=== PATIENT | female | born 2000 | race Two or more races ===

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

== ENCOUNTER 2021-07-30 16:52 | Outpatient (REF) | payer MEDICARE, MEDICAID, SELFPAY ==
[2021-07-30 18:38] LABS: Cholesterol 201 mg/dL; HDL Cholesterol 36 mg/dL; LDL Cholesterol Calculated 140 mg/dl; Triglycerides 126 mg/dL
[2021-07-31 11:07] LABS: DHEA Sulfate 258 mcg/dL (51-321)
[2021-08-01 06:21] LABS: Sex Hormone Binding Globulin 16 nmol/L (17-124)
[2021-08-02 11:42] LABS: Follicle Stimulating Hormone 8.2 mIU/mL
[2021-08-03 19:17] LABS: Testosterone, Free 5.1 pg/mL (0.1-6.4); Testosterone, Total 25 ng/dL (2-45)
[2021-08-04 21:47] LABS: Estradiol Free 0.89 pg/mL; Estradiol, Ultrasensitive 31 pg/mL
== END 2021-07-30 16:53 | disposition home or self-care (01) ==
LOC: HO.LAB 16:52
PROVIDERS: Visit Provider Pediatrics Pediatric Endocrinology
DX: E11.9 Type 2 diabetes mellitus without complications (principal); E66.01 Morbid (severe) obesity due to excess calories
CPT/HCPCS: 36415; 80061; 82627; 82670; 82681; 83001; 83498; 84270; 84402; 84403

== ENCOUNTER 2022-06-07 10:59 | Inpatient (IN) | payer MEDICARE, MEDICAID, SELFPAY ==
[2022-06-07 13:11] VITALS: BP 119/78; PULSE 91; RESP 18; TEMP 36.8; O2SAT 99; BMI 38.3
[2022-06-07 13:39] LABS: Appearance Urine Clear; Color Urine Yellow; Glucose Urine UA Negative (Negative); Leukocyte Esterase Urine Small (1+) (Negative); Nitrite Urine Negative (Negative); PH 5.5 (5.0-9.0); UMIC TRIGGER UACC YES; Urine Blood Negative (Negative); Urine Ketones Negative (Negative); Urine Protein Trace mg/dL (Neg-Trace)
[2022-06-07 13:59] LABS: Bacteria Urine None Seen (None Seen); Hyaline Casts Urine 0-2 /LPF (0-2); RBC Urine 0-2 /HPF (0-2); UACC Culture Trigger YES; WBC Urine 0-5 /HPF (0-5)
[2022-06-07 14:28] LABS: UPreg QC Valid YES; Urine Pregnancy NEGATIVE (NEGATIVE)
--- OUTSIDE RECORDS SUMMARY | 2022-06-07 18:20 | XMS_ITS | Continuity of Care Document ---
:2001 Author Organization [facility] Address [address] [place] [address]- Care Team Providers Name Role Phone Veronica Jones MD Primary Care Physician [place] [facility] [place] 04[place]14/20 [facility] [address] [place] [phone]- [facility] Attending Physician: Not on Staff, Attending MD Allergies, Adverse Reactions, Alerts Substance Reaction Severity Status NKA Active Medications Freestyle Lite Lancets See Instructions, # 200 each, Refills 11, Tot. Refills 11, Maintenance, IDDM. Use to check blood sugars 5-6x/day, 09/08/19 8:09:00 EST, Compound Start Date: 09/08/19 Status: OrderedFreestyle Lite Monitor See Instructions, # 2 each, Refills 5, Tot. Refills 5, Maintenance, IDDM. Use to check blood sugar. One for home and one for school, 09/08/19 8:08:00 EST, Compound Start Date: 09/08/19 Stop Date: 03/06/20 Status: OrderedFreestyle Lite Test Strips See Instructions, # 200 each, Refills 11, Tot. Refills 11, Maintenance, IDDM. Use to check blood sugar 5-6x/day, 09/08/19 8:11:00 EST, Compound Start Date: 09/08/19 Status: OrderedGlucagon Emergency Kit See Instructions, # 2 each, Refills 11, Tot. Refills 11, Maintenance, IDDM. Use for severe low bloodsugar. One for home and one for school, 10/29/19 16:42:00 EST, Compound, 148.4, cm, 10/29/19 15:59:00 EST, Height, 94, kg, 10/29/19 15:59:00 EST, Dry... Start Date: 10/29/19 Status: OrderedKetostix See Instructions, # 100 each, Refills 11, Tot. Refills 11, Maintenance, IDDM. Use to check for ketones if ill, vomiting or bg >250 twice in a row., 10/29/19 16:41:00 EST, Compound, 148.4, cm, 10/29/19 15:59:00 EST, Height, 94, kg, 10/29/19 15:59:00 ES... Start Date: 10/29/19 Status: OrderedmetFORMIN 500 mg oral tablet, extended release 2 tablet = 1,000 mg, By Mouth, 2 times a day, Please provide 2 month supply with next refill (st[place] country for month March), # 120 tablet, 6 Refills, Maintenance, 01/12/20 16:45:00 EDT,ER Tablet, [facility]/pharmacy #[id number], 148.4, cm, ... Start Date: 01/12/20 Stop Date: 08/09/20 Status: OrderedmetFORMIN 500 mg oral tablet, extended release 2 tablet = 1,000 mg, By Mouth, 2 times a day, for 30 days, # 120 tablet, 6 Refills, Hard Stop 06/30/20 8:41:00 EDT, 12/03/19 8:41:00 EDT, ER Tablet, [facility]/pharmacy #[id number], 148.4, cm, 10/29/19 15:59:00 EST, Height, 94, kg, 10/29/19 15:59:00 EST, Dry Weight Start Date: 12/03/19 Stop Date: 06/30/20 Status: OrderedPen [place], 32 G x 4 mm BD Ultra Fine III See instructions, # 200 each, Refills 5, Tot. Refills 5, Maintenance, use as directed for Type 2 Diabetes Mellitus to administer insulin daily, 09/08/19 15:39:00 EST, Compound, 148.1, cm, 09/08/19 12:51:00 EST, Height, 93.9, kg, 09/08/19 12:51:00 EST,... Start Date: 09/08/19 Stop Date: 03/06/20 Status: OrderedTresiba FlexTouch 100 units/mL subcutaneous solution = 50 units, Subcutaneous Infusion, Daily, Please provide 2 month supply with next refill (family will be out of country for month March), # 4 each, 11 Refills, Maintenance, 01/12/20 16:46:00 EDT, [id number], 148.4, cm, 10/29/19 15:59:00 ESTHe... Start Date: 01/12/20 Stop Date: 01/06/21 Status: Ordered Problem List Condition Effective Dates Status Health Status Informant Hyperandrogenism(Confirmed) Active Type 2 diabetes mellitus in patient 13 Active to 20 years of age with hemoglobin A1c goal of less than 7.5%(Confirmed)
--- OUTSIDE RECORDS SUMMARY | 2022-06-07 18:20 | XMS_ITS | Continuity of Care Document ---
:2001 Author Organization [facility] Address [address] [place] [phone]- Care Team Providers Name Role Phone Veronica Jones MD Primary Care Physician Encounter [facility] Date(s): 10/29/19 - 11/05/19 [facility] [address] [place] [phone]- [facility] Attending Physician: Not on Staff, Attending [...] mg, By Mouth, 2 times a day, # 120 tablet, 6 Refills, Maintenance, 09/08/19 15:38:00 EST, ER Tablet, [facility]/pharmacy #[id number], 148.1, cm, 09/08/19 12:51:00 EST, Height, 93.9, kg, 09/08/19 12:51:00 EST, Dry Weight Start Date: 09/08/19 Stop Date: 04/05/20 Status: OrderedPen [place], 32 G x 4 mm BD Ultra Fine III See instructions, # 200 each, Refills 5, Tot. Refills 5, Maintenance, use as directed for Type 2 Diabetes Mellitus to administer insulin daily, 09/08/19 15:39:00 EST, Compound, 148.1, cm, 09/08/19 12:51:00 EST, Height, 93.9, kg, 09/08/19 12:51:00 EST,... Start Date: 09/08/19 Stop Date: 03/06/20 Status: OrderedTresiba FlexTouch 100 units/mL subcutaneous solution = 25 units, Subcutaneous Infusion, Daily, # 1 each, 3 Refills, Maintenance, 09/13/19 14:40:00 EST, [id number], 147, cm, 09/13/19 13:07:00 EST, Height, 94.3, kg, 09/13/19 13:07:00 EST, Dry Weight Start Date: 09/13/19 Stop Date: 01/11/20 Status: Ordered Problem List Condition Effective Dates Status Health Status Informant Hyperandrogenism(Confirmed) Active Vital Signs Most recent to oldest [Reference Range]: 1 Height 148.4 cm (10/29/19 3:59 PM) Weight 94.0 kg (10/29/19 3:59 PM) Pulse Rate [55-90 bpm] 115 bpm *H* (10/29/19 3:59 PM) Body Mass Index [18.5-24.99] 42.68 *>HHI* (10/29/19 3:59 PM) Blood Pressure [71-110/30-71 mm Hg] 117/79 mm Hg *H* (10/29/19 3:59 PM) Dry Weight 94.0 kg (10/29/19 3:59 PM)
--- OUTSIDE RECORDS SUMMARY | 2022-06-07 18:20 | XMS_ITS | Continuity of Care Document ---
:2001 Author Organization [facility] Address [address] [place] [phone]- Care Team Providers Name Role Phone Veronica Jones MD Primary Care Physician [place] [facility] [place]s): 11/16/21 - 12/16/21 [facility] [address] [place] [phone]- Attending Physician: Toribio Guajardo Admitting Physician: Toribio Guajardo Referring Physician: Toribio Guajardo Allergies, Adverse Reactions, Alerts No Known Allergies Medications Freestyle Lite Lancets See Instructions, # 200 each, Refills 11, Tot. Refills 11, Maintenance, IDDM. Use to check blood sugars 6x/day, 11/16/21 16:21:00 EDT, Compound, 148, cm, 09/14/21 8:50:00 EST, Height, 95.6, kg, 08/17/21 13:04:00 EST, Dry Weight Start Date: 11/16/21 Status: OrderedFreestyle Lite Monitor See Instructions, # 2 each, Refills 5, Tot. Refills 5, Maintenance, IDDM. Use to check blood sugar. One for home and one for school, 08/17/21 13:43:00 EST, Compound, 148, cm, 08/17/21 13:04:00 EST, Height, 95.6, kg, 08/17/21 13:04:00 EST, Dry Weight Start Date: 08/17/21 Stop Date: 02/13/22 Status: OrderedFreestyle Lite Test Strips See Instructions, # 200 each, Refills 11, Tot. Refills 11, Maintenance, IDDM. Use to check blood sugar 6x/day, 11/16/21 16:21:00 EDT, Compound, 148, cm, 09/14/21 8:50:00 EST, Height, 95.6, kg, 08/17/2113:04:00 EST, Dry Weight Start Date: 11/16/21 Status: OrderedmetFORMIN 500 mg oral tablet, extended release 2 tablet = 1,000 mg, By Mouth, 2 times a day, for 30 days, Please provide 3 month supply with next refill (family will be out of country until end january), # 360 tablet, 5 Refills, Hard Stop 05/15/22 14:41:00 EDT, 11/16/21 14:41:00 EDT, ER Tablet, CV... Start Date: 11/16/21 Stop Date: 05/15/22 Status: OrderedmetFORMIN 500 mg oral tablet, extended release 2 tablet = 1,000 mg, By Mouth, 2 times a day, Please provide 3 month supply with next refill (familywill be out of country until end january), # 360 tablet, 5 Refills, Maintenance, 05/15/22 14:41:00 EDT, ER Tablet, [id number], 148, cm, ... Start Date: 05/15/22 Stop Date: 11/11/22 Status: OrderedOzempic 2 mg/1.5 mL (0.25 mg or 0.5 mg dose) subcutaneous solution = 0.25 mg, Subcutaneous Infusion, Every Friday, patient will be out of the country for 3 mo please give 3 mo supply, # 4.5 mL, 5 Refills, Maintenance, 11/16/21 14:41:00 EDT, [id number], Partial fill upon patient request if the prescription... Start Date: 11/16/21 Status: OrderedPen [place], 32 G x 4 mm BD Ultra Fine III See instructions, # 200 each, Refills 5, Tot. Refills 5, Maintenance, use as directed for Type 2 Diabetes Mellitus to administer insulin daily, 11/16/21 14:41:00 EDT, Compound, 148, cm, 09/14/21 8:50:00 EST, Height, 95.6, kg, 08/17/21 13:04:00 EST, Start Date: 11/16/21 Stop Date: 05/15/22 Status: OrderedTresiba FlexTouch 100 units/mL subcutaneous solution = 80 units, Subcutaneous Infusion, Daily, patient is leaving country for 3 mo please give 3 mo supply, # 45 mL, 5 Refills, Maintenance, 11/16/21 14:41:00 EDT, [id number], 148, cm, 09/14/21 8:50:00 EST, Height, 95.6, kg, 08/17/21 13:04:00 EST,... Start Date: 11/16/21 Stop Date: 05/15/22 Status: Ordered Problem List Condition Effective Dates Status Health Status Informant Hyperandrogenism(Confirmed) Active Type 2 diabetes mellitus in patient 13 Active to 20 years of age with hemoglobin A1c goal of less than 7.5%(Confirmed) Morbid obesity(Confirmed) Active Severe obesity(Confirmed) Active
--- OUTSIDE RECORDS SUMMARY | 2022-06-07 18:21 | XMS_ITS | Continuity of Care Document ---
:2001 Author Organization [facility] Address [address] [place] [phone]- Care Team Providers Name Role Phone Veronica Jones MD Primary Care Physician [place] [facility] 09/13/19 - 09/20/19 [facility] [address] [place] [phone]- [facility] Attending Physician: Fernanda Chiu MD Referring Physician: Veronica Jones MD Allergies, Adverse Reactions, Alerts Substance Reaction [...] 8:11:00 EST, Compound Start Date: 09/08/19 Status: OrderedmetFORMIN 500 mg oral tablet, extended release 2 tablet = 1,000 mg, By Mouth, 2 times a day, # 120 tablet, 6 Refills, Maintenance, 09/08/19 15:38:00 EST, ER Tablet, [id number], 148.1, cm, 09/08/19 12:51:00 EST, Height, 93.9, kg, 09/08/19 12:51:00 EST, Dry Weight Start Date: 09/08/19 Stop Date: 04/05/20 Status: OrderedPen [place], 32 G x 4 mm BD Ultra [...] recent to oldest [Reference Range]: 1 Height 147.0 cm (09/13/19 1:07 PM) Weight 94.3 kg (09/13/19 1:07 PM) Pulse Rate [55-90 bpm] 114 bpm *H* (09/13/19 1:07 PM) Body Mass Index [18.5-24.99] 43.64 *>HHI* (09/13/19 1:07 PM) Blood Pressure [71-110/30-71 mm Hg] 117/76 mm Hg *H* (09/13/19 1:07 PM) Dry Weight 94.3 kg (09/13/19 1:07 PM)
--- OUTSIDE RECORDS SUMMARY | 2022-06-07 18:21 | XMS_ITS | Continuity of Care Document ---
:2001 Author Organization [facility] Address [address] [place] [address]- Care Team Providers Name Role Phone Veronica Jones MD Primary Care Physician [place] [facility] [place]s): 06/22/21 - 07/22/21 [facility] [address] [place] [phone]- [place] Allergies, Adverse Reactions, Alerts Substance Reaction Severity Status NKA Active Medications Freestyle Lite Lancets See Instructions, # 200 each, Refills 11, Tot. Refills 11, Maintenance, IDDM. Use to check blood sugars 5-6x/day, 07/12/21 17:24:00 EST, Compound, 148.4, cm, 07/12/21 16:12:00 EST, Height, 96.8, kg, 07/12/21 16:12:00 EST, Dry Weight Start Date: 07/12/21 Status: OrderedFreestyle Lite Monitor See Instructions, # 2 each, Refills 5, Tot. Refills 5, Maintenance, IDDM. Use to check blood sugar. One for home and one for school, 07/12/21 17:24:00 EST, Compound, 148.4, cm, 07/12/21 16:12:00 EST, Height, 96.8, kg, 07/12/21 16:12:00 EST, Dry Weight Start Date: 07/12/21 Stop Date: 01/08/22 Status: OrderedFreestyle Lite Test Strips See Instructions, # 200 each, Refills 11, Tot. Refills 11, Maintenance, IDDM. Use to check blood sugar 5-6x/day, 07/12/21 17:24:00 EST, Compound, 148.4, cm, 07/12/21 16:12:00 EST, Height, 96.8, kg, 07/12/21 16:12:00 EST, Dry Weight Start Date: 07/12/21 Status: OrderedGlucagon Emergency Kit See Instructions, # [...] country for month March), # 120 tablet, 5 Refills, Maintenance, 07/12/21 17:07:00 EST,ER Tablet, [facility]/pharmacy #1, 148.4, cm, ... Start Date: 07/12/21 Stop Date: 01/08/22 Status: OrderedPen [place], 32 G x 4 mm BD Ultra Fine III See instructions, # 200 each, Refills 5, Tot. Refills 5, Maintenance, use as directed for Type 2 Diabetes Mellitus to administer insulin daily, 07/12/21 17:08:00 EST, Compound, 148.4, cm, 07/12/21 16:12:00 EST, Height, 96.8, kg, 07/12/21 16:12:00 EST,... Start Date: 07/12/21 Stop Date: 01/08/22 Status: OrderedTresiba FlexTouch 100 units/mL subcutaneous solution = 80 units, Subcutaneous Infusion, Daily, # 15 mL, 5 Refills, Maintenance, 07/12/21 17:07:00 EST, [id number], 148.4, cm, 07/12/21 16:12:00 EST, Height, 96.8, kg, 07/12/21 16:12:00 EST, Dry Weight Start Date: 07/12/21 Stop Date: 01/08/22 Status: Ordered Problem List Condition Effective Dates Status Health Status Informant Hyperandrogenism(Confirmed) Active Type 2 diabetes mellitus in patient 13 Active to 20 years of age with hemoglobin A1c goal of less than 7.5%(Confirmed) Morbid obesity(Confirmed) Active Severe obesity(Confirmed) Active
--- OUTSIDE RECORDS SUMMARY | 2022-06-07 18:21 | XMS_ITS | Continuity of Care Document ---
:2001 Author Organization [facility] Address [address] [place] [phone]- Care Team Providers Name Role Phone Veronica Jones MD Primary Care Physician [place] [facility] [place] [facility] [address] [place] [phone]- [facility] Attending Physician: Fernanda Chiu MD Referring Physician: [...] Date: 09/08/19 Stop Date: 04/05/20 Status: OrderedPen [place], 32 G x 4 mm BD Ultra [...] recent to oldest [Reference Range]: 1 Height 148.1 cm (09/08/19 12:51 PM) Weight 93.9 kg (09/08/19 12:51 PM) Pulse Rate [55-90 bpm] 115 bpm *H* (09/08/19 12:51 PM) Body Mass Index [18.5-24.99] 42.81 *>HHI* (09/08/19 12:51 PM) Blood Pressure [71-110/30-71 mm Hg] 125/73 mm Hg *H* (09/08/19 12:51 PM) Blood pressure sites Arm, right (09/08/19 12:51 PM) Dry Weight 93.9 kg (09/08/19 12:51 PM) Weight Obtained Via Standing scale (09/08/19 12:51 PM)
--- OUTSIDE RECORDS SUMMARY | 2022-06-07 18:21 | XMS_ITS | Continuity of Care Document ---
:2001 Author Organization [facility] Address [address] [place] [phone]- Care Team Providers Name Role Phone Veronica Jones MD Primary Care Physician [place] [facility] [place] 05/09/21 - 06/08/21 [facility] [address] [place] [phone]- [place] Allergies, Adverse Reactions, Alerts Substance Reaction [...] IDDM. Use to check blood sugar 5-6x/day, 06/01/20 15:39:00 EDT, Compound, 148.4, cm, 10/29/19 15:59:00 EST, Height, 94, kg, 10/29/19 15:59:00 EST, Dry Weight Start Date: 06/01/20 Status: OrderedGlucagon Emergency Kit See Instructions, # [...] country for month March), # 120 tablet, 0 Refills, Maintenance, 05/09/21 13:42:00 EDT,ER Tablet, [id number], 148.4, cm, ... Start Date: 05/09/21 Stop Date: 06/08/21 Status: OrderedPen [place], 32 G x 4 mm BD Ultra Fine III See instructions, # 200 each, Refills 5, Tot. Refills 5, Maintenance, use as directed for Type 2 Diabetes Mellitus to administer insulin daily, 11/06/20 13:22:00 EST, Compound, 148.4, cm, 10/29/19 15:59:00 EST, Height, 94, kg, 10/29/19 15:59:00 EST, D... Start Date: 11/06/20 Stop Date: 05/05/21 Status: OrderedTresiba FlexTouch 100 units/mL subcutaneous solution = 50 units, Subcutaneous Infusion, Daily, # 4 each, 0 Refills, Maintenance, 05/09/21 13:42:00 EDT, [id number], 148.4, cm, 10/29/19 15:59:00 EST, Height, 94, kg, 10/29/19 15:59:00 EST, Dry Weight Start Date: 05/09/21 Stop Date: 06/08/21 Status: Ordered Problem List Condition Effective Dates Status Health Status Informant Hyperandrogenism(Confirmed) Active Type 2 diabetes mellitus in patient 13 Active to 20 years of age with hemoglobin A1c goal of less than 7.5%(Confirmed) Morbid obesity(Confirmed) Active
--- OUTSIDE RECORDS SUMMARY | 2022-06-07 18:21 | XMS_ITS | Continuity of Care Document ---
:2001 Author Organization [facility] Address [address] [place] [address]- Care Team Providers Name Role Phone Veronica Jones MD Primary Care Physician Encounter [facility] Date(s): 10/29/19 - 12/10/19 [facility] [address] [place] [phone]- [facility] Attending Physician: Not on Staff, Attending MD [...] day, # 120 tablet, 6 Refills, Maintenance, 06/30/20 8:41:00EDT, ER Tablet, [facility]/pharmacy #[id number], 148.4, cm, 10/29/19 15:59:00 EST, Height, 94, kg, 10/29/19 15:59:00 EST, Dry Weight Start Date: 06/30/20 Stop Date: 01/26/21 Status: OrderedmetFORMIN 500 mg oral tablet, extended release 2 tablet = 1,000 mg, By Mouth, 2 times a day, for 30 days, # 120 tablet, 6 Refills, Hard Stop 06/30/20 8:41:00 EDT, 12/03/19 8:41:00 EDT, ER Tablet, [facility]/pharmacy #[id number], 148.4, cm, 10/29/19 15:59:00 EST, Height, 94, kg, 10/29/19 15:59:00 EST, Dry Weight Start Date: 12/03/19 Stop Date: 06/30/20 Status: OrderedPen [place], 32 G x 4 mm BD Ultra [...] units, Subcutaneous Infusion, Daily, # 4 each, 11 Refills, Maintenance, 12/02/19 15:10:00 EDT, [facility]/pharmacy #[id number], 148.4, cm, 10/29/19 15:59:00 EST, Height, 94, kg, 10/29/19 15:59:00 EST, Dry Weight Start Date: 12/02/19 Stop Date: 11/26/20 Status: Ordered Problem List Condition Effective Dates Status Health Status Informant Hyperandrogenism(Confirmed) Active Type 2 diabetes mellitus in patient 13 Active to 20 years of age with hemoglobin A1c goal of less than 7.5%(Confirmed)
--- OUTSIDE RECORDS SUMMARY | 2022-06-07 18:21 | XMS_ITS | Continuity of Care Document ---
:2001 Author Organization [facility] Address [address] [place] [phone]- Care Team Providers Name Role Phone Veronica Jones MD Primary Care Physician Encounter [facility] [place] Date(s): 09/17/19 - 10/24/19 [facility] [address] [place] [phone]- [facility] Attending Physician: Not on Staff, [...] Date: 09/08/19 Stop Date: 04/05/20 Status: OrderedPen [place], 32 G x 4 mm BD Ultra [...]
--- OUTSIDE RECORDS SUMMARY | 2022-06-07 18:21 | XMS_ITS | Continuity of Care Document ---
:2001 Author Organization [facility] Address [address] [place] [phone]- Care Team Providers Name Role Phone Veronica Jones MD Primary Care Physician En[place] [facility] [place] Date(s): 08/18/21 - 12/16/21 [facility] [address] [place] [phone]- Attending Physician: Not on Staff, Attending MD Allergies, Adverse Reactions, Alerts No Known Allergies [...] the prescription... Start Date: 11/16/21 Status: OrderedPen [place], 32 G x 4 mm BD Ultra Fine III See instructions, # 200 each, Refills 5, Tot. Refills 5, Maintenance, use as directed for Type 2 Diabetes Mellitus to administer insulin daily, 11/16/21 14:41:00 EDT, Compound, 148, cm, 09/14/21 8:50:00 EST, Height, 95.6, kg, 08/17/21 13:04:00 ESTDr... Start Date: 11/16/21 Stop Date: 05/15/22 Status: [...]
--- OUTSIDE RECORDS SUMMARY | 2022-06-07 18:21 | XMS_ITS | Continuity of Care Document ---
:2001 Author Organization [facility] Address [address] [place] [phone]- Care Team Providers Name Role Phone Veronica Jones MD Primary Care Physician En[place] [facility] [place] Date(s): 09/14/21 - 10/14/21 [facility] [address] [place] [phone]- Allergies, Adverse Reactions, Alerts No Known Allergies [...] EST, Dry Weight Start Date: 07/12/21 Status: OrderedKetostix See Instructions, # 100 each, [...] 5 Refills, Maintenance, 07/12/21 17:07:00 EST,ER Tablet, [facility]/pharmacy #[id number], 148.4, cm, ... Start Date: 07/12/21 Stop Date: 01/08/22 Status: OrderedOzempic 2 mg/1.5 mL (0.25 mg or 0.5 mg dose) subcutaneous solution = 0.25 mg, Subcutaneous Infusion, Every Friday, # 1.5 mL, 5 Refills, Maintenance, 08/20/21 11:33:00 EST, [facility]/pharmacy #[id number], Partial fill upon patient request if the prescription is for a schedule II opioid drug., 0.25 mg Subcutaneous Infusion Ever... Start Date: 08/20/21 Status: OrderedPen [place], 32 G x 4 mm BD Ultra Fine III See instructions, # 200 each, Refills 5, Tot. Refills 5, Maintenance, use as directed for Type 2 Diabetes Mellitus to administer insulin daily, 07/12/21 17:08:00 EST, Compound, 148.4, cm, 07/12/21 16:12:00 EST, Height, 96.8, kg, 07/12/21 16:12:00 EST,... Start Date: 07/12/21 Stop Date: 01/08/22 Status: OrderedProvera 10 mg oral tablet 10 mg, 1, tablet, By Mouth, Daily, # 10 tablet, Refills 5, Tot. Refills 5, Maintenance, 08/23/21 17:21:00 EST, Route to Pharmacy Electronically, [facility]/pharmacy #[id number], Partial fill upon patient request ifthe prescription is for a schedule II opioid drug... Start Date: 08/23/21 Stop Date: 10/22/21 Status: OrderedTresiba FlexTouch 100 units/mL subcutaneous solution = 80 units, Subcutaneous Infusion, Daily, # 15 mL, 5 Refills, Maintenance, 07/12/21 17:07:00 EST, [facility]/pharmacy #[id number], 148.4, cm, 07/12/21 16:12:00 EST, Height, 96.8, kg, 07/12/21 16:12:00 EST, Dry Weight Start Date: 07/12/21 Stop Date: 01/08/22 Status: Ordered Problem List Condition Effective Dates Status Health Status Informant Hyperandrogenism(Confirmed) Active Type 2 diabetes mellitus in patient 13 Active to 20 years of age with hemoglobin A1c goal of less than 7.5%(Confirmed) Morbid obesity(Confirmed) Active Severe obesity(Confirmed) Active Vital Signs Most recent to oldest [Reference Range]: 1 Height 148 cm (09/14/21 8:50 AM) Weight 95.6 kg (09/14/21 8:50 AM)
--- OUTSIDE RECORDS SUMMARY | 2022-06-07 18:21 | XMS_ITS | Continuity of Care Document ---
:2001 Author Organization [facility] Address [address] [place] [address]- Care Team Providers Name Role Phone Veronica Jones MD Primary Care Physician [facility] Date(s): 11/10/19 - 11/20/19 [facility] [address] [place] [address]- [facility] Attending Physician: Admtr, Ar8 Admitting Physician: Admtr, Ar8 Referring Physician: Admtr, Ar8 Allergies, Adverse Reactions, Alerts Substance Reaction Severity [...] Refills, Maintenance, 09/08/19 15:38:00 EST, ER Tablet, [facility]/pharmacy #[id number], 148.1, cm, 09/08/19 12:51:00 EST, Height, 93.9, kg, 09/08/19 12:51:00 EST, Dry Weight Start Date: 09/08/19 Stop Date: 04/05/20 Status: OrderedPen [place], 32 G x 4 mm BD Ultra Fine III See instructions, # 200 each, Refills 5, Tot. Refills 5, Maintenance, use as directed for Type 2 Diabetes Mellitus to administer insulin daily, 09/08/19 15:39:00 EST, Compound, 148.1, cm, 09/08/19 12:51:00 EST, Height, 93.9, kg, 09/08/19 12:51:00 EST,... Start Date: 09/08/19 Stop Date: 03/06/20 Status: OrderedTresiba FlexTouch 100 units/mL subcutaneous solution = 30 units, Subcutaneous Infusion, Daily, # 1 each, 1 Refills, Maintenance, 01/11/20 14:40:00 EDT, [facility]/pharmacy #[id number], 148.4, cm, 10/29/19 15:59:00 EST, Height, 94, kg, 10/29/19 15:59:00 EST, Dry Weight Start Date: 01/11/20 Stop Date: 03/11/20 Status: OrderedTresiba FlexTouch 100 units/mL subcutaneous solution = 25 units, Subcutaneous Infusion, Daily, for 30 days, # 1 each, 3 Refills, Hard Stop 01/11/20 14:40:00 EDT, 09/13/19 14:40:00 EST, [id number], 147, cm, 09/13/19 13:07:00 EST, Height, 94.3, kg,09/13/19 13:07:00 EST, Dry Weight Start Date: 09/13/19 Stop Date: 01/11/20 Status: Ordered Problem List Condition Effective Dates Status Health Status Informant Hyperandrogenism(Confirmed) Active
--- OUTSIDE RECORDS SUMMARY | 2022-06-07 18:21 | XMS_ITS | Continuity of Care Document ---
:2001 Author Organization [facility] Address [address] [place] [address]- Care Team Providers Name Role Phone Veronica Jones MD Primary Care Physician [facility] Date(s): 10/29/19 - 12/10/19 [facility] [address] [place] [phone]- [facility] Attending Physician: Bethany Benedict Allergies, Adverse Reactions, Alerts Substance Reaction Severity [...] 6 Refills, Maintenance, 06/30/20 8:41:00EDT, ER Tablet, [facility]/pharmacy #[id number], 148.4, cm, 10/29/19 15:59:00 EST, Height, 94, kg, 10/29/19 15:59:00 EST, Dry Weight Start Date: 06/30/20 Stop Date: 01/26/21 Status: OrderedmetFORMIN 500 mg oral tablet, extended release 2 tablet = 1,000 mg, By Mouth, 2 times a day, for 30 days, # 120 tablet, 6 Refills, Hard Stop 06/30/20 8:41:00 EDT, 12/03/19 8:41:00 EDT, ER Tablet, [facility]/pharmacy #[id number], 148.4, cm, 10/29/19 15:59:00 EST, Height, 94, kg, 10/29/19 15:59:00 EST, Dry Weight Start Date: 12/03/19 Stop Date: 06/30/20 Status: OrderedPen [place], 32 G x 4 mm BD Ultra Fine III See instructions, # 200 each, Refills 5, Tot. Refills 5, Maintenance, use as directed for Type 2 Diabetes Mellitus to administer insulin daily, 09/08/19 15:39:00 EST, Compound, 148.1, cm, 09/08/19 12:51:00 EST, Height, 93.9, kg, 09/08/19 12:51:00 EST,... Start Date: 09/08/19 Stop Date: 7/6/20 Status: OrderedTresiba FlexTouch 100 units/mL subcutaneous solution = 50 units, Subcutaneous Infusion, Daily, # 4 each, 11 Refills, Maintenance, 12/02/19 15:10:00 EDT, [facility]/pharmacy #[id number], 148.4, cm, 10/29/19 15:59:00 EST, Height, 94, kg, 10/29/19 15:59:00 EST, Dry Weight Start Date: 12/02/19 Stop Date: 11/26/20 Status: Ordered Problem List Condition Effective Dates Status Health Status Informant Hyperandrogenism(Confirmed) Active Type 2 diabetes mellitus in patient 13 Active to 20 years of age with hemoglobin A1c goal of less than 7.5%(Confirmed)
--- OUTSIDE RECORDS SUMMARY | 2022-06-07 18:21 | XMS_ITS | Continuity of Care Document ---
:2001 Author Organization [facility] Address [address] [place] [address]- Care Team Providers Name Role Phone Veronica Jones MD Primary Care Physician Encounter [facility] [place] [id number] Date(s): 06/15/20 - 08/13/20 [facility] [address] [place] [address]- Attending Physician: Rikki Duran MD Admitting Physician: Rikki Duran MD Allergies, Adverse Reactions, Alerts Substance Reaction [...] provide 2 month supply with next refill ([place]), # 120 tablet, 6 Refills, Maintenance, 01/12/20 16:45:00 EDT,ER Tablet, [id number], 148.4, cm, ... Start Date: 01/12/20 Stop Date: 08/09/20 Status: OrderedPen [place], 32 G x 4 mm BD Ultra [...] (family will be out of country for march), # 4 each, 11 Refills, Maintenance, 01/12/20 16:46:00 EDT, [id number], 148.4, cm, 10/29/19 15:59:00 EST, He... Start Date: 01/12/20 Stop Date: 01/06/21 Status: Ordered Problem List Condition Effective Dates Status Health Status Informant Hyperandrogenism(Confirmed) Active Type 2 diabetes mellitus in patient 13 Active to 20 years of age with hemoglobin A1c goal of less than 7.5%(Confirmed) Morbid obesity(Confirmed) Active
--- OUTSIDE RECORDS SUMMARY | 2022-06-07 18:21 | XMS_ITS | Continuity of Care Document ---
:2001 Author Organization [facility] Address [address] [place] [address]- Care Team Providers Name Role Phone Veronica Jones MD Primary Care Physician En[place] [facility] [place] Date(s): 08/23/21 - 09/22/21 [facility] [address] [place] [phone]- [place] Allergies, Adverse Reactions, Alerts No Known Allergies [...] 5 Refills, Maintenance, 07/12/21 17:07:00 EST,ER Tablet, [facility]/pharmacy #[id number], 148.4, cm, ... Start Date: 07/12/21 Stop Date: 01/08/22 Status: OrderedOzempic 2 mg/1.5 mL (0.25 mg or 0.5 mg dose) subcutaneous solution = 0.25 mg, Subcutaneous Infusion, Every Friday, # 1.5 mL, 5 Refills, Maintenance, 08/20/21 11:33:00 EST, [facility]/pharmacy #[id number], Partial fill upon patient request if the prescription is for a schedule II opioid drug., 0.25 mg Subcutaneous Infusion Ever... Start Date: 08/20/21 Status: OrderedPen [place], 32 G x 4 mm BD Ultra [...] 08/23/21 17:21:00 EST, Route to Pharmacy Electronically, [facility]/pharmacy #[id number], Partial fill upon patient request ifthe prescription is for a schedule II opioid drug... Start Date: 08/23/21 Stop Date: 10/22/21 Status: OrderedTresiba FlexTouch 100 units/mL subcutaneous solution = 80 units, Subcutaneous Infusion, Daily, # 15 mL, 5 Refills, Maintenance, 07/12/21 17:07:00 EST, [id number], 148.4, cm, 07/12/21 16:12:00 EST, Height, [...]
--- OUTSIDE RECORDS SUMMARY | 2022-06-07 18:21 | XMS_ITS | Continuity of Care Document ---
:2001 Author Organization [facility] Address [address] [place] [address]- Care Team Providers Name Role Phone Veronica Jones MD Primary Care Physician En[place] [facility] Date(s): 07/14/20 - 08/13/20 [facility] [address] [place] [address]- Attending Physician: Admtr, Ar8 Admitting Physician: Admtr, [...] Date: 01/12/20 Stop Date: 08/09/20 Status: OrderedPen [place], 32 G x 4 mm BD Ultra [...]
--- OUTSIDE RECORDS SUMMARY | 2022-06-07 18:21 | XMS_ITS | Continuity of Care Document ---
:2001 Author Organization [facility] Address [address] [place] [address]- Care Team Providers Name Role Phone Veronica Jones MD Primary Care Physician [facility] Date(s): 01/12/20 - 02/11/20 [facility] [address] [place] [phone]- [facility] Attending Physician: Admtr, Ar8 Admitting Physician: Admtr, [...] 6 Refills, Maintenance, 01/12/20 16:45:00 EDT,ER Tablet, [facility]/pharmacy #[id number], 148.4, cm, ... Start Date: 01/12/20 Stop Date: 08/09/20 Status: OrderedmetFORMIN 500 mg oral tablet, extended release 2 tablet = 1,000 mg, By Mouth, 2 times a day, for 30 days, # 120 tablet, 6 Refills, Hard Stop 06/30/20 8:41:00 EDT, 12/03/19 8:41:00 EDT, ER Tablet, [facility]/pharmacy #[id number], 148.4, cm, 10/29/19 15:59:00 EST, Height, 94, kg, 10/29/19 15:59:00 EST, Dry Weight Start Date: 12/03/19 Stop Date: 06/30/20 Status: OrderedPen [place], 32 G x 4 mm BD Ultra [...]
--- OUTSIDE RECORDS SUMMARY | 2022-06-07 18:21 | XMS_ITS | Continuity of Care Document ---
:2001 Author Organization [facility] Address [address] [place] [address]- Care Team Providers Name Role Phone Karen HUYNH, Veronica Primary Care Physician Encounter [facility] Date(s): 12/02/19 - 12/09/19 [facility] [address] [place] [address]- [facility] Attending Physician: Rikki Duran MD Allergies, Adverse Reactions, [...] 6 Refills, Maintenance, 06/30/20 8:41:00EDT, ER Tablet, [facility]/pharmacy #[id number], 148.4, cm, 10/29/19 15:59:00 EST, Height, 94, kg, 10/29/19 15:59:00 EST, Dry Weight Start Date: 06/30/20 Stop Date: 01/26/21 Status: OrderedmetFORMIN 500 mg oral tablet, extended release 2 tablet = 1,000 mg, By Mouth, 2 times a day, for 30 days, # 120 tablet, 6 Refills, Hard Stop 06/30/20 8:41:00 EDT, 12/03/19 8:41:00 EDT, ER Tablet, [facility]/pharmacy #[id number], 148.4, cm, 10/29/19 15:59:00 EST, Height, 94, kg, 10/29/19 15:59:00 EST, Dry Weight Start Date: 12/03/19 Stop Date: 06/30/20 Status: OrderedPen [place], 32 G x 4 mm BD Ultra [...] each, 11 Refills, Maintenance, 12/02/19 15:10:00 EDT, [facility]/pharmacy #[id number], 148.4, cm, 10/29/19 15:59:00 EST, Height, 94, kg, 10/29/19 15:59:00 EST, Dry Weight Start Date: 12/02/19 Stop Date: 11/26/20 Status: Ordered Problem List Condition Effective Dates Status Health Status Informant Hyperandrogenism(Confirmed) Active Type 2 diabetes mellitus in patient 13 Active to 20 years of age with hemoglobin A1c goal of less than 7.5%(Confirmed)
--- OUTSIDE RECORDS SUMMARY | 2022-06-07 18:21 | XMS_ITS | Continuity of Care Document ---
:2001 Author Organization [facility] Address [address] [place] [address]- Care Team Providers Name Role Phone Veronica Jones MD Primary Care Physician Encounter [facility] [place] Date(s): 09/24/19 - 10/31/19 [facility] [address] [place] [address]- [facility] Attending Physician: Justin HUYHN, Kateryna Referring Physician: Veronica Jones MD Allergies, Adverse [...] Refills, Maintenance, 09/08/19 15:38:00 EST, ER Tablet, [facility]/pharmacy #[id number], 148.1, cm, 09/08/19 12:51:00 EST, Height, 93.9, kg, 09/08/19 12:51:00 EST, Dry Weight Start Date: 09/08/19 Stop Date: 04/05/20 Status: OrderedPen [place], 32 G x 4 mm BD Ultra [...] each, 3 Refills, Maintenance, 09/13/19 14:40:00 EST, [facility]/pharmacy #[id number], 147, cm, 09/13/19 13:07:00 EST, Height, 94.3, kg, 09/13/19 13:07:00 EST, Dry Weight Start Date: 09/13/19 Stop Date: 01/11/20 Status: Ordered Problem List Condition Effective Dates Status Health Status Informant Hyperandrogenism(Confirmed) Active
--- OUTSIDE RECORDS SUMMARY | 2022-06-07 18:21 | XMS_ITS | Continuity of Care Document ---
:2001 Author Organization [facility] Address [address] [place] [address]- Care Team Providers Name Role Phone Veronica Jones MD Primary Care Physician Encounter [facility] Date(s): 07/23/21 - 08/22/21 [facility] [address] [place] [address]- [place] Allergies, Adverse Reactions, Alerts Substance Reaction [...] 5 Refills, Maintenance, 07/12/21 17:07:00 EST,ER Tablet, [facility]/pharmacy #207, 148.4, cm, ... Start Date: 07/12/21 Stop Date: 01/08/22 Status: OrderedOzempic 2 mg/1.5 mL (0.25 mg or 0.5 mg dose) subcutaneous solution = 0.25 mg, Subcutaneous Infusion, Every Friday, # 1.5 mL, 5 Refills, Maintenance, 08/20/21 11:33:00 EST, [facility]/pharmacy #207, Partial fill upon patient request if the prescription is for a schedule II opioid drug., 0.25 mg Subcutaneous Infusion Ever... Start Date: 08/20/21 Status: OrderedPen [place], 32 G x 4 mm BD Ultra [...]
--- OUTSIDE RECORDS SUMMARY | 2022-06-07 18:21 | XMS_ITS | Continuity of Care Document ---
:2001 Author Organization [facility] Address [address] [place] [address]- Care Team Providers Name Role Phone Veronica Jones MD Primary Care Physician Encounter [facility] [place] Date(s): 04/07/20 - 05/07/20 [facility] [address] [place] [phone]- [facility] Attending Physician: Admtr, Ar8 Admitting Physician: Admtr, [...] 6 Refills, Maintenance, 01/12/20 16:45:00 EDT,ER Tablet, [facility]/pharmacy #[id number], 148.4, cm, ... Start Date: 01/12/20 Stop Date: 08/09/20 Status: OrderedmetFORMIN 500 mg oral tablet, extended release 2 tablet = 1,000 mg, By Mouth, 2 times a day, for 30 days, # 120 tablet, 6 Refills, Hard Stop 06/30/20 8:41:00 EDT, 12/03/19 8:41:00 EDT, ER Tablet, [facility]/pharmacy #[id number], 148.4, cm, 10/29/19 15:59:00 EST, Height, 94, kg, 10/29/19 15:59:00 EST, Dry Weight Start Date: 12/03/19 Stop Date: 06/30/20 Status: OrderedPen [place], 32 G x 4 mm BD Ultra [...]
--- OUTSIDE RECORDS SUMMARY | 2022-06-07 18:21 | XMS_ITS | Continuity of Care Document ---
:2001 Author Organization [facility] Address [address] [place] [address]- Care Team Providers Name Role Phone Veronica Jones MD Primary Care Physician Encounter [facility] [place] Date(s): 09/07/19 - 10/07/19 [facility] [address] [place] [address]- [facility] Attending Physician: Fernanda Chiu MD Referring Physician: [...] Date: 09/08/19 Stop Date: 04/05/20 Status: OrderedPen [place], 32 G x 4 mm BD Ultra [...]
--- OUTSIDE RECORDS SUMMARY | 2022-06-07 18:21 | XMS_ITS | Continuity of Care Document ---
:2001 Author Organization [facility] Address [address] [place] [address]- Care Team Providers Name Role Phone Veronica Jones MD Primary Care Physician [facility]counter [facility] Date(s): 10/29/19 - 11/08/19 [facility] [address] [place] [address]- [facility] Attending Physician: AdmtrToribio Admitting Physician: Admtr, Toribio Referring Physician: Admtr, Ar8 Allergies, Adverse Reactions, [...] Maintenance, 09/08/19 15:38:00 EST, ER Tablet, [facility]/pharmacy #[id number], 148.1, cm, 09/08/19 12:51:00 EST, Height, 93.9, kg, 09/08/19 12:51:00 EST, Dry Weight Start Date: 09/08/19 Stop Date: 04/05/20 Status: OrderedPen [place], 32 G x 4 mm BD Ultra [...]
--- OUTSIDE RECORDS SUMMARY | 2022-06-07 18:21 | XMS_ITS | Continuity of Care Document ---
:2001 Author Organization [facility] Address [address] [place] [address]- Care Team Providers Name Role Phone Veronica Jones MD Primary Care Physician Encounter [facility] Date(s): 08/23/21 - 09/28/[address] [address] Attending Physician: Rikki Duran MD Admitting Physician: Rikki Duran MD Referring Physician: Rikki Duran MD Allergies, Adverse Reactions, Alerts No Known [...] 5 Refills, Maintenance, 07/12/21 17:07:00 EST,ER Tablet, [facility]/pharmacy #[id number], 148.4, cm, ... Start Date: 07/12/21 Stop Date: 01/08/22 Status: OrderedOzempic 2 mg/1.5 mL (0.25 mg or 0.5 mg dose) subcutaneous solution = 0.25 mg, Subcutaneous Infusion, Every Friday, # 1.5 mL, 5 Refills, Maintenance, 08/20/21 11:33:00 EST, [facility]/pharmacy #[id number], Partial fill upon patient request if the prescription is for a schedule II opioid drug., 0.25 mg Subcutaneous Infusion Ever... Start Date: 08/20/21 Status: OrderedPen [place], 32 G x 4 mm BD Ultra [...] 08/23/21 17:21:00 EST, Route to Pharmacy Electronically, [facility]/pharmacy #[id number], Partial fill upon patient request ifthe prescription is for a schedule II opioid drug... Start Date: 08/23/21 Stop Date: 10/22/21 Status: OrderedTresiba FlexTouch 100 units/mL subcutaneous solution = 80 units, Subcutaneous Infusion, Daily, # 15 mL, 5 Refills, Maintenance, 07/12/21 17:07:00 EST, [facility]/pharmacy #[id number], 148.4, cm, 07/12/21 16:12:00 EST, Height, [...]
--- OUTSIDE RECORDS SUMMARY | 2022-06-07 18:21 | XMS_ITS | Continuity of Care Document ---
:2001 Author Organization [facility] Address [address] [place] [address]- Care Team Providers Name Role Phone Veronica Jones MD Primary Care Physician Encounter [facility] [place] Date(s): 11/09/21 - 12/09/21 [facility] [address] [place] [address]- [place] Allergies, Adverse Reactions, Alerts No Known [...] the prescription... Start Date: 11/16/21 Status: OrderedPen [place], 32 G x 4 mm BD Ultra [...]
--- OUTSIDE RECORDS SUMMARY | 2022-06-07 18:21 | XMS_ITS | Continuity of Care Document ---
:2001 Author Organization [facility] Address [address] [place] [address]- Care Team Providers Name Role Phone Veronica Jones MD Primary Care Physician [place] [facility] 09/06/19 - 10/07/19 [facility] [address] [place] [phone]- [facility] Attending Physician: Not on Staff, [...] Date: 09/08/19 Stop Date: 04/05/20 Status: OrderedPen [place], 32 G x 4 mm BD Ultra [...]
--- NOTE | 2022-06-07 19:05 | ED_ITS ---
HPI - Abdominal Pain General Chief Complaint: Abdominal Pain <TONA Pastrana Last Filed: 06/07/22 21:39> Stated Complaint: Source: patient Filed: 06/07/22 21:39> Time Seen by Provider: 06/07/22 19:04 <TONA Pastrana Last Filed: 06/07/22 21:39> Source: patient <TONA Pastrana Last Filed: 06/07/22 21:39> Mode of arrival: ambulatory <TONA Pastrana Last Filed: 06/07/22 21:39> Limitations: no limitations <TONA Pastrana Last Filed: 06/07/22 21:39> History of Present Illness HPI narrative: 22 yo female with history of DM2, obesity, who presents to the ER for evaluation of upper abdominal pain that radiates to her lower abdomen & back as well as nausea and vomiting that started several days ago. She reports the pain is mostly in her upper abdomen and her bilateral middle/lower back. She has been vomiting the last couple of days, last was earlier today. No diarrhea, fever, chills, SOB or chest pain. She reports the pain starts in her epigastric area Severity: moderate Quality: aching TONA Stephenson Last Filed: 06/07/22 21:39> MD elicited complaint: Exacerbating factors: eating 21:39> Pertinent past history: none <TONA Pastrana Last Filed: 06/07/22 21:39> Onset (ago): day(s) <TONA Pastrana Last Filed: 06/07/22 21:39> Location: epigastric <TONA Pastrana Last Filed: 06/07/22 21:39> Severity: No Known Allergies Allergy Unverified 05/18/20 18:43 [No Known Allergies*] Review of Systems Review of Systems Relieving factors: nothing <TONA Pastrana Last Filed: 06/07/22 21:39> Associated symptoms: nausea and vomiting <TONA Pastrana Last Filed: 06/07/22 21:39> Related Data Patient : No <TONA Pastrana Last Filed: 06/07/22 21:39> Home Medications: Previous Rx's Medication Instructions Recorded ondansetron 4 mg disintegrating 4 mg PO Q6H PRN nausea and 06/07/22 tablet vomiting #14 tabs <TONA Pastrana - Last Filed: 06/07/22 21:39> Review of Systems Allergy/AdvReac Type Severity Reaction Status Date / Time No Known Allergies Allergy Unverified 05/18/20 18:43 [No Known Allergies*] <TONA Pastrana - Last Filed: 06/07/22 21:39> Review of Systems Review of Systems Constitutional: No Fever, No Chills ENT/Mouth: No sore throat, No Rhinorrhea, No Swallowing Difficulty Cardiovascular: No Chest Pain, No SOB, No Orthopnea, No Edema Respiratory: No Cough, No Sputum, No Wheezing, No dyspnea Gastrointestinal: + Nausea, +Vomiting, No Diarrhea, + abdominal Pain, No Hematochezia, No Melena Genitourinary: No Dysuria, No Urinary Frequency, No Hematuria Musculoskeletal: No joint pain, + Myalgias Skin: No Skin Lesions, No rash Neuro: No Weakness, No Numbness, No Dizziness, No Headache Psych: No Anxiety/Panic, No Depression Heme/Lymph: No Bruising, No Lymphadenopathy Endocrine: No Polyuria, No Polydipsia <TONA Pastrana - Last Filed: 06/07/22 21:39> [facility] Social History Social History: Social History Yes 19:51 Physical Exam ED Vital Signs: 06/07/22 13:11 06/07/22 19:51 06/07/22 22:00 Temperature 98.2 F 98.1 F 98.4 F Pulse Rate 91 100 92 Respiratory Rate 18 18 18 Blood Pressure 119/78 131/80 111/63 Pulse Oximetry 99 98 98 Oxygen Delivery Method Room Air Room Air BMI result Anion Gap (12-20) BUN (9-16) mg/dL Creatinine (0.5-1.4) mg/dL Estim Creat Clear Calc Estimated GFR POC Glucose 208 H (60-115) mg/dL Random Glucose (60-115) mg/dL Calcium (8.4-10.2) mg/dL Magnesium (1.6-2.6) mg/dL Total Bilirubin (0.0-1.0) mg/dL Direct Bilirubin (0.0-0.5) mg/dL AST (5-31) U/L ALT (0-31) U/L Alkaline Phosphatase (39-117) U/L Total Protein (6.5-8.0) g/dL Albumin (3.5-5.0) g/dL Triglycerides mg/dL Lipase Urine Color Yellow Body Mass Index 38.3 <TONA Pastrana - Last Filed: 06/07/22 21:39> Vital Signs - 24 hr 13:11 06/07/22 Urine Appearance Clear Urine pH 5.5 (5.0-9.0) Ur Specific [place] 1.020 (1.005-1.025)
--- NOTE | 2022-06-07 19:05 | ED.ABDPAIN ---
HPI - Abdominal Pain General Chief Complaint: Abdominal Pain <TONA Pastrana Last Filed: 06/07/22 21:39> Stated Complaint: abdf pain rad. to back/vomiting/diabetic <TONA Pastrana Last Filed: 06/07/22 21:39> Time Seen by Provider: 06/07/22 19:04 <TONA Pastrana - Last Filed: 06/07/22 21:39> Source: patient <TONA Pastrana Last Filed: 06/07/22 21:39> Mode of arrival: ambulatory <TONA Pastrana Last Filed: 06/07/22 21:39> Limitations: no limitations <TONA Pastrana Last Filed: 06/07/22 21:39> History of Present Illness HPI narrative: 22 yo female with history of DM2, obesity, who presents to the ER for evaluation of upper abdominal pain that radiates to her lower abdomen & back as well as nausea and vomiting that started several days ago. She reports the pain is mostly in her upper abdomen and her bilateral middle/lower back. She has been vomiting the last couple of days, last was earlier today. No diarrhea, fever, chills, SOB or chest pain. She reports the pain starts in her epigastric area and radiates to bilateral lower quadrants. She denies any urinary symtpoms or possibility of . Denies vaginal discharge or concern for STI. <TONA Pastrana - Last Filed: 06/07/22 21:39> MD elicited complaint: abdominal pain and flank pain <TONA Pastrana Last Filed: 06/07/22 21:39> Pertinent past history: none <TONA Pastrana Last Filed: 06/07/22 21:39> Onset (ago): day(s) <TONA Pastrana Last Filed: 06/07/22 21:39> Pain Consistency: intermittent <TONA Pastrana Last Filed: 06/07/22 21:39> Location: epigastric <TONA Pastrana Last Filed: 06/07/22 21:39> Severity: moderate <TONA Pastrana Last Filed: 06/07/22 21:39> Quality: aching <TONA Pastrana Last Filed: 06/07/22 21:39> Radiation: LLQ and RLQ <TONA Pastrana Last Filed: 06/07/22 21:39> Migration to: LLQ and RLQ <TONA Pastrana Last Filed: 06/07/22 21:39> Exacerbating factors: eating <TONA Pastrana Last Filed: 06/07/22 21:39> Relieving factors: nothing <TONA Pastrana Last Filed: 06/07/22 21:39> Associated symptoms: nausea and vomiting <TONA Pastrana Last Filed: 06/07/22 21:39> Related Data Patient : No <TONA Pastrana Filed: 06/07/22 21:39> Home Medications: Previous Rx's Medication Instructions Recorded ondansetron 4 mg disintegrating 4 mg PO Q6H PRN nausea and 06/07/22 tablet vomiting #14 tabs <TONA Pastrana Last Filed: 06/07/22 21:39> Allergies/Adverse Reactions: Allergies Allergy/AdvReac Type Severity Reaction Status Date / Time No Known Allergies Allergy Unverified 05/18/20 18:43 [No Known Allergies*] <TONA Pastrana Last Filed: 06/07/22 21:39> Review of Systems Review of Systems Constitutional: No Fever, No Chills ENT/Mouth: No sore throat, No Rhinorrhea, No Swallowing Difficulty Cardiovascular: No Chest Pain, No SOB, No Orthopnea, No Edema Respiratory: No Cough, No Sputum, No Wheezing, No dyspnea Gastrointestinal: + Nausea, +Vomiting, No Diarrhea, + abdominal Pain, No Hematochezia, No Melena Genitourinary: No Dysuria, No Urinary Frequency, No Hematuria Musculoskeletal: No joint pain, + Myalgias Skin: No Skin Lesions, No rash Neuro: No Weakness, No Numbness, No Dizziness, No Headache Psych: No Anxiety/Panic, No Depression Heme/Lymph: No Bruising, No Lymphadenopathy Endocrine: No Polyuria, No Polydipsia <TONA Pastrana Last Filed: 06/07/22 21:39> [facility] Social History Social History: Social History Alcohol intake: never Patient Tobacco Use Status: Never used Tobacco Use of substances other than those prescribed or required for medical reasons: Yes Advance Directives: No Advance Directives Information Provided: No Patient : No <TONA Pastrana - Last Filed: 06/07/22 21:39> Physical Exam ED Vital Signs: Vital Signs - 24 hr 06/07/22 13:11 06/07/22 19:51 06/07/22 22:00 Temperature 98.2 F 98.1 F 98.4 F Pulse Rate 91 100 92 Respiratory Rate 18 18 18 Blood Pressure 119/78 131/80 111/63 Pulse Oximetry 99 98 98 Oxygen Delivery Method Room Air Room Air BMI result Body Mass Index 38.3 <TONA Pastrana - Last Filed: 06/07/22 21:39> Vital Signs - 24 hr 06/07/22 13:11 06/07/22 19:51 06/07/22 22:00 Temperature 98.2 F 98.1 F 98.4 F Pulse Rate 91 100 92 Respiratory Rate 18 18 18 Blood Pressure 119/78 131/80 111/63 Pulse Oximetry 99 98 98 Oxygen Delivery Method Room Air Room Air BMI result Body Mass Index 38.3 <TONA Douglas - Last Filed: 06/07/22 23:48> Appearance: Alert. Oriented X3. No acute distress. Eyes: Pupils equal, round and reactive to light. ENT: Pharynx normal. Neck: Normal inspection. Neck supple. CVS: Normal heart rate and rhythm. Pulses normal. Respiratory: No respiratory distress. Breath sounds normal. Abdomen: Obese Soft with epigastric tenderness, periumbilacal tenderness, normal +BS x4. +CVA tenderness bilaterally. Skin: Skin warm and dry. Normal skin color. Normal skin turgor. No rashes. Extremities: No lower extremity edema. Neuro: Oriented X 3. No motor deficit. No sensory deficit. <TONA Pastrana - Last Filed: 06/07/22 21:39> Course Course Course Narrative: 22 yo female with history of DM2 presenting to the ER with several days of N/V and abdominal pain. She also endorses back pain and has CVA tenderness on exam, however this is bilateral and she has no urinary symptoms; may be muscular from vomiting. Central abd tenderness on exam but soft without peritoneal signs, negative Hamilton's sign. UA and Upreg preformed in triage - not , small leukocyte esterase, 0-5 WBC, no bacteria. Doubt UTI. Will get lab workup and CT scan for further evaluation. Will check POC as well, doubt DKA. IVF, anti-emetic and morphine ordered, will reassess. <TONA Pastrana - Last Filed: 06/07/22 21:39> Reevaluation(s) Reevaluation #1: WBC 14.5, most likely reactive from vomiting. CMP and CT scan pending. <TONA Pastrana Last Filed: 06/07/22 21:39> Reevaluation #2: CBC with leukocytosis likely secondary to reactivity from nausea vomiting. Chemistry with no acute findings requiring intervention. No anion gap, no electrolyte abnormalities, low suspicion for DKA. CT of the abdomen pelvis pending at this time. Patient feeling slightly better. <TONA Douglas - Last Filed: 06/07/22 23:48> Time: 21:57 <TONA Douglas - Last Filed: 06/07/22 23:48> Reevaluation #3: Patient with markedly elevated lipase consistent with acute pancreatitis. At this time patient will be admitted to the hospital for further intervention and treatment. More IV fluids ordered at this time. <TONA Douglas - Last Filed: 06/07/22 23:48> Time: 22:20 <TONA Douglas - Last Filed: 06/07/22 23:48> MDM - Abdominal Pain Lab Data Result diagrams: : 06/07/22 20:04 06/07/22 21:01 <TONA Pastrana - Last Filed: 06/07/22 21:39> Labs: Lab Results 06/07/22 06/07/22 06/07/22 Range/Units 13:24 13:24 19:53 WBC (4.8-10.8) X10*3/uL RBC (4.20-5.50) X10*6/uL Hgb (12.0-16.0) g/dl Hct (37.0-47.0) % MCV (80.0-98.0) fL MCH (27.0-33.0) pg MCHC (31.0-35.0) g/dl RDW (11.0-16.0) % Plt Count (160-400) X10*3/uL MPV (9.4-12.3) fL Immature Gran % (Auto) (0.0-0.4) % Neut % (Auto) (45-73) % Lymph % (Auto) (20-40) % [place] % (Auto) (2-11) % Eos % (Auto) (0-4) % Baso % (Auto) (0-2) % Lymph # (Auto) (1.2-4.9) X10*3/uL [place] # (Auto) (0.1-1.2) X10*3/uL Eos # (Auto) (0.0-0.4) X10*3/uL Baso # (Auto) (0.0-0.2) X10*3/uL Abs Immat Gran (auto) (0.00-0.03) X10*3/uL Absolute Neuts (auto) (2.0-8.3) x10*3/uL Absolute Nucleated RBC (0.0-0.012) X10*3/uL Nucleated RBC % (auto) (0.0-0.2) /100WBC Sodium (135-145) mmol/L Potassium (3.3-5.1) mmol/L Chloride (96-108) mmol/L Carbon Dioxide (22-29) mmol/L Anion Gap (12-20) BUN (9-16) mg/dL Creatinine (0.5-1.4) mg/dL Estim Creat Clear Calc Estimated GFR POC Glucose 208 H (60-115) mg/dL Random Glucose (60-115) mg/dL Calcium (8.4-10.2) mg/dL Magnesium (1.6-2.6) mg/dL Total Bilirubin (0.0-1.0) mg/dL Direct Bilirubin (0.0-0.5) mg/dL AST (5-31) U/L ALT (0-31) U/L Alkaline Phosphatase (39-117) U/L Total Protein (6.5-8.0) g/dL Albumin (3.5-5.0) g/dL Triglycerides mg/dL Lipase Urine Color Yellow Urine Appearance Clear Urine pH 5.5 (5.0-9.0) Ur Specific [place] 1.020 (1.005-1.025) Urine Protein Trace (Neg-Trace) mg/dL Urine Glucose (UA) Negative (Negative) mg/dL Urine Ketones Negative (Negative) mg/dL Urine Blood Negative (Negative) Urine Nitrite Negative (Negative) Ur Leukocyte Esterase Small (1+) H (Negative) Urine RBC 0-2 (0-2) /HPF Urine WBC 0-5 (0-5) /HPF Ur Squamous Epith Cells 3-5 (0-2) /HPF Urine Bacteria None Seen (None Seen) Hyaline Casts 0-2 (0-2) /LPF Urine Test NEGATIVE (NEGATIVE) 06/07/22 06/07/22 06/07/22 Range/Units 20:04 20:04 21:01 WBC 14.2 H (4.8-10.8) X10*3/uL RBC 5.22 (4.20-5.50) X10*6/uL Hgb 14.1 (12.0-16.0) g/dl Hct 42.4 (37.0-47.0) % MCV 81.2 (80.0-98.0) fL MCH 27.0 (27.0-33.0) pg MCHC 33.3 (31.0-35.0) g/dl RDW 12.6 (11.0-16.0) % Plt Count 391 (160-400) X10*3/uL MPV 10.0 (9.4-12.3) fL Immature Gran % (Auto) 0.5 H (0.0-0.4) % Neut % (Auto) 74.8 H (45-73) % Lymph % (Auto) 19.0 L (20-40) % [place] % (Auto) 4.2 (2-11) % Eos % (Auto) 1.1 (0-4) % Baso % (Auto) 0.4 (0-2) % Lymph # (Auto) 2.7 (1.2-4.9) X10*3/uL [place] # (Auto) 0.6 (0.1-1.2) X10*3/uL Eos # (Auto) 0.2 (0.0-0.4) X10*3/uL Baso # (Auto) 0.1 (0.0-0.2) X10*3/uL Abs Immat Gran (auto) 0.07 H (0.00-0.03) X10*3/uL Absolute Neuts (auto) 10.6 H (2.0-8.3) x10*3/uL Absolute Nucleated RBC 0.000 (0.0-0.012) X10*3/uL Nucleated RBC % (auto) 0.0 (0.0-0.2) /100WBC Sodium 143 (135-145) mmol/L Potassium 3.9 (3.3-5.1) mmol/L Chloride 106 (96-108) mmol/L Carbon Dioxide 26 (22-29) mmol/L Anion Gap 15 (12-20) BUN 11 (9-16) mg/dL Creatinine 0.70 (0.5-1.4) mg/dL Estim Creat Clear Calc 121.1 Estimated GFR > 60 POC Glucose (60-115) mg/dL Random Glucose 178 H (60-115) mg/dL Calcium 8.9 (8.4-10.2) mg/dL Magnesium 1.9 (1.6-2.6) mg/dL Total Bilirubin < 0.2 (0.0-1.0) mg/dL Direct Bilirubin < 0.2 (0.0-0.5) mg/dL AST 45 H (5-31) U/L ALT 49 H (0-31) U/L Alkaline Phosphatase 102 (39-117) U/L Total Protein 7.4 (6.5-8.0) g/dL Albumin 4.1 (3.5-5.0) g/dL Triglycerides 66 mg/dL Lipase Cancelled 1697 H Urine Color Urine Appearance Urine pH (5.0-9.0) Ur Specific [place] (1.005-1.025) Urine Protein (Neg-Trace) mg/dL Urine Glucose (UA) (Negative) mg/dL Urine Ketones (Negative) mg/dL Urine Blood (Negative) Urine Nitrite (Negative) Ur Leukocyte Esterase (Negative) Urine RBC (0-2) /HPF Urine WBC (0-5) /HPF Ur Squamous Epith Cells (0-2) /HPF Urine Bacteria (None Seen) Hyaline Casts (0-2) /LPF Urine Test (NEGATIVE) <TONA Pastrana - Last Filed: 06/07/22 21:39> Lab Results 06/07/22 06/07/22 06/07/22 Range/Units 13:24 13:24 19:53 WBC (4.8-10.8) X10*3/uL RBC (4.20-5.50) X10*6/uL Hgb (12.0-16.0) g/dl Hct (37.0-47.0) % MCV (80.0-98.0) fL MCH (27.0-33.0) pg MCHC (31.0-35.0) g/dl RDW (11.0-16.0) % Plt Count (160-400) X10*3/uL MPV (9.4-12.3) fL Immature Gran % (Auto) (0.0-0.4) % Neut % (Auto) (45-73) % Lymph % (Auto) (20-40) % [place] % (Auto) (2-11) % Eos % (Auto) (0-4) % Baso % (Auto) (0-2) % Lymph # (Auto) (1.2-4.9) X10*3/uL [place] # (Auto) (0.1-1.2) X10*3/uL Eos # (Auto) (0.0-0.4) X10*3/uL Baso # (Auto) (0.0-0.2) X10*3/uL Abs Immat Gran (auto) (0.00-0.03) X10*3/uL Absolute Neuts (auto) (2.0-8.3) x10*3/uL Absolute Nucleated RBC (0.0-0.012) X10*3/uL Nucleated RBC % (auto) (0.0-0.2) /100WBC Sodium (135-145) mmol/L Potassium (3.3-5.1) mmol/L Chloride (96-108) mmol/L Carbon Dioxide (22-29) mmol/L Anion Gap (12-20) BUN (9-16) mg/dL Creatinine (0.5-1.4) mg/dL Estim Creat Clear Calc Estimated GFR POC Glucose 208 H (60-115) mg/dL Random Glucose (60-115) mg/dL Calcium (8.4-10.2) mg/dL Magnesium (1.6-2.6) mg/dL Total Bilirubin (0.0-1.0) mg/dL Direct Bilirubin (0.0-0.5) mg/dL AST (5-31) U/L ALT (0-31) U/L Alkaline Phosphatase (39-117) U/L Total Protein (6.5-8.0) g/dL Albumin (3.5-5.0) g/dL Triglycerides mg/dL Lipase Urine Color Yellow Urine Appearance Clear Urine pH 5.5 (5.0-9.0) Ur Specific [place] 1.020 (1.005-1.025) Urine Protein Trace (Neg-Trace) mg/dL Urine Glucose (UA) Negative (Negative) mg/dL Urine Ketones Negative (Negative) mg/dL Urine Blood Negative (Negative) Urine Nitrite Negative (Negative) Ur Leukocyte Esterase Small (1+) H (Negative) Urine RBC 0-2 (0-2) /HPF Urine WBC 0-5 (0-5) /HPF Ur Squamous Epith Cells 3-5 (0-2) /HPF Urine Bacteria None Seen (None Seen) Hyaline Casts 0-2 (0-2) /LPF Urine Test NEGATIVE (NEGATIVE) 06/07/22 06/07/22 06/07/22 Range/Units 20:04 20:04 21:01 WBC 14.2 H (4.8-10.8) X10*3/uL RBC 5.22 (4.20-5.50) X10*6/uL Hgb 14.1 (12.0-16.0) g/dl Hct 42.4 (37.0-47.0) % MCV 81.2 (80.0-98.0) fL MCH 27.0 (27.0-33.0) pg MCHC 33.3 (31.0-35.0) g/dl RDW 12.6 (11.0-16.0) % Plt Count 391 (160-400) X10*3/uL MPV 10.0 (9.4-12.3) fL Immature Gran % (Auto) 0.5 H (0.0-0.4) % Neut % (Auto) 74.8 H (45-73) % Lymph % (Auto) 19.0 L (20-40) % [place] % (Auto) 4.2 (2-11) % Eos % (Auto) 1.1 (0-4) % Baso % (Auto) 0.4 (0-2) % Lymph # (Auto) 2.7 (1.2-4.9) X10*3/uL [place] # (Auto) 0.6 (0.1-1.2) X10*3/uL Eos # (Auto) 0.2 (0.0-0.4) X10*3/uL Baso # (Auto) 0.1 (0.0-0.2) X10*3/uL Abs Immat Gran (auto) 0.07 H (0.00-0.03) X10*3/uL Absolute Neuts (auto) 10.6 H (2.0-8.3) x10*3/uL Absolute Nucleated RBC 0.000 (0.0-0.012) X10*3/uL Nucleated RBC % (auto) 0.0 (0.0-0.2) /100WBC Sodium 143 (135-145) mmol/L Potassium 3.9 (3.3-5.1) mmol/L Chloride 106 (96-108) mmol/L Carbon Dioxide 26 (22-29) mmol/L Anion Gap 15 (12-20) BUN 11 (9-16) mg/dL Creatinine 0.70 (0.5-1.4) mg/dL Estim Creat Clear Calc 121.1 Estimated GFR > 60 POC Glucose (60-115) mg/dL Random Glucose 178 H (60-115) mg/dL Calcium 8.9 (8.4-10.2) mg/dL Magnesium 1.9 (1.6-2.6) mg/dL Total Bilirubin < 0.2 (0.0-1.0) mg/dL Direct Bilirubin < 0.2 (0.0-0.5) mg/dL AST 45 H (5-31) U/L ALT 49 H (0-31) U/L Alkaline Phosphatase 102 (39-117) U/L Total Protein 7.4 (6.5-8.0) g/dL Albumin 4.1 (3.5-5.0) g/dL Triglycerides 66 mg/dL Lipase Cancelled 1697 H Urine Color Urine Appearance Urine pH (5.0-9.0) Ur Specific [place] (1.005-1.025) Urine Protein (Neg-Trace) mg/dL Urine Glucose (UA) (Negative) mg/dL Urine Ketones (Negative) mg/dL Urine Blood (Negative) Urine Nitrite (Negative) Ur Leukocyte Esterase (Negative) Urine RBC (0-2) /HPF Urine WBC (0-5) /HPF Ur Squamous Epith Cells (0-2) /HPF Urine Bacteria (None Seen) Hyaline Casts (0-2) /LPF Urine Test (NEGATIVE) <TONA Douglas - Last Filed: 06/07/22 23:48> Discharge Plan Discharge Clinical Impression: Vomiting, Abdominal pain, Acute pancreatitis <TONA Pastrana - Last Filed: 06/07/22 21:39> Patient Disposition: Admitted As Inpatient <TONA Pastrana - Last Filed: 06/07/22 21:39> Additional Instructions: Take your medications as prescribed. If you were prescribed antibiotics today, it is important that you take your medication to their entirety, do not skip any doses, do not finish them early. Follow-up with your primary care provider this week. Return to the emergency department with new or worsening symptoms. Such as fevers, chills, chest pain, shortness of breath, nausea, vomiting, dizziness, headache, vision changes, lethargy In case of emergency call 911 <TONA Pastrana - Last Filed: 06/07/22 21:39>
[2022-06-07 19:51] VITALS: BP 131/80; PULSE 100; RESP 18; TEMP 36.7; O2SAT 98
[2022-06-07] MEDS: 0.9 % Sodium Chloride 1,000 ML 999 ML IVCONT (20:09)
[2022-06-07 20:14] LABS: MANUAL DIFF FLAG NO
[2022-06-07 20:17] LABS: Glucose, Whole Blood 208 mg/dL (60-115)
[2022-06-07 20:17] LABS: Basophils Absolute Auto 0.1 X10*3/uL (0.0-0.2); Basophils Percent Auto 0.4 % (0-2); Eosinophils Absolute Auto 0.2 X10*3/uL (0.0-0.4); Eosinophils Percent Auto 1.1 % (0-4); Hematocrit 42.4 % (37.0-47.0); Hemoglobin 14.1 g/dl (12.0-16.0); Imm Gran Abs Auto 0.07 X10*3/uL (0.00-0.03); Imm Gran Pct Auto 0.5 % (0.0-0.4); Lymphocytes Absolute Auto 2.7 X10*3/uL (1.2-4.9); Mean Corpuscular HGB Conc 33.3 g/dl (31.0-35.0); Mean Corpuscular Volume 81.2 fL (80.0-98.0); Monocytes Absolute Auto 0.6 X10*3/uL (0.1-1.2); Monocytes Percent Auto 4.2 % (2-11); Neutrophils Absolute Auto 10.6 x10*3/uL (2.0-8.3); Neutrophils Percent Auto 74.8 % (45-73); Platelet Count 391 X10*3/uL (160-400); Red Blood Count 5.22 X10*6/uL (4.20-5.50); Red Cell Distribution Width 12.6 % (11.0-16.0); White Blood Count 14.2 X10*3/uL (4.8-10.8)
[2022-06-07] MEDS: ondansetron HCL 4 MG/2 ML VIAL IVPUSH (20:29)
[2022-06-07] MEDS: Morphine Sulfate 4 MG/ML CARTRIDGE IVPUSH (20:29)
[2022-06-07 21:34] LABS: Alanine Aminotransferase 49 U/L (0-31); Albumin Level 4.1 g/dL (3.5-5.0); Alkaline Phosphatase 102 U/L (39-117); Anion Gap 15 (12-20); Aspartate Amino Transferase 45 U/L (5-31); Bilirubin Direct < 0.2 mg/dL (0.0-0.5); Bilirubin Total < 0.2 mg/dL (0.0-1.0); Blood Urea Nitrogen 11 mg/dL (9-16); Calcium 8.9 mg/dL (8.4-10.2); Carbon Dioxide 26 mmol/L (22-29); Chloride 106 mmol/L (96-108); Creatinine Clr Calc Pharmacy 121.1; Estimated Glomerular Filt Rate > 60; Glucose Random 178 mg/dL (60-115); Magnesium 1.9 mg/dL (1.6-2.6); Potassium 3.9 mmol/L (3.3-5.1); Sodium 143 mmol/L (135-145); Total Protein 7.4 g/dL (6.5-8.0)
[2022-06-07] MEDS: iohexoL 350 MG/ML 100 ML INFUS..BTL IV (21:55)
[2022-06-07 22:00] VITALS: BP 111/63; PULSE 92; RESP 18; TEMP 36.9; O2SAT 98
[2022-06-07 22:11] LABS: Lipase 1697 U/L (8-78)
[2022-06-07 23:20] LABS: Triglycerides 66 mg/dL
--- NOTE | 2022-06-07 23:52 | PM.IMHP ---
History of Present Illness Date of Service: 06/07/22 Chief Complaint: abd pain 22-year-old female with past medical history of diabetes, asthma presents from home with complaints of nausea vomiting and abdominal pain patient describes the pain as epigastric, radiating to the right upper quadrant as well as to the back, associated with episodes of nausea vomiting, no diarrhea. No fever or chills. No previous similar episode. Denies any alcohol use. Reports no headache or change in vision, no chest pain, no shortness of breath, no urinary symptoms and no lower extremity edema On arrival to the ED patient hemodynamically stable Labs are significant for WBC count of 14.2, lipase of 1697, UA positive for leukocyte Estrace and some WBC, Abdomen pelvic CT showed no significant abnormality Review of Systems Review of Systems: Yes all other systems are reviewed and are negative [facility] Medical History (Updated 06/08/22 @ 06:48 by Carolina Sifuentes MD) Asthma Diabetes Family History (Updated 06/08/22 @ 06:48 by Carolina Sifuentes MD) Mother Diabetes Hypertension Surgical History (Updated 06/08/22 @ 06:48 by Carolina Sifuentes MD) No pertinent past surgical history Social History Alcohol intake: never Patient Tobacco Use Status: Never used Tobacco Use of substances other than those prescribed or required for medical reasons: Yes Advance Directives: No Advance Directives Information Provided: No Patient : No Meds Allergies Allergy/AdvReac Type Severity Reaction Status Date / Time No Known Allergies Allergy Unverified 05/18/20 18:43 [No Known Allergies*] Active Medications: Current Medications Pharmacy Consult (Consult Rx Perform Med Rec) 1 each MISCELLANE ONCE PRN PRN Reason: Consult order Physical Exam Vital Signs and Narrative: Vital Signs: Last Vital Signs Temp 98.4 F 06/07/22 22:00 Pulse 92 06/07/22 22:00 Resp 18 06/07/22 22:00 BP 111/63 06/07/22 22:00 Pulse Ox 98 06/07/22 22:00 O2 Del Method 06/07/22 19:51 BMI result Body Mass Index 38.3 Const: General: cooperative and no acute distress Orientation/consciousness: patient oriented x3 Eyes: General: appearance normal, both eyes and all related structures Resp: Effort & Inspection: normal respiratory effort Auscultation: clear to auscultation bilaterally Cardio: Rate: regular rate Rhythm: regular rhythm GI: Other: Tender in the epigastric region, no rebound or guarding Palpation (GI): Soft to palpation Auscultation: normal bowel sounds Skin: General skin exam: no rashes or lesions noted Neuro: General: patient oriented x3 Cognition (Neuro): normal cognition Extrem: General: Yes normal to inspection and Yes no pedal edema Results Labs CBC and Chem 7: 06/07/22 20:04 06/07/22 21:01 Labs: Laboratory Results - last 24 hr 06/07/22 06/07/22 06/07/22 13:24 13:24 19:53 MCV MCH MCHC RDW Plt Count MPV Immature Gran % (Auto) Neut % (Auto) Lymph % (Auto) [place] % (Auto) Eos % (Auto) Baso % (Auto) Lymph # (Auto) [place] # (Auto) Eos # (Auto) Baso # (Auto) Abs Immat Gran (auto) Absolute Neuts (auto) Absolute Nucleated RBC Nucleated RBC % (auto) Anion Gap Estim Creat Clear Calc Estimated GFR POC Glucose 208 H Random Glucose Calcium Magnesium Total Bilirubin Direct Bilirubin AST ALT Alkaline Phosphatase Total Protein Albumin Triglycerides Lipase Urine Color Yellow Urine Appearance Clear Urine pH 5.5 Ur Specific [place] 1.020 Urine Protein Trace Urine Glucose (UA) Negative Urine Ketones Negative Urine Blood Negative Urine Nitrite Negative Ur Leukocyte Esterase Small (1+) H Urine RBC 0-2 Urine WBC 0-5 Ur Squamous Epith Cells 3-5 Urine Bacteria None Seen Hyaline Casts 0-2 Urine Test NEGATIVE 06/07/22 06/07/22 06/07/22 20:04 20:04 21:01 MCV 81.2 MCH 27.0 MCHC 33.3 RDW 12.6 Plt Count 391 MPV 10.0 Immature Gran % (Auto) 0.5 H Neut % (Auto) 74.8 H Lymph % (Auto) 19.0 L [place] % (Auto) 4.2 Eos % (Auto) 1.1 Baso % (Auto) 0.4 Lymph # (Auto) 2.7 [place] # (Auto) 0.6 Eos # (Auto) 0.2 Baso # (Auto) 0.1 Abs Immat Gran (auto) 0.07 H Absolute Neuts (auto) 10.6 H Absolute Nucleated RBC 0.000 Nucleated RBC % (auto) 0.0 Anion Gap 15 Estim Creat Clear Calc 121.1 Estimated GFR > 60 POC Glucose Random Glucose 178 H Calcium 8.9 Magnesium 1.9 Total Bilirubin < 0.2 Direct Bilirubin < 0.2 AST 45 H ALT 49 H Alkaline Phosphatase 102 Total Protein 7.4 Albumin 4.1 Triglycerides 66 Lipase Cancelled 1697 H Urine Color Urine Appearance Urine pH Ur Specific [place] Urine Protein Urine Glucose (UA) Urine Ketones Urine Blood Urine Nitrite Ur Leukocyte Esterase Urine RBC Urine WBC Ur Squamous Epith Cells Urine Bacteria Hyaline Casts Urine Test Imaging Radiologist's Impressions: Impressions Abdomen/Pelvis CT 06/07/22 22:02 IMPRESSION: No significant abnormality. Fleischner guidelines were followed. Assessment and Plan (1) Acute pancreatitis: Status: Acute Plan 22-year-old female with past medical history of diabetes/asthma presents to the hospital with complaints of abdominal pain found to have acute pancreatitis # acute pancreatitis - has elevated lipase with characteristic epigastric abdominal pain - unclear etiology at this time, patient denies any alcohol abuse, triglycerides normal - will obtain right upper quadrant ultrasound - CT abdomen negative - Will keep NPO - aggressive IV fluids - pain control # asthma - not in exacerbation # diabetes - low-dose sliding scale insulin - diabetic diet DVT prophylaxis Lovenox Pt will require a minimum 2 night hospital stay for IV fluids, management of acute pancreatitis requiring admission Quality Stroke Does the patient have a stroke diagnosis?: No VTE Prior VTE?: No VTE Risk Level:: Medical - moderate - high VTE Device Contraindication: Treatment Not Indicated VTE Drug Contraindication: N/A - Med Ordered
[2022-06-08] VITALS (7 sets, daily range): BP systolic 103–126; BP diastolic 57–87; PULSE 86–97; RESP 14–18; TEMP 36.2–36.9; O2SAT 95–99
[2022-06-08] MEDS: 0.9 % Sodium Chloride 1,000 ML 999 ML IV (00:15)
[2022-06-08] MEDS: Lactated Ringers 1,000 ML 100 ML IVCONT (01:21)
[2022-06-08 03:37] LABS: COVID-19 Test Negative (Negative)
[2022-06-08 07:13] LABS: Basophils Percent Auto 0.2 % (0-2); Eosinophils Absolute Auto 0.2 X10*3/uL (0.0-0.4); Eosinophils Percent Auto 1.1 % (0-4); Hematocrit 37.7 % (37.0-47.0); Hemoglobin 12.2 g/dl (12.0-16.0); Imm Gran Pct Auto 0.6 % (0.0-0.4); Lymphocytes Absolute Auto 3.9 X10*3/uL (1.2-4.9); Lymphocytes Percent Auto 24.4 % (20-40); MANUAL DIFF FLAG SCAN; Mean Corpuscular HGB Conc 32.4 g/dl (31.0-35.0); Mean Corpuscular Hemoglobin 26.8 pg (27.0-33.0); Mean Corpuscular Volume 82.7 fL (80.0-98.0); Monocytes Absolute Auto 0.8 X10*3/uL (0.1-1.2); Monocytes Percent Auto 4.8 % (2-11); Neutrophils Percent Auto 68.9 % (45-73); PLT CLUMP 1; Red Blood Count 4.56 X10*6/uL (4.20-5.50); Red Cell Distribution Width 12.6 % (11.0-16.0); SCAN SMEAR FLAG 1
[2022-06-08 07:24] LABS: Anion Gap 16 (12-20); Blood Urea Nitrogen 10 mg/dL (9-16); Calcium 8.5 mg/dL (8.4-10.2); Carbon Dioxide 21 mmol/L (22-29); Chloride 109 mmol/L (96-108); Creatinine Clr Calc Pharmacy 130.5; Estimated Glomerular Filt Rate > 60; Glucose Random 115 mg/dL (60-115); Potassium 4.5 mmol/L (3.3-5.1); Sodium 141 mmol/L (135-145)
[2022-06-08 07:30] LABS: Glucose, Whole Blood 105 mg/dL (60-115)
[2022-06-08 08:29] LABS: SLIDE REVIEW VERIFIED
--- NOTE | 2022-06-08 10:50 | MHC.CM.PN ---
Patient lives with her Mother/Caregiver/Kika. Home is the goal; patient required no services nor DME [employer]. Patient received [employer] [employer] [facility] and PCP is from [facility].
[2022-06-08] MEDS: Lactated Ringers 1,000 ML 200 ML IVCONT (11:51)
--- NOTE | 2022-06-08 11:55 | PHA.MEDREC ---
Pharmacy Consult ? Medication Reconciliation Pharmacy has completed the medication reconciliation. SPOKE WITH PT AND HER MOM
[2022-06-08 12:06] LABS: Alanine Aminotransferase 34 U/L (0-31); Albumin Level 3.7 g/dL (3.5-5.0); Alkaline Phosphatase 98 U/L (39-117); Aspartate Amino Transferase 31 U/L (5-31); Bilirubin Direct < 0.2 mg/dL (0.0-0.5); Bilirubin Total 0.3 mg/dL (0.0-1.0); Lipase 569 U/L (8-78); Total Protein 6.7 g/dL (6.5-8.0)
--- NOTE | 2022-06-08 14:04 | HO.PM.IMPN ---
Subjective Subjective Date of Service: 06/08/22 Interval History: Possible viral gastroenteritis, mild pancreatitis Review of Systems Says abdominal problems seems to be improvin Mild nausea but no vomiting or any urinary c/o No urinary complaints. Physical Exam Vital Signs: Vital Signs: Last Vital Signs Temp 97.1 F 06/08/22 12:29 Pulse 91 06/08/22 12:29 Resp 14 06/08/22 12:29 BP 117/65 06/08/22 12:29 Pulse Ox 98 06/08/22 12:29 O2 Del Method 06/08/22 12:29 BMI result Body Mass Index 38.3 Appearance: Alert.? Oriented X3.? not in distress.? cvs: [id number], [id number] , no murmur res: clear to auscultation ,no rhonchii or wheezing abd: no rebound or guarding ,nt, bs present. ext pulses present , no cyanosis . neuro: axo3 , nonfocal. Objective Data Active Medications Acetaminophen (Acetaminophen 325 Mg Tablet) 650 mg PO Q6H PRN PRN Reason: Pain, Mild (Pain Scale 1-3) Dextrose (Dextrose 50 % 25 Gm/50 Ml Syringe) 25 gm IVPUSH Q15M PRN; Protocol PRN Reason: per Hypoglycemia Standing Ord. Docusate Sodium (Docusate Sodium 100 Mg Capsule) 100 mg PO DAILY PRN PRN Reason: Constipation Enoxaparin Sodium (Enoxaparin Sodium 40 Mg/0.4 Ml Syringe) 40 mg SUBCUT Q24H [facility] Last Admin: 06/08/22 01:23 Dose: Not Given Documented By: ADEEL Non-Admin Reason: Med Not Available Glucose (Glucose Gel 15 Gm Gel..Gram.) 15 gm PO Q15M PRN; Protocol PRN Reason: per Hypoglycemia Standing Ord. Lactated Ringer's (Lr) 1,000 mls @ 200 mls/hr IVCONT .Q5H [facility] Last Admin: 06/08/22 11:51 Dose: 200 mls/hr Documented By: KARTHIK Insulin Human Lispro (Insulin Lispro 100 Unit/Ml 3 Ml Vial) 0 unit SUBCUT QIDACHS [facility]; Protocol Last Admin: 06/08/22 11:38 Dose: Not Given Documented By: KARTHIK Non-Admin Reason: No Insulin Coverage Morphine Sulfate (Morphine Sulfate 4 Mg/Ml Cartridge) 4 mg IVPUSH Q4H PRN; Protocol PRN Reason: Pain, Severe (Pain Scale 7-10) Ondansetron HCl (Ondansetron Hcl 4 Mg/2 Ml Vial) 4 mg IVPUSH Q8H PRN PRN Reason: Nausea and Vomiting Pharmacy Consult (Consult Rx Perform Med Rec) 1 each MISCELLANE ONCE PRN PRN Reason: Consult order Sodium Chloride (0.9 % Sodium Chloride Flush 3 Ml Syringe) 3 ml IVFLUSH QSHIFT [facility] Last Admin: 06/08/22 07:59 Dose: Not Given Documented By: JONAS Non-Admin Reason: IV Running Labs CBC & Chem 7: 06/08/22 06:50 06/08/22 06:50 Labs: Laboratory Results - last 24 hr 06/07/22 06/07/22 06/07/22 13:24 13:24 19:53 MCV MCH MCHC RDW Plt Count MPV Immature Gran % (Auto) Neut % (Auto) Lymph % (Auto) [place] % (Auto) Eos % (Auto) Baso % (Auto) Lymph # (Auto) [place] # (Auto) Eos # (Auto) Baso # (Auto) Abs Immat Gran (auto) Absolute Neuts (auto) Absolute Nucleated RBC Nucleated RBC % (auto) Smear Tech's Comments Anion Gap Estim Creat Clear Calc Estimated GFR POC Glucose 208 H Random Glucose Calcium Magnesium Total Bilirubin Direct Bilirubin AST ALT Alkaline Phosphatase Total Protein Albumin Triglycerides Lipase Urine Color Yellow Urine Appearance Clear Urine pH 5.5 Ur Specific [place] 1.020 Urine Protein Trace Urine Glucose (UA) Negative Urine Ketones Negative Urine Blood Negative Urine Nitrite Negative Ur Leukocyte Esterase Small (1+) H Urine RBC 0-2 Urine WBC 0-5 Ur Squamous Epith Cells 3-5 Urine Bacteria None Seen Hyaline Casts 0-2 Urine Test NEGATIVE COVID-19 ([facility]) COVID-19 Clin Com 06/07/22 06/07/22 06/07/22 20:04 20:04 21:01 MCV 81.2 MCH 27.0 MCHC 33.3 RDW 12.6 Plt Count 391 MPV 10.0 Immature Gran % (Auto) 0.5 H Neut % (Auto) 74.8 H Lymph % (Auto) 19.0 L [place] % (Auto) 4.2 Eos % (Auto) 1.1 Baso % (Auto) 0.4 Lymph # (Auto) 2.7 [place] # (Auto) 0.6 Eos # (Auto) 0.2 Baso # (Auto) 0.1 Abs Immat Gran (auto) 0.07 H Absolute Neuts (auto) 10.6 H Absolute Nucleated RBC 0.000 Nucleated RBC % (auto) 0.0 Smear Tech's Comments Anion Gap 15 Estim Creat Clear Calc 121.1 Estimated GFR > 60 POC Glucose Random Glucose 178 H Calcium 8.9 Magnesium 1.9 Total Bilirubin < 0.2 Direct Bilirubin < 0.2 AST 45 H ALT 49 H Alkaline Phosphatase 102 Total Protein 7.4 Albumin 4.1 Triglycerides 66 Lipase Cancelled 1697 H Urine Color Urine Appearance Urine pH Ur Specific [place] Urine Protein Urine Glucose (UA) Urine Ketones Urine Blood Urine Nitrite Ur Leukocyte Esterase Urine RBC Urine WBC Ur Squamous Epith Cells Urine Bacteria Hyaline Casts Urine Test COVID-19 ([facility]) COVID-[employer] 06/08/22 06/08/22 06/08/22 03:16 06:50 06:50 MCV 82.7 MCH 26.8 L MCHC 32.4 RDW 12.6 Plt Count TNP MPV Not Reportable Immature Gran % (Auto) 0.6 H Neut % (Auto) 68.9 Lymph % (Auto) 24.4 [place] % (Auto) 4.8 Eos % (Auto) 1.1 Baso % (Auto) 0.2 Lymph # (Auto) 3.9 [place] # (Auto) 0.8 Eos # (Auto) 0.2 Baso # (Auto) 0.0 Abs Immat Gran (auto) 0.10 H Absolute Neuts (auto) 11.0 H Absolute Nucleated RBC 0.000 Nucleated RBC % (auto) 0.0 Smear Tech's Comments VERIFIED Anion Gap 16 Estim Creat Clear Calc 130.5 Estimated GFR > 60 POC Glucose Random Glucose 115 Calcium 8.5 Magnesium Total Bilirubin 0.3 Direct Bilirubin < 0.2 AST 31 ALT 34 H Alkaline Phosphatase 98 Total Protein 6.7 Albumin 3.7 Triglycerides Lipase 569 H Urine Color Urine Appearance Urine pH Ur Specific [place] Urine Protein Urine Glucose (UA) Urine Ketones Urine Blood Urine Nitrite Ur Leukocyte Esterase Urine RBC Urine WBC Ur Squamous Epith Cells Urine Bacteria Hyaline Casts Urine Test COVID-19 ([facility]) Negative COVID-19 Clin Com See Note 06/08/22 06/08/22 07:07 11:24 MCV MCH MCHC RDW Plt Count MPV Immature Gran % (Auto) Neut % (Auto) Lymph % (Auto) [place] % (Auto) Eos % (Auto) Baso % (Auto) Lymph # (Auto) [place] # (Auto) Eos # (Auto) Baso # (Auto) Abs Immat Gran (auto) Absolute Neuts (auto) Absolute Nucleated RBC Nucleated RBC % (auto) Smear Tech's Comments Anion Gap Estim Creat Clear Calc Estimated GFR POC Glucose 105 95 Random Glucose Calcium Magnesium Total Bilirubin Direct Bilirubin AST ALT Alkaline Phosphatase Total Protein Albumin Triglycerides Lipase Urine Color Urine Appearance Urine pH Ur Specific [place] Urine Protein Urine Glucose (UA) Urine Ketones Urine Blood Urine Nitrite Ur Leukocyte Esterase Urine RBC Urine WBC Ur Squamous Epith Cells Urine Bacteria Hyaline Casts Urine Test COVID-19 ([facility]) COVID-19 Clin Com Microbiology Microbiology Results: Microbiology 06/07/22 14:42 Urine Culture - Final Urine clean catch - Urine de santiago top Assessment and Plan (1) Vomiting: Status: Acute (2) Abdominal pain: Status: Acute (3) Acute pancreatitis: Status: Acute (4) Viral gastroenteritis: Status: Acute Plan 2-year-old female with past medical history of diabetes/asthma presents to the hospital with complaints of abdominal pain found to have acute pancreatitis # acute pancreatitis vs viral gastroenteritis - has elevated lipase with characteristic epigastric abdominal pain - unclear etiology at this time, patient denies any alcohol abuse, triglycerides normal leucocytosis sec to above. - CT abdomen negative and right upper quadrant ultrasound-seems fine except Cholelithiasis lft's also improving to baseline continue IV fluids, pain control # asthma - not in exacerbation # diabetes - low-dose sliding scale insulin - diabetic diet DVT prophylaxis Lovenox inaptient need : acute pancreatitis vs viral gastroenteritis-on iv hydration/pain management Quality Stroke Does the patient have a stroke diagnosis?: No VTE Prior VTE?: No VTE Risk Level:: Medical - moderate - high VTE Device Contraindication: Treatment Not Indicated VTE Drug Contraindication: N/A - Med Ordered
[2022-06-08] MEDS: Insulin Lispro 100 UNIT/ML 3 ML VIAL SUBCUT (16:43)
[2022-06-09] MEDS: Enoxaparin Sodium 40 MG/0.4 ML SYRINGE SUBCUT (00:04)
[2022-06-09] MEDS: Lactated Ringers 1,000 ML 200 ML IVCONT ×3 (00:06→09:21)
[2022-06-09] MEDS: 0.9 % Sodium Chloride Flush 3 ML SYRINGE IVFLUSH (00:07)
[2022-06-09 03:58] VITALS: BP 117/61; PULSE 91; RESP 16; TEMP 36.4; O2SAT 98
[2022-06-09 08:00] VITALS: BP 135/67; PULSE 88; RESP 17; TEMP 36.3; O2SAT 95
--- NOTE | 2022-06-09 10:35 | PM.DS ---
DS: Providers Provider Date of Service: 06/09/22 Date of admission: 06/07/22 23:50 Primary care physician: Unknown Physician Attending physician on discharge: Michele Casanova DS: Diagnosis Discharge Diagnosis (1) Vomiting: Status: Acute (2) Abdominal pain: Status: Acute (3) Acute pancreatitis: Status: Acute (4) Viral gastroenteritis: Status: Acute (5) UTI (urinary tract infection): Status: Acute DS: Summary Hospital Course Hospital Course: 22-year-old female with past medical history of diabetes, asthma presents from home with complaints of nausea vomiting and abdominal pain patient describes the pain as epigastric, radiating to the right upper quadrant as well as to the back, associated with episodes of nausea vomiting, no diarrhea.? No fever or chills.? No previous similar episode.? Denies any alcohol use.? Reports no headache or change in vision, no chest pain, no shortness of breath, no urinary symptoms and no lower extremity edema On arrival to the ED patient hemodynamically stable Labs are significant for WBC count of 14.2, lipase of 1697, UA positive for leukocyte Estrace and some WBC, Abdomen pelvic CT showed no significant abnormality. Hospital course: Patient was admitted because of abdominal pain found to have elevated lipase: Possible viral gastroenteritis versus mild pancreatitis etiology unclear. Her LFTs are improving. leucocytosis possible reactive to viral gastroenteritis and also possible mild pancreatitis Patient improved with the supportive care IV hydration, pain management and tolerating diet well. Monitor BMP and LFT outpatient with PCP and consider outpatient GI evaluation for mild elevation in LFTs as well as mild pancreatitis episode-for further workup and management. Patient express concern of foul-smelling urine and the urine cultures are pending: We will give benefit of doubt and treat UTI. Please complete the course of antibiotics. Cholelithiasis: Seen by surgery patient is to follow up outpatient with surgery. plan: as above. Please complete the course of antibiotic. Monitor BMP and LFT out patiently. Consider outpatient GI evaluation as per PCP. Time Spent with Patient Time attestation: Total time spent providing and/or coordinating discharge services: Discharge coordination time: Greater than 30 minutes Quality: Safe Use of Opioids Does Pt have an Active Cancer Diagnosis on the Problem List?: No Quality: Stroke Does the patient have a stroke diagnosis?: No Physical Exam Vital Signs: Vital Signs: Last Vital Signs Temp 97.3 F 06/09/22 08:00 Pulse 88 06/09/22 08:00 Resp 17 06/09/22 08:00 BP 135/67 06/09/22 08:00 Pulse Ox 95 06/09/22 08:00 O2 Del Method 06/09/22 08:00 BMI result Body Mass Index 38.3 Appearance: Alert.? Oriented X3.? not in distress.? cvs: [id number], [id number] , no murmur res: clear to auscultation ,no rhonchii or wheezing abd: no rebound or guarding ,nt, bs present. ext pulses present , no cyanosis . neuro: axo3 , nonfocal. DS: Data Data Completed and Pending Labs on day of discharge: Laboratory Results - last 24 hr 06/08/22 06/08/22 06/08/22 06:50 11:24 16:01 POC Glucose 95 169 H Total Bilirubin 0.3 Direct Bilirubin < 0.2 AST 31 ALT 34 H Alkaline Phosphatase 98 Total Protein 6.7 Albumin 3.7 Lipase 569 H 06/08/22 06/09/22 20:14 07:55 POC Glucose 141 H 101 Total Bilirubin Direct Bilirubin AST ALT Alkaline Phosphatase Total Protein Albumin Lipase Discharge Plan Discharge Anticipated Discharge Date/Time: 06/08/22 14:00 Patient Disposition: Home, Self-Care Discharge Diagnosis: possible viral gastroenteritis and mild pancreatitis,uti Referrals: Physician,Unknown J [Primary Care Provider] - 2 days Discharge Medications: New ondansetron 4 mg tablet,disintegrating 4 mg PO Q6H PRN (Reason: nausea and vomiting) Qty: 14 0RF cefuroxime axetil 250 mg tablet 250 mg PO Q12H Qty: 10 0RF Continued metformin 500 mg tablet extended release 24 hr 2 tab PO BID insulin degludec [Tresiba FlexTouch U-100] 100 unit/mL (3 mL) insulin pen 50 unit subcut DAILY@1900 Ozempic 0.25 mg or 0.5 mg(2 mg/1.5 mL) pen injector 0.25 mg subcut WE@0900 Discharge Orders: Discharge Order (Routine); Ordered 06/09/22 Ordered By: Michele Casanova Diet: Low fat, low cholesterol Activity on Discharge: As tolerated Stand Alone Forms: Patient Portal Discharge page Activity Restrictions/Additional Instructions: Take your medications as prescribed. If you were prescribed antibiotics today, it is important that you take your medication to their entirety, do not skip any doses, do not finish them early. Follow-up with your primary care provider this week. Return to the emergency department with new or worsening symptoms. Such as fevers, chills, chest pain, shortness of breath, nausea, vomiting, dizziness, headache, vision changes, lethargy In case of emergency call 911 Care Plan Goals: Patient was admitted because of abdominal pain found to have elevated lipase: Possible viral gastroenteritis versus mild pancreatitis etiology unclear. Her LFTs are improving. Patient improved with the supportive care IV hydration, pain management and tolerating diet well. abd ultrasound shows Cholelithiasis without evidence of acute cholecystitis. Seen by surgery patient is to follow up outpatient with surgery. Monitor BMP and LFT outpatient with PCP and consider outpatient GI evaluation for mild elevation in LFTs as well as mild pancreatitis episode-for further workup and management. Health Concerns: as above. Monitor BMP and LFT out patiently. Consider outpatient GI evaluation as per PCP. Plan of Treatment: as above. Assessment: as above. Patient Instructions: Acute Nausea and Vomiting (ED), Abdominal Pain (ED)
--- NOTE | 2022-06-09 10:53 | PM.CNGS ---
History of Present Illness Consult details Consult date: 06/09/22 Reason for consult: abdominal pain Narrative: The patient is a 22-year-old woman who was admitted to the hospitalist service with abdominal pain and vomiting and, in workup, noted to have elevated lipase, no evidence of pancreatitis on CT but gallstones. The patient clinically improved and was being set up for discharge and I was asked to evaluate her to be sure a follow-up plan was in place regarding possible gallstone pancreatitis vs viral illness. The patient had resolution of her pain, her diet was advanced and she is being discharged, however discussion of possible gallstone pancreatitis was warranted. Hospital office support assistant was obtained to translate for the mother who is Urdu-speaking only. Patient's mother endorses that her daughter is disabled and she is the [facility]. The patient's mom reports that the patient has been experiencing indigestion and vague abdominal pains from unclear etiology since April. There has been no prior episodes of pain the severe vomiting or history of known gallstones or pancreatitis. The patient's mother also notes issues regarding her daughter's urine and it is odor. The mother's concerns were discussed by Dr. Casanova. Review of Systems Review of Systems: Yes all other systems are reviewed and are negative Constitutional: Constitutional: Reports as per [facility] Past Medical History Medical History (Updated 06/09/22 @ 10:55 by Yaya Montejo MD) Asthma Diabetes Family History Family History Mother Diabetes Hypertension Surgical History Surgical History No pertinent past surgical history Social History Social History Household Members: Family Housing: Apartment Do you presently have visiting nurse or other home services: No Alcohol intake: never Patient Tobacco Use Status: Never used Tobacco service: No Current occupational status: unemployed Meds Allergies Allergy/AdvReac Type Severity Reaction Status Date / Time No Known Allergies Allergy Unverified 05/18/20 18:43 [No Known Allergies*] Active Medications: Current Medications Acetaminophen (Acetaminophen 325 Mg Tablet) 650 mg PO Q6H PRN PRN Reason: Pain, Mild (Pain Scale 1-3) Dextrose (Dextrose 50 % 25 Gm/50 Ml Syringe) 25 gm IVPUSH Q15M PRN; Protocol PRN Reason: per Hypoglycemia Standing Ord. Docusate Sodium (Docusate Sodium 100 Mg Capsule) 100 mg PO DAILY PRN PRN Reason: Constipation Enoxaparin Sodium (Enoxaparin Sodium 40 Mg/0.4 Ml Syringe) 40 mg SUBCUT Q24H [facility] Last Admin: 06/09/22 00:04 Dose: 40 mg Glucose (Glucose Gel 15 Gm Gel..Gram.) 15 gm PO Q15M PRN; Protocol PRN Reason: per Hypoglycemia Standing Ord. Lactated Ringer's (Lr) 1,000 mls @ 200 mls/hr IVCONT .Q5H [facility] Last Admin: 06/09/22 09:21 Dose: 200 mls/hr Insulin Human Lispro (Insulin Lispro 100 Unit/Ml 3 Ml Vial) 0 unit SUBCUT QIDACHS [facility]; Protocol Last Admin: 06/09/22 08:10 Dose: Not Given Morphine Sulfate (Morphine Sulfate 4 Mg/Ml Cartridge) 4 mg IVPUSH Q4H PRN; Protocol PRN Reason: Pain, Severe (Pain Scale 7-10) Ondansetron HCl (Ondansetron Hcl 4 Mg/2 Ml Vial) 4 mg IVPUSH Q8H PRN PRN Reason: Nausea and Vomiting Pharmacy Consult (Consult Rx Perform Med Rec) 1 each MISCELLANE ONCE PRN PRN Reason: Consult order Sodium Chloride (0.9 % Sodium Chloride Flush 3 Ml Syringe) 3 ml IVFLUSH QSHIFT [facility] Last Admin: 06/09/22 07:19 Dose: Not Given Home Medications Medication Instructions Recorded Confirmed Last Taken Type insulin degludec 100 unit/mL (3 50 unit subcut DAILY@1900 06/08/22 06/08/22 06/06/22 History mL) subcutaneous pen (Tresiba FlexTouch U-100 insulin) metformin 500 mg tablet,extended 2 tab PO BID 06/08/22 06/08/22 Unknown History release 24 hr semaglutide 0.25 mg or 0.5 mg (2 0.25 mg subcut WE@0900 06/08/22 06/08/22 06/05/22 History mg/1.5 mL) subcutaneous pen injector (Ozempic) Physical Exam Vital Signs: Vital Signs: Last Vital Signs Temp 97.3 F 06/09/22 08:00 Pulse 88 10/09/22 08:00 Resp 17 06/09/22 08:00 BP 135/67 06/09/22 08:00 Pulse Ox 95 06/09/22 08:00 O2 Del Method 06/09/22 08:00 BMI result Body Mass Index 38.3 The patient is non-toxic & in good spirits NC/AT, PERRLA, EOMI Mood, affect & judgment all appear appropriate Sclera anicteric conjunctiva pink and moist Oropharynx is clear with no aphthous ulcers, Mallampati class 4, mucous membranes moist Neck is supple with no masses, adenopathy or bruits Heart is regular, normal S1-S2 no rubs or murmurs Lungs are clear and equal anteriorly with no audible wheezing, rubs or dullness to percussion Abdomen is obese with no demonstrable hernias. No HSM, rebound, rigidity, guarding, masses or bruits are present. Rectal exam is deferred Skin has good turgor and is free of rashes Extremities free of cyanosis clubbing edema Results Labs Result diagrams: 06/08/22 06:50 06/08/22 06:50 Labs: Abnormal lab results 06/08/22 06/08/22 06/08/22 Range/Units 06:50 16:01 20:14 POC Glucose 169 H 141 H (60-115) mg/dL ALT 34 H (0-31) U/L Lipase 569 H (8-78) U/L Liver Function 06/08/22 Range/Units 06:50 Total Bilirubin 0.3 (0.0-1.0) mg/dL Direct Bilirubin < 0.2 (0.0-0.5) mg/dL AST 31 (5-31) U/L ALT 34 H (0-31) U/L Alkaline Phosphatase 98 (39-117) U/L Albumin 3.7 (3.5-5.0) g/dL Urine 06/07/22 06/07/22 Range/Units 13:24 13:24 Urine Color Yellow Urine Appearance Clear Urine pH 5.5 (5.0-9.0) Ur Specific [place] 1.020 (1.005-1.025) Urine Protein Trace (Neg-Trace) mg/dL Urine Glucose (UA) Negative (Negative) mg/dL Urine Test NEGATIVE (NEGATIVE) All other labs normal. Imaging Abdomen CT scan report/results: report reviewed and image reviewed CT scan - pelvis: report reviewed and image reviewed Abdominal ultrasound report/results: report reviewed and image reviewed Assessment and Plan (1) Acute pancreatitis: Status: Acute (2) Abdominal pain: Status: Acute (3) Vomiting: Status: Acute (4) Gallstone: Status: Acute (5) Diabetes: Status: Acute (6) Asthma: Status: Acute Plan Through the office support assistant, I explained to the patient and her mother that gallstone pancreatitis can cause the symptoms as well as viral illness and other medications and other issues can cause pancreatitis. So the option of a 2nd opinion from another surgeon is up to them. However, it is possible that the patient has spit a gallstone and sustained gallstone pancreatitis which was mild and did not show on CT. Given that this is unpredictable in cannot occur again, I recommended that they consider laparoscopic or open cholecystectomy. I reviewed the fact that the gallbladder is removed, typically laparoscopically, that it is Day surgery and that there are risks of bleeding, infection and need for open surgery. I also reviewed that the most common complication after the procedure is food related diarrhea, gas and bloating. It is also possible the patient may have pancreatitis from other reasons and consequently, if the mother wants a 2nd opinion, she should explore that. Since the patient ate today and is clinically improved, she can be discharged. I have sent a message to my office staff to contact the patient and her mother so I can see them this week. Thank you for asking me to participate in her care. Procedures Date of Service Date of Service: 06/09/22
--- NOTE | 2022-06-09 10:57 | MHC.CM.PN ---
order for home, self care. CM acknowledge.
[2022-06-09 11:40] VITALS: BP 118/70; PULSE 91; RESP 15; TEMP 36.6; O2SAT 97
[2022-06-09] MEDS: Insulin Lispro 100 UNIT/ML 3 ML VIAL SUBCUT (12:00)
[2022-06-09 12:17] LABS: Estimated Average Glucose 154 mg/dL
== END 2022-06-09 13:23 | disposition home or self-care (01) | DRG 439 ==
LOC: HO.ED 22:19 → HO.EDOVER 06-08 → HO.S3 06-08 14:36
PROVIDERS: Physician Assistant; Surgery; Admitting Provider Internal Medicine; Emergency Provider Emergency Medicine; Visit Provider Internal Medicine
DX: K85.10 Biliary acute pancreatitis without necrosis or infection (principal); N39.0 Urinary tract infection, site not specified; J45.909 Unspecified asthma, uncomplicated; K80.20 Calculus of gallbladder without cholecystitis without obstruction; A08.4 Viral intestinal infection, unspecified; E11.9 Type 2 diabetes mellitus without complications; E66.9 Obesity, unspecified; Z68.38 Body mass index [BMI] 38.0-38.9, adult; Z20.822 Contact with and (suspected) exposure to COVID-19; Z56.0 Unemployment, unspecified; Z79.4 Long term (current) use of insulin; Z79.84 Long term (current) use of oral hypoglycemic drugs; Z79.899 Other long term (current) drug therapy
CPT/HCPCS: 36415; 74177; 76705; 80048; 80076; 81001; 81025; 82947; 83036; 83690; 83735; 84478; 85025; 87086; 87635; 96361; 96374; 96375; 99285; J1650; J2270; J2405; Q9967

== ENCOUNTER → 2022-06-11 13:00 | Outpatient (BNVA) | payer MEDICARE, MEDICAID, SELFPAY | PROVIDERS: Visit Provider Surgery | DX: R10.9 Unspecified abdominal pain (principal); K80.20 Calculus of gallbladder without cholecystitis without obstruction; E11.9 Type 2 diabetes mellitus without complications; J45.909 Unspecified asthma, uncomplicated; R10.13 Epigastric pain | CPT/HCPCS: 99202 ==

== ENCOUNTER → 2022-08-09 14:25 | Outpatient (BNVA) | payer MEDICARE, MEDICAID, SELFPAY | PROVIDERS: Visit Provider Internal Medicine | DX: K85.90 Acute pancreatitis without necrosis or infection, unspecified (principal); K80.20 Calculus of gallbladder without cholecystitis without obstruction; R10.13 Epigastric pain | CPT/HCPCS: 99202 ==

== ENCOUNTER → 2022-08-14 12:45 | Outpatient (BNVA) | payer MEDICARE, MEDICAID, SELFPAY | PROVIDERS: Visit Provider Surgery | DX: K80.20 Calculus of gallbladder without cholecystitis without obstruction (principal); K85.90 Acute pancreatitis without necrosis or infection, unspecified; E11.9 Type 2 diabetes mellitus without complications; J45.909 Unspecified asthma, uncomplicated | CPT/HCPCS: 99212 ==

== ENCOUNTER 2022-08-21 07:44 | Day surgery (SDC) | payer MEDICARE, MEDICAID, SELFPAY ==
[2022-08-16 09:56] VITALS: BMI 51.3
--- NOTE | 2022-08-20 10:48 | HO.ANESPROP2 ---
Documented by User: Destiney Floyd NP 08/20/22 10:49 HPI - Anesthesia Eval Consult details Narrative: 22yo F for Upper Endoscopy PMFSH Active Problems Active Problems: All Active Problems (Updated 08/16/22 @ 09:53 by Veronica Fu, ANGIE) Vomiting (Acute) Abdominal pain (Acute) Acute pancreatitis (Acute) Viral gastroenteritis (Acute) Gallstone (Acute) UTI (urinary tract infection) (Acute) Epigastric abdominal pain (Acute) Asthma (Acute) Diabetes (Acute) Past Medical History Medical History Asthma Diabetes Family History Family History Mother Diabetes Hypertension Surgical History Surgical History No pertinent past surgical history Social History Social History Household Members: Family Housing: Apartment Do you presently have visiting nurse or other home services: No Alcohol intake: never Patient Tobacco Use Status: Never used Tobacco Are you DNR?: No Advance Directives: No Advance Directives Information Provided: Yes Nutrition Risks: No Nutritional Risk FDLMP: 3 mths ago service: No Current occupational status: unemployed Meds Allergies Allergy/AdvReac Type Severity Reaction Status Date / Time No Known Allergies Allergy Verified 08/14/22 13:05 [No Known Allergies*] Home Medications Medication Instructions Recorded Confirmed Last Taken Type insulin degludec 100 unit/mL (3 50 unit subcut DAILY@1900 06/08/22 08/21/22 08/20/22 History mL) subcutaneous pen (Tresiba FlexTouch U-100 insulin) blood sugar diagnostic (FreeStyle #10 ea 08/09/22 Unknown History Lite Strips) blood-glucose meter (FreeStyle #1 ea 08/09/22 Unknown History [place] Lite kit) lancets 33 gauge (TRUEplus Lancets) #100 ea 08/09/22 Unknown History metformin 500 mg tablet,extended 500 mg PO BID 08/09/22 08/21/22 08/20/22 History release 24 hr pen needle, diabetic 32 gauge x #50 ea 08/09/22 Unknown History (Pentips) semaglutide 0.25 mg or 0.5 mg (2 0.25 mg subcut QWEEK 08/21/22 08/21/22 08/14/22 History mg/1.5 mL) subcutaneous pen injector (Ozempic) Exam Exam Date and Time: August 20, 2022 1048 Height,Weight and Vital Signs: Height 4 ft 3 in Weight 86.183 kg Pertinent Lab Results Pertinent Lab Results: Laboratory Tests 06/08/22 06/08/22 06:50 06:50 WBC 16.0 H Hgb 12.2 Hct 37.7 Plt Count TNP Sodium 141 Potassium 4.5 Chloride 109 H Carbon Dioxide 21 L BUN 10 Creatinine 0.65 Assessment and Plan Assessment Anesthesia Assessment: Chart Reviewed Documented by User: Sharon Olson MD 08/21/22 09:32 [facility] Active Problems Active Problems: All Active Problems (Updated 08/21/22 @ 08:56 by Sharon Olson MD) Vomiting (Acute) Abdominal pain (Acute) Acute pancreatitis (Acute) Viral gastroenteritis (Acute) Gallstone (Acute) UTI (urinary tract infection) (Acute) Epigastric abdominal pain (Acute) Asthma (Acute)- rarely uses inhaler Diabetes (Acute) Morbid Obesity BMI 51.4 JUAN RAMON. Did not get CPAP machine yet Past Medical History Medical History Asthma Diabetes Family History Family History Mother Diabetes Hypertension Family history of problems with anesthesia: No Surgical History Surgical History No pertinent past surgical history History of Problems with Anesthesia: No Social History Social History Household Members: Family Housing: Apartment Do you presently have visiting nurse or other home services: No Alcohol intake: never Patient Tobacco Use Status: Never used Tobacco Are you DNR?: No Advance Directives: No Advance Directives Information Provided: Yes Nutrition Risks: No Nutritional Risk FDLMP: 3 mths ago service: No Current occupational status: unemployed Meds Allergies Allergy/AdvReac Type Severity Reaction Status Date / Time No Known Allergies Allergy Verified 08/14/22 13:05 [No Known Allergies*] Home Medications Medication Instructions Recorded Confirmed Last Taken Type insulin degludec 100 unit/mL (3 50 unit subcut DAILY@1900 06/08/22 08/21/22 08/20/22 History mL) subcutaneous pen (Tresiba FlexTouch U-100 insulin) blood sugar diagnostic (FreeStyle #10 ea 08/09/22 Unknown History Lite Strips) blood-glucose meter (FreeStyle #1 ea 08/09/22 Unknown History [place] Lite kit) lancets 33 gauge (TRUEplus Lancets) #100 ea 08/09/22 Unknown History metformin 500 mg tablet,extended 500 mg PO BID 08/09/22 08/21/22 08/20/22 History release 24 hr pen needle, diabetic 32 gauge x #50 ea 08/09/22 Unknown History (Pentips) semaglutide 0.25 mg or 0.5 mg (2 0.25 mg subcut QWEEK 08/21/22 08/21/22 08/14/22 History mg/1.5 mL) subcutaneous pen injector (Ozempic) Exam Height,Weight and Vital Signs: Height 4 ft 3 in Weight 86.183 kg Vital Signs Temp Pulse Resp BP Pulse Ox O2 Del Method 08/21/22 08:03 97 F 108 H 16 124/91 H 99 Room Air Pertinent Lab Results Pertinent Lab Results: Laboratory Tests 06/08/22 06/08/22 06:50 06:50 WBC 16.0 H Hgb 12.2 Hct 37.7 Plt Count TNP Sodium 141 Potassium 4.5 Chloride 109 H Carbon Dioxide 21 L BUN 10 Creatinine 0.65 Lab Results 08/21/22 08/21/22 Range/Units 08:00 08:16 POC Glucose 187 H (60-115) mg/dL Urine Test NEGATIVE (NEGATIVE) Airway Mallampati Class: II TM Dist: >3cm Neck ROM: Full Loose/Missing/Broken Teeth: No (Denies broken, loose, missing teeth) Heart: RRR Lungs: Diminished. Clear Assessment and Plan Assessment Anesthesia Assessment: Anesthesia Plan Discussed Final Anesthetic Review Family History of Problems with Anesthesia: No History of Problems with Anesthesia: No NPO: Yes ASA Class: III Final Preanesthetic Review: No Changes in Pt Med Stat, Meds/Allgs Chart Reviewed, Consent Obtained/Reviewed and Anes Risks/Benef Reviewed Patient Risk: Intermediate Procedure Risk: Low Assessment/Block/Sedation in SS: Assess/Block/Sedation-SS Anesthetic Plan Anesthetic Plan: MAC: Disposition: Standard PACU
[2022-08-21 08:03] VITALS: BP 124/91; PULSE 108; RESP 16; TEMP 36.1; O2SAT 99
[2022-08-21 08:22] LABS: Glucose, Whole Blood 187 mg/dL (60-115)
[2022-08-21 08:29] LABS: UPreg QC Valid YES; Urine Pregnancy NEGATIVE (NEGATIVE)
[2022-08-21] MEDS: Lactated Ringers 1,000 ML 100 ML IVCONT (08:29)
--- NOTE | 2022-08-21 09:36 | MHC.SHP ---
Pre-Procedural Eval Section A Date of Service: 08/21/22 The History & Physical has been completed within 30 days and I have reviewed it.: Yes Section B Chief Complaint: Epigastric pain Allergies: Allergies Allergy/AdvReac Type Severity Reaction Status Date / Time No Known Allergies Allergy Verified 08/14/22 13:05 [No Known Allergies*] Plan Diagnosis/Plan: Unchanged I have reviewed the history and physical and performed a pertinent physical examination on my patient. No changes have occurred unless specified. Time Spent With Patient Time: Total time managing care of this patient today ____ minutes.
--- NOTE | 2022-08-21 09:37 | P.OP_ITS ---
Operative Note Operative Note Date of Service: 08/21/22 Narrative: Procedure: Esophagogastroduodenoscopy Endoscopist: Sarah Loya MD Indication: Abdominal pain Anesthesia Provider: Susan De La Torre CRNA Anesthesia Type: MAC Instrument: Olympus [id number] ?? EGD Procedure:?? The procedure, indications, preparation and potential complications were reviewed with the patient, who indicated understanding and gave written informed consent to proceed. A manager medical writing assisted with informed consent. A physical exam was performed. The endoscope was introduced through the mouth, and advanced to the second part of duodenum. The mucosa was carefully examined on slow withdrawal of the endoscope. The patient tolerated the procedure well. There were no immediate complications.? ? EGD Findings:? * Esophagus:? Normal mucosa noted in the entire esophagus. The Z line was at 35 cm. * Stomach:? Normal mucosa was noted in the stomach. One small erosion was noted at the pylorus. Random gastric biopsies were taken to rule out H Pylori infection. * Duodenum:? Normal mucosa was noted in the whole of the examined duodenum. ? EGD Impressions:? * Normal esophagus * A small pyloric erosion otherwise normal gastric mucosa (biopsy) * Normal duodenum ?? Recommendations:?? * Follow biopsy results. Our office will call or send a letter with results within 7-10 days. * If H pylori +, patient will be prescribed eradication therapy followed by test of cure. * Avoid NSAIDs. Above has been reviewed with the patient. Relevant educational hand outs were provided at discharge.
[2022-08-21 10:02] VITALS: BP 110/58; PULSE 100; RESP 16; TEMP 36.6; O2SAT 98
[2022-08-21 10:17] VITALS: BP 120/83; PULSE 98; RESP 16; TEMP 36.8; O2SAT 97
== END 2022-08-21 10:39 | disposition home or self-care (01) ==
PROVIDERS: Nurse Practitioner; Visit Provider Internal Medicine
PROC: 0DJ08ZZ Inspection of Upper Intestinal Tract, Via Natural or Artificial Opening Endoscopic (ICD-10-PCS; CPT 43235; principal; 2022-08-21 09:10)
DX: K29.60 Other gastritis without bleeding (principal); K80.20 Calculus of gallbladder without cholecystitis without obstruction; K85.90 Acute pancreatitis without necrosis or infection, unspecified; J45.909 Unspecified asthma, uncomplicated; E66.01 Morbid (severe) obesity due to excess calories; Z68.43 Body mass index [BMI] 50.0-59.9, adult; E11.9 Type 2 diabetes mellitus without complications; Z79.4 Long term (current) use of insulin; Z79.899 Other long term (current) drug therapy
CPT/HCPCS: 43239; 81025; 82947; 88305; 88342; J2250

== ENCOUNTER → 2022-08-22 13:13 | Outpatient (BNVA) | payer MEDICARE, MEDICAID, SELFPAY | PROVIDERS: Visit Provider Surgery | DX: K80.20 Calculus of gallbladder without cholecystitis without obstruction (principal); K85.90 Acute pancreatitis without necrosis or infection, unspecified; E11.9 Type 2 diabetes mellitus without complications; E66.01 Morbid (severe) obesity due to excess calories; Z68.43 Body mass index [BMI] 50.0-59.9, adult | CPT/HCPCS: 99212 ==

== ENCOUNTER → 2022-08-28 13:49 | Outpatient (BNVA) | payer MEDICARE, MEDICAID, SELFPAY | PROVIDERS: Visit Provider Physician Assistant Surgical | DX: E66.01 Morbid (severe) obesity due to excess calories (principal); E11.9 Type 2 diabetes mellitus without complications; Z68.43 Body mass index [BMI] 50.0-59.9, adult; Z11.2 Encounter for screening for other bacterial diseases; Z79.4 Long term (current) use of insulin | CPT/HCPCS: 99202 ==

== ENCOUNTER 2022-09-05 07:35 | Day surgery (SDC) | payer MEDICARE, MEDICAID, SELFPAY ==
[2022-08-30 09:43] VITALS: BMI 51.3
--- NOTE | 2022-09-04 09:47 | HO.ANESPROP2 ---
Documented by User: Destiney Floyd NP 09/04/22 09:48 HPI - Anesthesia Eval Consult details Narrative: 22yo F for Cholecystectomy Laparoscopic, possible open, possible cholangiogram s/p EGD with MAC 08/2022 [facility] Active Problems Active Problems: All Active Problems (Updated 08/30/22 @ 09:32 by Veronica Fu RN) Vomiting (Acute) Abdominal pain (Acute) Acute pancreatitis (Acute) Viral gastroenteritis (Acute) Gallstone (Acute) UTI (urinary tract infection) (Acute) Epigastric abdominal pain (Acute) Morbid (severe) obesity due to excess calories (Acute) Asthma (Acute) Diabetes (Acute) Past Medical History Medical History (Updated 08/30/22 @ 09:32 by Veronica Fu RN) Asthma Diabetes Family History Family History Mother Diabetes Hypertension Family history of problems with anesthesia: No Surgical History Surgical History (Updated 08/30/22 @ 09:39 by Veronica Fu RN) History of esophagogastroduodenoscopy (EGD) History of Problems with Anesthesia: No Social History Social History Household Members: Family Housing: Apartment Do you presently have visiting nurse or other home services: No Alcohol intake: never Patient Tobacco Use Status: Never used Tobacco Use of substances other than those prescribed or required for medical reasons: No Are you DNR?: No Advance Directives: No Advance Directives Information Provided: Yes service: No Current occupational status: unemployed Meds Allergies Allergy/AdvReac Type Severity Reaction Status Date / Time No Known Allergies Allergy Verified 08/28/22 14:15 [No Known Allergies*] Home Medications Medication Instructions Recorded Confirmed Last Taken Type insulin degludec 100 unit/mL (3 50 unit subcut DAILY@1900 06/08/22 08/30/22 08/20/22 History mL) subcutaneous pen (Tresiba FlexTouch U-100 insulin) blood sugar diagnostic (FreeStyle #10 ea 08/09/22 08/30/22 Unknown History Lite Strips) blood-glucose meter (FreeStyle #1 ea 08/09/22 08/30/22 Unknown History [place] Lite kit) lancets 33 gauge (TRUEplus Lancets) #100 ea 08/09/22 08/30/22 Unknown History metformin 500 mg tablet,extended 500 mg PO BID 08/09/22 08/30/22 08/20/22 History release 24 hr pen needle, diabetic 32 gauge x #50 ea 08/09/22 08/30/22 Unknown History (Pentips) semaglutide 0.25 mg or 0.5 mg (2 0.25 mg subcut QWEEK 08/21/22 08/30/22 08/14/22 History mg/1.5 mL) subcutaneous pen injector (Ozempic) Exam Exam Date and Time: September 04, 2022 09 Height,Weight and Vital Signs: Height 4 ft 3 in Weight 86.183 kg Pertinent Lab Results Pertinent Lab Results: Laboratory Tests 06/08/22 06/08/22 06:50 06:50 WBC 16.0 H Hgb 12.2 Hct 37.7 Plt Count TNP Sodium 141 Potassium 4.5 Chloride 109 H Carbon Dioxide 21 L BUN 10 Creatinine 0.65 Assessment and Plan Assessment Anesthesia Assessment: Chart Reviewed Final Anesthetic Review Family History of Problems with Anesthesia: No History of Problems with Anesthesia: No Documented by User: Erwin Henderson MD 09/05/22 10:57 [facility] Past Medical History Medical History (Updated 08/30/22 @ 09:32 by Veronica Fu RN) Asthma Diabetes Patient : No Family History Family History Mother Diabetes Hypertension Surgical History Surgical History (Updated 08/30/22 @ 09:39 by Veronica Fu RN) History of esophagogastroduodenoscopy (EGD) Social History Social History Household Members: Family Housing: Apartment Do you presently have visiting nurse or other home services: No Alcohol intake: never Patient Tobacco Use Status: Never used Tobacco Use of substances other than those prescribed or required for medical reasons: No Are you DNR?: No Advance Directives: No Advance Directives Information Provided: Yes service: No Current occupational status: unemployed Meds Allergies Allergy/AdvReac Type Severity Reaction Status Date / Time No Known Allergies Allergy Verified 08/28/22 14:15 [No Known Allergies*] Home Medications Medication Instructions Recorded Confirmed Last Taken Type insulin degludec 100 unit/mL (3 50 unit subcut DAILY@1900 06/08/22 08/30/22 08/20/22 History mL) subcutaneous pen (Tresiba FlexTouch U-100 insulin) blood sugar diagnostic (FreeStyle #10 ea 08/09/22 08/30/22 Unknown History Lite Strips) blood-glucose meter (FreeStyle #1 ea 08/09/22 08/30/22 Unknown History [place] Lite kit) lancets 33 gauge (TRUEplus Lancets) #100 ea 08/09/22 08/30/22 Unknown History metformin 500 mg tablet,extended 500 mg PO BID 08/09/22 08/30/22 08/20/22 History release 24 hr pen needle, diabetic 32 gauge x #50 ea 08/09/22 08/30/22 Unknown History (Pentips) semaglutide 0.25 mg or 0.5 mg (2 0.25 mg subcut QWEEK 08/21/22 08/30/22 08/14/22 History mg/1.5 mL) subcutaneous pen injector (Ozempic) Exam Airway Mallampati Class: II TM Dist: >3cm Neck ROM: Full Loose/Missing/Broken Teeth: No Heart: rrr Lungs: cta Assessment and Plan Final Anesthetic Review NPO: Yes ASA Class: III (Dm, morbid obesity, asthma) Final Preanesthetic Review: No Changes in Pt Med Stat, Meds/Allgs Chart Reviewed, Consent Obtained/Reviewed and Anes Risks/Benef Reviewed Patient Risk: Intermediate Procedure Risk: Intermediate Anesthetic Plan Anesthetic Plan: GA and Agree w/ Assess. and Plan Disposition: Standard PACU
[2022-09-05] VITALS (10 sets, daily range): BP systolic 115–149; BP diastolic 72–99; PULSE 98–111; RESP 16–36; TEMP 36.4–36.7; O2SAT 94–99
[2022-09-05 08:24] LABS: UPreg QC Valid YES; Urine Pregnancy NEGATIVE (NEGATIVE)
[2022-09-05 08:42] LABS: Glucose, Whole Blood 162 mg/dL (60-115)
[2022-09-05] MEDS: Acetaminophen 325 MG TABLET 650 MG PO (09:04)
[2022-09-05] MEDS: Lactated Ringers 1,000 ML 100 ML IVCONT (09:05)
--- NOTE | 2022-09-05 10:49 | MHC.SHP ---
Pre-Procedural Eval Section A Date of Service: 09/05/22 The patient is an INPATIENT: No The History & Physical has been completed within 30 days and I have reviewed it.: Yes Section B Chief Complaint: Calculus of gallbladder without cholecystitis Allergies: Allergies Allergy/AdvReac Type Severity Reaction Status Date / Time No Known Allergies Allergy Verified 08/28/22 14:15 [No Known Allergies*] Plan I have reviewed the history and physical and performed a pertinent physical examination on my patient. No changes have occurred unless specified. Time Spent With Patient Time: Total time managing care of this patient today ____ minutes.
--- NOTE | 2022-09-05 10:51 | W.PM.OPN ---
Operative Note Operative Note Date of Service: 09/05/22 Narrative: Preop diagnosis: [Gallstone pancreatitis] Postop diagnosis: [Same] Procedure: [lap edilia] Surgeon: Yaya Montejo MD Assist: [none] Anesthesia: [GET, local bupivicaine, 0.5% with epi] Estimated blood loss: [3cc] Specimen: [gall bladder & contents] Intraoperative findings: [5 mm cystic duct; 2-3 mm cystic artery. Critical view of safety demonstrated. Adhesions to the neck of the gallbladder from omentum in the area were carefully taken down.] Indications: [The patient is a 22-year-old woman who was admitted with pancreatitis previously. Some of her symptoms were vague and nonspecific, so evaluation by Gastroenterology was performed and ultimately, no other etiology was determined for her pancreatitis other than her gallstones. The pros and cons of cholecystectomy were reviewed with the patient and, at her request, the woman she views as her mother. The inherent risks of recurrent pancreatitis if her pancreatitis is not due to her gallstones, as well as bleeding, infection, need for an open operation, the possibility of bile leak, bile duct injury or retained common duct stones was also discussed. Activity restrictions and dietary recommendations were also reviewed and apparently understood. The patient seemed understand her options, the patient's mother also seemed understand and wanted to proceed. They declined the option of a 2nd opinion.] Procedure: [The patient was identified in preoperative holding and again in the operating room and placed supine on the table. The patient voided bladder education dean, sequential compression stockings were in place, subcu heparin had been administered and antibiotics per protocol were given. The patient was induced in general endotracheal anesthesia administered with excellent effect. An appropriate time-out was performed. A footboard was utilized. The patient's abdomen was widely prepped and draped in the usual manner for surgery using chlorhexidine. Preemptive local was used at all trocar insertion sites. Again at the supraumbilical location and after infiltrating local, made a stab incision and placed a Veress needle without difficulty. An appropriate drop test was performed and a pneumoperitoneum of 15 mmHg was obtained using carbon dioxide. opening pressure was 6 mm Hg. Next, the needle was withdrawn and a 5 mm/30 degree laparoscoped over Optiview trocar was used to access the abdomen without incident. Upon examining the abdomen, there was no evidence of injury from the Veress needle or trocar. Next, 5 mm trocars were placed in the epigastric, subcostal and right anterior axillary line just above the line of the umbilicus. Under direct laparoscopic vision, the 5 mm umbilical port was upsized to a 12 mm. The patient was then positioned in reverse Trendelenburg position and banked left. The gallbladder was clearly identified and grasped by its fundus. It was retracted cranially and anteriorly and dissection began in the cystic triangle. The cystic duct was identified at its junction on the gallbladder and dissection began laterally, then circumferentially dissected using the [place] dissector and hook. The cystic artery was then carefully identified and circumferentially dissected. Once dissection of both structures was complete and the critical view of safety demonstrated, the duct and artery were double clipped proximally and once distally and sharply divided. Electrocautery was used to remove the gallbladder from its fossa on the liver. Liver bed was inspected for hemostasis and the clips were noted to be on the respective structures. The gallbladder was placed in an Endo-Catch bag and delivered through the umbilicus under direct laparoscopic vision. The abdomen was again inspected with the laparoscoped and a abdomen deflated to assess for hemostasis. The patient was returned to neutral position, the abdomen deflated and the fascia of the supraumbilical incision closed with interrupted Vicryl sutures. Skin was closed with 4-0 Monocryl subcuticular sutures. Mastisol and Steri-Strips were applied followed by Band-Aids. The patient tolerated the procedure well and was extubated recovered in stable condition. All sponge instrument counts were correct. At the patient's request I met with he mother with an implementation project coordinator Mart in a consult room in [facility] and apprised her of the operation and plan, as the pt requested. Instructions regarding diet and activity reviewed and apparently understood. Her questions seemed to be satisfactorily answered.]
[2022-09-05] MEDS: fentaNYL citrate/PF 100 MCG/2 ML VIAL 25 MCG IVPUSH (13:05)
[2022-09-05] MEDS: ondansetron HCL 4 MG/2 ML VIAL IVPUSH (13:05)
[2022-09-05] MEDS: oxyCODONE HCl Immed Release 5 MG TABLET PO (13:06)
== END 2022-09-05 14:04 | disposition home or self-care (01) ==
LOC: HO.SSS 07:36
PROVIDERS: Nurse Practitioner; Visit Provider Surgery
PROC: 0FT44ZZ Resection of Gallbladder, Percutaneous Endoscopic Approach (ICD-10-PCS; CPT 47562; principal; 2022-09-05 09:50)
DX: K80.10 Calculus of gallbladder with chronic cholecystitis without obstruction (principal); K85.90 Acute pancreatitis without necrosis or infection, unspecified; J45.909 Unspecified asthma, uncomplicated; E66.01 Morbid (severe) obesity due to excess calories; Z68.43 Body mass index [BMI] 50.0-59.9, adult; E11.9 Type 2 diabetes mellitus without complications; Z79.4 Long term (current) use of insulin
CPT/HCPCS: 47562; 81025; 82947; 88304; J0690; J1100; J1885; J2370; J2405; J3010; Q9967

== ENCOUNTER 2022-09-11 09:25 | Outpatient (REF) | payer MEDICARE, MEDICAID, SELFPAY ==
--- NOTE | ~2022-09-11 | XR_ITS ---
EXAMINATION: XR CHEST CLINICAL INFORMATION: Bariatric service evaluation. E66.01. COMPARISON: Chest radiographs 05/26/2019 TECHNIQUE: 2 views of the chest were obtained. FINDINGS: Lungs clear. Heart size normal. Vascularity normal. No airspace consolidation, airspace opacity or effusion. The costophrenic sulci are clear. The hilar and mediastinal contours are normal. There is mild curvature thoracolumbar spine. Surgical clips right upper abdomen likely from prior cholecystectomy. XR/XR chest 2V IMPRESSION: Unremarkable examination.
--- NOTE | 2022-09-11 09:36 | ECG_ITS ---
Test Reason : OBESITY Blood Pressure : / mmHG Vent. Rate : 100 BPM Atrial Rate : 100 BPM P-R Int : 132 ms QRS Dur : 072 ms QT Int : 332 ms P-R-T Axes : 012 047 011 degrees QTc Int : 428 ms Normal sinus rhythm Normal ECG No previous ECGs available Referred By: Ben Bailon Electronically Signed By:Jad Brasher
[2022-09-11 09:51] LABS: MANUAL DIFF FLAG NO
[2022-09-11 10:19] LABS: Basophils Absolute Auto 0.1 X10*3/uL (0.0-0.2); Basophils Percent Auto 0.4 % (0-2); Eosinophils Absolute Auto 0.1 X10*3/uL (0.0-0.4); Eosinophils Percent Auto 0.7 % (0-4); Hematocrit 41.5 % (37.0-47.0); Hemoglobin 13.3 g/dl (12.0-16.0); Imm Gran Abs Auto 0.09 X10*3/uL (0.00-0.03); Imm Gran Pct Auto 0.7 % (0.0-0.4); Lymphocytes Absolute Auto 3.5 X10*3/uL (1.2-4.9); Lymphocytes Percent Auto 25.6 % (20-40); Mean Corpuscular Hemoglobin 26.7 pg (27.0-33.0); Mean Corpuscular Volume 83.3 fL (80.0-98.0); Mean Platelet Volume 10.5 fL (9.4-12.3); Monocytes Absolute Auto 0.7 X10*3/uL (0.1-1.2); Monocytes Percent Auto 5.3 % (2-11); Neutrophils Absolute Auto 9.2 x10*3/uL (2.0-8.3); Neutrophils Percent Auto 67.3 % (45-73); Platelet Count 403 X10*3/uL (160-400); Red Blood Count 4.98 X10*6/uL (4.20-5.50); Red Cell Distribution Width 12.8 % (11.0-16.0); White Blood Count 13.6 X10*3/uL (4.8-10.8)
[2022-09-11 10:46] LABS: Estimated Average Glucose 197 mg/dL; Hemoglobin A1c % 8.5 %
[2022-09-11 11:48] LABS: Alanine Aminotransferase 21 U/L (0-31); Alkaline Phosphatase 95 U/L (39-117); Anion Gap 15 (12-20); Aspartate Amino Transferase 15 U/L (5-31); Bilirubin Total 0.4 mg/dL (0.0-1.0); Blood Urea Nitrogen 18 mg/dL (9-16); C Reactive Protein 4.25 mg/dL (< or = 0.50); Calcium 9.5 mg/dL (8.4-10.2); Carbon Dioxide 25 mmol/L (22-29); Chloride 105 mmol/L (96-108); Cholesterol 184 mg/dL; Estimated Glomerular Filt Rate > 60; Glucose Random 161 mg/dL (60-115); HDL Cholesterol 33 mg/dL; Iron 60 mcg/dL (30-160); Percent Iron Saturation 22 % (15-50); Potassium 4.2 mmol/L (3.3-5.1); Sodium 141 mmol/L (135-145); Total Iron Binding Capacity 268 mcg/dL (228-428); Total Protein 7.6 g/dL (6.5-8.0); Unsaturated Iron Binding 208 ug/dL
[2022-09-11 12:34] LABS: Folate 7.5 ng/mL (> or = 4.0); Vitamin B12 467 pg/mL (200-900)
[2022-09-11 12:54] LABS: Albumin Level 4.3 g/dL (3.5-5.0); LDL Cholesterol Calculated 131 mg/dl; Triglycerides 103 mg/dL
[2022-09-11 13:26] LABS: Ferritin 139 ng/mL (10-122); Insulin 18 uU/mL (2-29); TSH reflex Free T4 0.77 uIU/mL (0.32-4.0); Vitamin D 25-OH Total 14.7 ng/mL (>30)
[2022-09-12 13:44] LABS: Calcium (PTHI) 9.5 mg/dL (8.6-10.2); PTHI 54 pg/mL (16-77)
[2022-09-15 20:02] LABS: Vitamin B1 14 nmol/L (8-30)
[2022-09-15 20:39] LABS: Zinc 88 mcg/dL (60-130)
[2022-09-17 14:34] LABS: Vitamin A 42 mcg/dL (38-98)
== END 2022-09-11 09:26 | disposition home or self-care (01) ==
LOC: HO.LAB 09:25
PROVIDERS: Visit Provider Physician Assistant Surgical
DX: E66.01 Morbid (severe) obesity due to excess calories (principal)
CPT/HCPCS: 36415; 71046; 80053; 80061; 82306; 82607; 82728; 82746; 83036; 83525; 83540; 83970; 84425; 84443; 84590; 84630; 85025; 86140; 93005

== ENCOUNTER → 2022-09-13 10:40 | Outpatient (BNVA) | payer MEDICARE, MEDICAID, SELFPAY | PROVIDERS: Visit Provider Surgery | DX: Z13.89 Encounter for screening for other disorder (principal) | CPT/HCPCS: 99212 ==

== ENCOUNTER → 2022-09-18 10:03 | Outpatient (BNVA) | payer MEDICARE, MEDICAID, SELFPAY | PROVIDERS: Visit Provider Physician Assistant Surgical | DX: E66.9 Obesity, unspecified (principal); Z90.49 Acquired absence of other specified parts of digestive tract; Z68.39 Body mass index [BMI] 39.0-39.9, adult | CPT/HCPCS: 99212 ==

== ENCOUNTER → 2022-09-24 09:42 | Outpatient (BNVA) | payer MEDICARE, MEDICAID, SELFPAY | PROVIDERS: Referring Provider Physician Assistant Surgical; Visit Provider Dietitian, Registered | DX: E66.9 Obesity, unspecified (principal); Z68.38 Body mass index [BMI] 38.0-38.9, adult; E11.9 Type 2 diabetes mellitus without complications; Z71.3 Dietary counseling and surveillance | CPT/HCPCS: 97802 ==

== ENCOUNTER → 2022-10-11 14:15 | Outpatient (BNVA) | payer MEDICARE, MEDICAID, SELFPAY | PROVIDERS: Visit Provider Physician Assistant Surgical | DX: E66.9 Obesity, unspecified (principal); E11.9 Type 2 diabetes mellitus without complications; Z68.38 Body mass index [BMI] 38.0-38.9, adult; Z79.4 Long term (current) use of insulin; Z90.49 Acquired absence of other specified parts of digestive tract | CPT/HCPCS: 99212 ==

== ENCOUNTER → 2022-12-10 09:03 | Outpatient (BNVA) | payer MEDICARE, MEDICAID, SELFPAY | PROVIDERS: Visit Provider Counselor Mental Health ==

== ENCOUNTER → 2022-12-20 14:35 | Outpatient (BNVA) | payer MEDICARE, MEDICAID, SELFPAY | PROVIDERS: Visit Provider Counselor Mental Health ==

== ENCOUNTER → 2023-02-03 15:09 | Outpatient (BNVA) | payer MEDICARE, MEDICAID, SELFPAY | PROVIDERS: Visit Provider Physician Assistant Surgical | DX: E66.9 Obesity, unspecified (principal); Z68.39 Body mass index [BMI] 39.0-39.9, adult | CPT/HCPCS: 99212 ==

== ENCOUNTER 2023-05-21 10:44 | Outpatient (REF) | payer MEDICARE, MEDICAID, SELFPAY ==
[2023-05-23 17:39] LABS: TS Negative Control Passed; TS Panel A 0; TS Panel B 0; TS Positive Control Passed; TSpotTB Negative (Negative)
== END 2023-05-21 10:45 | disposition home or self-care (01) ==
LOC: HO.HHCL 10:44
PROVIDERS: Visit Provider Nurse Practitioner Primary Care
DX: Z11.1 Encounter for screening for respiratory tuberculosis (principal)
CPT/HCPCS: 36415; 86481

== ENCOUNTER 2023-10-16 13:31 | Outpatient (REF) | payer MEDICARE, MEDICAID, SELFPAY ==
[2023-10-17 02:52] LABS: CT PCR NOT DETECTED (Not Detect.); NG PCR NOT DETECTED (Not Detect.)
[2023-10-17 09:55] LABS: BV Int Neg Control Negative (Negative); BV Int Pos Control Positive (Positive)
[2023-11-12 07:14] LABS: HPV 16 RNA NOT DETECTED (NOT DETECTED); HPV mRNA E6/E7 rflx Detected (Not Detected)
== END 2023-10-16 13:32 | disposition home or self-care (01) ==
LOC: HO.LAB 13:31
PROVIDERS: PCP Nurse Practitioner Primary Care; Visit Provider Advanced Practice Midwife
DX: Z01.419 Encounter for gynecological examination (general) (routine) without abnormal findings (principal); Z11.51 Encounter for screening for human papillomavirus (HPV); Z20.2 Contact with and (suspected) exposure to infections with a predominantly sexual mode of transmission; N81.89 Other female genital prolapse
CPT/HCPCS: 0353U; 87480; 87510; 87624; 87625; 87660; 88142; G0101

== ENCOUNTER 2023-10-16 13:31 | Outpatient (AMB) | payer MEDICARE, MEDICAID, SELFPAY ==
--- NOTE | 2023-10-16 13:30 | MHC.OFFVIS ---
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 Required: No Information Interpreted: clinical only Concrete Swimming Pool Installer: Concrete Swimming Pool Installer Present Allergies No Known Allergies [No Known Allergies*] Allergy (Verified 10/16/23 13:32) Medication List - Last Reconciled 10/16/23 by Rosie Lin CNM blood sugar diagnostic (FreeStyle Lite Strips) As directed blood-glucose meter (FreeStyle [place] Lite kit) As directed etonogestrel (Nexplanon) subdermal insulin degludec (Tresiba FlexTouch U-100 insulin) 50 units subcut DAILY@1900 lancets (TRUEplus Lancets) As directed metformin ER 500 mg PO BID omeprazole 20 mg PO DAILY 4 weeks pen needle, diabetic ([place]) As directed semaglutide (Ozempic) 0.25 mg subcut QWEEK Is last menstrual period known: No (not getting period, because of Nexplanon) Do you need a note to return to daycare/school/sports/work: No 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 She said she did not remember too many details but gradually through the visit more details were shared she has been sexually active but it was 2 or 2 and half years ago and she has not sexually active now she lives with her mother. She has not actively involved in the weight management program anymore and she says been a long time. She has gained weight since her last visit with them. Her primary care provider is here at the [facility] she is diabetic. She is waiting to see she and her mom can go to [email or web address] but there is something they are waiting on her mother has a painful leg currently and was walking with a limp. Patient states she has not sexually active anymore and not planning to be she has a Nexplanon that was inserted about a year ago she says she does not the does not let her get her. Though I did 1 is very overweight sometimes that prevents somebody from getting there. As well. During the visit her mother received a phone call from the daughter protective services social worker and the daughter spoke with her during the visit. [facility] Medical History Diabetes Asthma Surgical History S/P laparoscopic cholecystectomy History of esophagogastroduodenoscopy (EGD) Family History Mother Diabetes Hypertension Social History Household Members: Family Housing: Apartment Do you presently have visiting nurse or other home services: No Alcohol intake: never Patient Tobacco Use Status: Never used Tobacco service: No Current occupational status: unemployed Female Reproductive History Menstrual Age of Menarche: 11 Duration of menses: <3 days control method: implanted Total pregnancies: 0 Full term: 0 History of abnormal pap smear: No (no previous pap) Physical Exam Vital Signs: Last Vital Signs BP 126/70 10/16/23 13:57 BMI result Body Mass Index 40.4 Const Other: Nexplanon palpable in patient's left arm states it was put in there a year ago more on the 2nd floor of the [facility]. General: healthy appearing, comfortable, no acute distress, well developed and alert Nutritional Appearance: average body habitus and obese Orientation/consciousness: patient oriented x3 Limitations: no limitations and other limitations HEENT Head: Yes normocephalic Neck Neck: Yes normal visual inspection Chest Chest palpation & inspection: normal inspection of the chest Breast/axilla inspection: normal inspection of the breasts, normal inspection of the axillae and Other (Appear not fully developed.) Breast/axilla palpation: normal palpation of the breasts and normal palpation of the axillae Resp Effort & Inspection: normal respiratory effort GI Inspection: Yes normal to inspection, No Abdominal wall edema and No distended Palpation (GI): Soft to palpation and nontender Other: Gentle exam done with Deidre speculum vagina pink moist cervix tiny nulliparous mobile nontender unable to palpate uterus secondary to adipose and Patient not able to perform a Kegel. External Female Exam: normal external appearance and normal appearance of the urethra Speculum Exam - Vagina: normal appearance of the vagina, normal palpation and normal vaginal discharge Speculum Exam - Cervix: normal appearance of the cervix, normal palpation and nontender Bimanual exam- vagina & uterus: normal palpation, normal palpation, No Cervical tenderness present and no cervical motion tenderness Bimanual Exam- Adnexa, other: normal adnexae, No normal (Was not able to coordinate a Kegel. Information and clear description give) and No adnexal tenderness Neuro General: patient oriented x3 Assessment & Plan Assessment & Plan (1) Diabetes: Comment: taking Metformin, Ozempic & Tresiba Insulin Code(s): E11.9 - Type 2 diabetes mellitus without complications (2) Cervical cancer screening: Code(s): Z12.4 - Encounter for screening for malignant neoplasm of cervix (3) Women's annual routine gynecological examination: Code(s): Z01.419 - Encounter for gynecological examination (general) (routine) without abnormal findings (4) Encounter for screening examination for sexually transmitted disease: Code(s): Z11.3 - Encounter for screening for infections with a predominantly sexual mode of transmission (5) Pelvic floor weakness: Code(s): N81.89 - Other female genital prolapse Plan 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 She said she did not remember too many details but gradually through the visit more details were shared she has been sexually active but it was 2 or 2 and half years ago and she has not sexually active now she lives with her mother. She has not actively involved in the weight management program anymore and she says been a long time. She has gained weight since her last visit with them. Her primary care provider is here at the [facility] she is diabetic. She is waiting to see she and her mom can go to [email or web address] but there is something they are waiting on her mother has a painful leg currently and was walking with a limp. Patient states she has not sexually active anymore and not planning to be she has a Nexplanon that was inserted about a year ago she says she does not the does not let her get her. Though I did 1 is very overweight sometimes that prevents somebody from getting there. As well. During the visit her mother received a phone call from the daughter protective services social worker and the daughter spoke with her during the visit. Pap smear was done testing for STIs was done during the pelvic exam and offered for as blood work and the patient discussed it with her mother and they agreed that she will do it some day order placed in the system. Safety around sex discussed. She currently lives with her mom. Discussed trying to eat as healthy as she can for her health and for weight and 2 have better control of her blood sugar. Discussed moving more in general and exercising in easy ways in the house maybe dancing with music. Orders: Orders Pap Smear Today Z01.419 - Encounter for gynecological examination (general) (routine) without abnormal findings Bacterial Vaginosis Panel Today Z20.2 - Contact with and (suspected) exposure to infections with a predominantly sexual mode of transmission Hepatitis B Surface Antigen Today E11.9 - Type 2 diabetes mellitus without complications, N81.89 - Other female genital prolapse, Z01.419 - Encounter for gynecological examination (general) (routine) without abnormal findings, Z11.3 - Encounter for screening for infections with a predominantly sexual mode of transmission, Z12.4 - Encounter for screening for malignant neoplasm of cervix HIV Ab/Ag Today E11.9 - Type 2 diabetes mellitus without complications, N81.89 - Other female genital prolapse, Z01.419 - Encounter for gynecological examination (general) (routine) without abnormal findings, Z11.3 - Encounter for screening for infections with a predominantly sexual mode of transmission, Z12.4 - Encounter for screening for malignant neoplasm of cervix CT NG by PCR Today Z01.419 - Encounter for gynecological examination (general) (routine) without abnormal findings Hepatitis C Antibody Today E11.9 - Type 2 diabetes mellitus without complications, N81.89 - Other female genital prolapse, Z01.419 - Encounter for gynecological examination (general) (routine) without abnormal findings, Z11.3 - Encounter for screening for infections with a predominantly sexual mode of transmission, Z12.4 - Encounter for screening for malignant neoplasm of cervix Syphilis Screen Today E11.9 - Type 2 diabetes mellitus without complications, N81.89 - Other female genital prolapse, Z01.419 - Encounter for gynecological examination (general) (routine) without abnormal findings, Z11.3 - Encounter for screening for infections with a predominantly sexual mode of transmission, Z12.4 - Encounter for screening for malignant neoplasm of cervix Coding Level of Care Code New Pt Prev Care 18-39yr([id number] Diagnoses Diabetes E11.9 Cervical cancer screening Z12.4 Women's annual routine gynecological examination Z01.419 Encounter for screening examination for sexually transmitted disease Z11.3 Pelvic floor weakness N81.89
--- OUTSIDE RECORDS SUMMARY | 2023-10-16 13:33 | XMS_ITS | Continuity of Care Document ---
Author Name Unknown Organization [facility] Address [address] [place] [address]- Care Team Providers Care Personal Driver Name Role Phone Veronica Jones MD Primary Care Physician Unav ailable Encounter [facility] [place] Date(s): 02/27/23 - 06/05/23 [facility] [address] [place] [address]- Attending Physician: Not on Staff, Attending MD Allergies, Adverse Reactions, Alerts No Known Allergies Medications FreeStyle Maggie 2 Sensors See Instructions, # 3 each, Refills 11, Tot. Refills 11, Maintenance, use to monitor blood sugars for diabetes mellitus, 02/25/23 15:44:00 EDT, Supply, 148, cm, 03/29/22 11:32:00 EDT, Height, 80.2, kg, 03/29/22 11:32:00 EDT, Dry Weight Start Date: 02/25/23 Status: Ordered Freestyle Lite Lancets See Instructions, # 200 each, Refills 11, Tot. Refills 11, Maintenance, IDDM. Use to check blood sugars 6x/day, 03/29/22 12:44:00 EDT, Compound, 148, cm, 03/29/22 11:32:00 EDT, Height, 80.2, kg, 03/29/22 11:32:00 EDT, Dry Weight Start Date: 03/29/22 Status: Ordered Freestyle Lite Monitor See Instructions, # 2 each, Refills 5, Tot. Refills 5, Maintenance, IDDM. Use to check blood sugar.One for home and one for school, 03/29/22 12:44:00 EDT, Compound, 148, cm, 03/29/22 11:32:00 EDT, Height, 80.2, kg, 03/29/22 11:32:00 EDT, Dry Weight Start Date: 03/29/22 Stop Date: 09/25/22 Status: Ordered Freestyle Lite Test Strips See Instructions, # 200 each, Refills 11, Tot. Refills 11, Maintenance, IDDM. Use to check blood sugar 6x/day, 03/29/22 12:44:00 EDT, Murphy, 148, cm, 03/29/22 11:32:00 EDT, Height, 80.2, kg, 03/29/22 11:32:00 EDT, Dry Weight Start Date: 03/29/22 Status: Ordered metFORMIN 500 mg oral tablet, extended release 2 tablet = 1,000 mg, By Mouth, 2 times a day, # 120 tablet, 11 Refills, Maintenance, 04/01/22 15:17:00 EDT, ER Tablet, [facility]/pharmacy #[id number], Partial fill upon patient request if the prescription is fora schedule II opioid drug., 148, cm, 03/29/22 11:32... Start Date: 04/01/22 Status: Ordered metFORMIN 500 mg oral tablet, extended release 2 tablet = 1,000 mg, By Mouth, 2 times a day, Please provide 3 month supply with next refill (family will be out of country until end of January), # 360 tablet, 5 Refills, Maintenance, 03/29/22 12:04:00EDT, ER Tablet, [facility]/pharmacy #[id number], 148 cm, ... Start Date: 03/29/22 Stop Date: 09/25/22 Status: Ordered Ozempic 2 mg/1.5 mL (0.25 mg or 0.5 mg dose) subcutaneous solution = 0.5 mg, Subcutaneous Infusion, Every Friday, # 1.5 mL, 2 Refills, Maintenance, 02/27/23 15:07:00 EDT, [facility]/pharmacy #[id number], Partial fill upon patient request if the prescription is for a schedule II opioid drug., 0.5 mg Subcutaneous Infusion Every... Start Date: 02/27/23 Status: Ordered Pen [place], 32 G x 4 mm BD Ultra Fine III See instructions, # 200 each, Refills 5, Tot. Refills 5, Maintenance, use as directed for Type 2 Diabetes Mellitus to administer insulin daily, 11/16/21 14:41:00 EDT, Murphy, 148 cm, 09/14/21 8:50:00 EST, Height, 95.6, kg, 08/17/21 13:04:00 EST, . Start Date: 11/16/21 Stop Date: 05/15/22 Status: Ordered Tresiba FlexTouch 100 units/mL subcutaneous solution See Instructions, Subcutaneous Infusion Daily 30 u, # 15 mL, 5 Refills, Maintenance, 02/27/23 15:07:00 EDT, [id number], 148, cm, 03/29/22 11:32:00 EDT, Height, 80.2, kg, 03/29/22 11:32:00 EDT, Dry Weight Start Date: 02/27/23 Status: Ordered Problem List Condition Confirmation Course Effective Dates Status H ealth Status Informant Hyperandrogenism Confirmed Active Type 2 diabetes mellitus in patient 13 to 19 years of age with hemoglobin A1c goal of less than 7.5% Confirmed Active Morbid obesity Confirmed Active Obese class II Confirmed Active Patient Care team information Care Team Related Persons Name: CONNOLLY, MAMTA Address: home [address] [place] [phone]
--- OUTSIDE RECORDS SUMMARY | 2023-10-16 13:33 | XMS_ITS | Continuity of Care Document ---
Author Name Unknown Organization [facility] Address [address] [place] [address]- Care Team Providers Care Nitrate Operator Name Role Phone Karen HUYNH, Veronica Primary Care Physician Unav ailable Encounter [facility] Date(s): 09/11/23 - 10/11/23 [facility] [address] [place] [phone]- Attending Physician: Toribio Guajardo Admitting Physician: AdmtrToribio Referring Physician: Admtr, Ar8 Allergies, Adverse Reactions, Alerts No Known Allergies [...] check blood sugar 6x/day, 03/29/22 12:44:00 EDT, Compound, 148, cm, 03/29/22 11:32:00 EDT, Height, 80.2, kg, 03/29/22 11:32:00 EDT, Dry Weight Start Date: 03/29/22 Status: Ordered metFORMIN 500 mg oral tablet, extended release 2 tablet = 1,000 mg, By Mouth, 2 times a day, # 120 tablet, 11 Refills, Maintenance, 04/01/22 15:17:00 EDT, ER Tablet, [facility]/pharmacy #[id number], Partial fill upon patient request if [...] 5 Refills, Maintenance, 03/29/22 12:04:00EDT, ER Tablet, [facility]/pharmacy #[id number], 148, cm, ... Start Date: 03/29/22 Stop Date: 09/25/22 Status: Ordered Pen [place], 32 G x 4 mm BD Ultra [...] Dry Weight Start Date: 02/27/23 Status: Ordered Trulicity Pen 0.75 mg/0.5 mL subcutaneous solution 0.5 mL = 0.75 mg, Subcutaneous Injection, Every week, rotate injection sites, # 2 mL, 3 Refills, Maintenance, 09/30/23 15:07:00 EST, Solution, [id number], Partial fill upon patient request ifthe prescription is for a schedule II opioid drug.,... Start Date: 09/30/23 Status: Ordered Problem List Condition Confirmation Course Effective Dates Status H ealth Status Informant Hyperandrogenism Confirmed Active Type 2 diabetes mellitus in patient 13 to 19 years of age with hemoglobin A1c goal of less than 7.5% Confirmed Active Morbid obesity Confirmed Active Type 2 diabetes mellitus Confirmed Active Patient Care team information Care Team Related Persons Name: MAMTA CONNOLLY Address: home [address] [place] [phone]
--- OUTSIDE RECORDS SUMMARY | 2023-10-16 13:33 | XMS_ITS | Continuity of Care Document ---
Author Name Unknown Organization [facility] Address [address] [place] [phone]- Care Team Providers Care Forest Science Professor Name Role Phone Veronica Jones MD Primary Care Physician [phone] [place] [facility] Date(s): 04/17/22 - 08/15/22 [facility] [address] [place] [phone]- Attending Physician: Cristiana De La Torre MD Admitting Physician: Cristiana De La Torre MD Referring Physician: Rikki Duran MD Allergies, Adverse Reactions, Alerts No Known Allergies Medications FreeStyle Maggie 2 Sensors See Instructions, # 3 each, Refills 11, Tot. Refills 11, Maintenance, use to monitor blood sugars for diabetes mellitus, 03/29/22 12:04:00 EDT, Supply, 148, cm, 03/29/22 11:32:00 EDT, Height, 80.2, kg, 03/29/22 11:32:00 EDT, Dry Weight Start Date: 03/29/22 Status: Ordered Freestyle Lite Lancets See Instructions, [...] Refills, Maintenance, 04/01/22 15:17:00 EDT, ER Tablet, [facility]/pharmacy #[id number], Partial fill upon patient [...] 5 Refills, Maintenance, 03/29/22 12:04:00EDT, ER Tablet, [facility]/pharmacy #[id number], 148, cm, ... Start Date: 03/29/22 Stop Date: 09/25/22 Status: Ordered Ozempic 2 mg/1.5 mL (0.25 mg or 0.5 mg dose) subcutaneous solution = 0.5 mg, Subcutaneous Infusion, Every Friday, # 1.5 mL, 5 Refills, Maintenance, 03/29/22 12:04:00 EDT, [id number], Partial fill upon patient request if the prescription is for a schedule II opioid drug., 0.5 mg Subcutaneous Infusion Every... Start Date: 03/29/22 Status: Ordered Pen [place], 32 G x 4 mm BD Ultra Fine III See instructions, # 200 each, Refills 5, Tot. Refills 5, Maintenance, use as directed for Type 2 Diabetes Mellitus to administer insulin daily, 11/16/21 14:41:00 EDT, Compound, 148, cm, 09/14/21 8:50:00 EST, Height, 95.6, kg, 08/17/21 13:04:00 EST, DrCaroline.. Start Date: 11/16/21 Stop Date: 05/15/22 Status: Ordered Tresiba FlexTouch 100 units/mL subcutaneous solution = 80 units, Subcutaneous Infusion, Daily, patient is leaving country for 3 mo please give 3 mo supply, # 45 mL, 5 Refills, Maintenance, 11/16/21 14:41:00 EDT, [id number], 148, cm, 09/14/21 8:50:00 EST, Height, 95.6, kg, 08/17/21 13:04:00 EST,... Start Date: 11/16/21 Stop Date: 05/15/22 Status: Ordered Problem List Condition Confirmation Course Effective Dates Status H ealth Status Informant Hyperandrogenism Confirmed Active Type 2 diabetes mellitus in patient 13 to 19 years of age with hemoglobin A1c goal of less than 7.5% Confirmed Active Morbid obesity Confirmed Active Obese class II Confirmed Active Patient Care team information Care Team Personnel Name: Veronica Jones MD Position: [facility] Outreach Member Role: PCP Address: Address: [place] [address]- Care Team Related Persons Name: MAMTA CONNOLLY Address: home [address] [address]
--- OUTSIDE RECORDS SUMMARY | 2023-10-16 13:33 | XMS_ITS | Continuity of Care Document ---
Author Name Unknown Organization [facility] Address [address] [place] [address]- Care Team Providers Care Roentgenologist Name Role Phone Karen HUYNH, Veronica Primary Care Physician Unav ailable Encounter [facility] Date(s): 10/19/22 - 02/16/23 [facility] [address] [place] [phone]- Attending Physician: Not on Staff, Attending MD Allergies, Adverse Reactions, Alerts No Known Allergies Medications FreeStyle Maggie 2 Sensors See Instructions, # 3 each, Refills 11, Tot. Refills 11, Maintenance, use to monitor blood sugars for diabetes mellitus, 09/26/22 10:54:00 EST, Supply, 148, cm, 03/29/22 11:32:00 EDT, Height, 80.2, kg, 03/29/22 11:32:00 EDT, Dry Weight Start Date: 09/26/22 Status: Ordered Freestyle Lite Lancets See Instructions, [...] Refills, Maintenance, 04/01/22 15:17:00 EDT, ER Tablet, [facility]/pharmacy #[id number], Partial fill upon patient request if [...] 5 Refills, Maintenance, 03/29/22 12:04:00EDT, ER Tablet, [facility]/pharmacy #[id number], 148, cm, ... Start Date: 03/29/22 Stop Date: 09/25/22 Status: Ordered Ozempic 2 mg/1.5 mL (0.25 mg or 0.5 mg dose) subcutaneous solution = 0.5 mg, Subcutaneous Infusion, Every Friday, # 1.5 mL, 5 Refills, Maintenance, 03/29/22 12:04:00 EDT, [facility]/pharmacy #[id number], Partial fill upon patient request if the prescription is for a schedule II opioid drug., 0.5 mg Subcutaneous Infusion Every... Start Date: 03/29/22 Status: Ordered Pen [place], 32 G x 4 mm BD Ultra [...] u, # 15 mL, 5 Refills, Maintenance, 11/26/22 15:26:00 EDT, [id number], 148, cm, 03/29/22 11:32:00 EDT, Height, 80.2, kg, 03/29/22 11:32:00 EDT, Dry Weight Start Date: 11/26/22 Status: Ordered Problem List Condition Confirmation Course Effective Dates Status H ealt Status Informant Hyperandrogenism Confirmed Active Type 2 diabetes mellitus in patient 13 to 19 years of age with hemoglobin A1c goal of less than 7.5% Confirmed Active Morbid obesity Confirmed Active Obese class II Confirmed Active Patient Care team information Care Team Related Persons Name: MAMTA CONNOLLY Address: home [address] [place] [id number]
--- OUTSIDE RECORDS SUMMARY | 2023-10-16 13:33 | XMS_ITS | Continuity of Care Document ---
Author Name Unknown Organization [facility] Address [address] [place] [address]- Care Team Providers Care Hardware Test Engineer Name Role Phone Veronica Jones MD Primary Care Physician [place] [facility] [place] 07/07/22 [facility] [address] [place] [phone]- Attending Physician: Not on Staff, Attending MD [...] Refills, Maintenance, 04/01/22 15:17:00 EDT, ER Tablet, [facility]/pharmacy #[id number], Partial fill upon patient request if [...] 5 Refills, Maintenance, 03/29/22 12:04:00EDT, ER Tablet, [facility]/pharmacy #[id number], 148, cm, ... Start Date: 03/29/22 [...] Every... Start Date: 03/29/22 Status: Ordered Pen [place], 32 G x 4 mm BD Ultra Fine III See instructions, # 200 each, Refills 5, Tot. Refills 5, Maintenance, use as directed for Type 2 Diabetes Mellitus to administer insulin daily, 11/16/21 14:41:00 EDT, Compound, 148, cm, 09/14/21 8:50:00 EST, Height, 95.6, kg, 08/17/21 13:04:00 EST, DrItz Start Date: 11/16/21 Stop Date: 05/15/22 Status: [...] II Confirmed Active Patient Care team information Personnel Name: Veronica Jones MD Address: Address: [place], [place] [address]
--- OUTSIDE RECORDS SUMMARY | 2023-10-16 13:33 | XMS_ITS | Continuity of Care Document ---
Author Name Unknown Organization [facility] nd[facility] Address [address] [place] [address]- Care Team Providers Care Warehouse Person Name Role Phone Karen HUYNH, Veronica Primary Care Physician Unav ailable Encounter [facility] Date(s): 01/17/23 - 02/16/23 [facility] [address] [place] [phone]- Attending Physician: Toribio Guajardo Admitting Physician: AdmtrToribio [...] Refills, Maintenance, 04/01/22 15:17:00 EDT, ER Tablet, [facility]/pharmacy #[id number], Partial fill upon patient request [...] 5 Refills, Maintenance, 03/29/22 12:04:00EDT, ER Tablet, [facility]/pharmacy #[id number], 148, cm, ... Start Date: 03/29/22 Stop Date: 09/25/22 Status: Ordered Ozempic 2 mg/1.5 mL (0.25 mg or 0.5 mg dose) subcutaneous solution = 0.5 mg, Subcutaneous Infusion, Every Friday, # 1.5 mL, 5 Refills, Maintenance, 03/29/22 12:04:00 EDT, [facility]/pharmacy #[id number], Partial fill upon patient request if the prescription is for a schedule II opioid drug., 0.5 mg Subcutaneous Infusion Every... Start Date: 03/29/22 Status: Ordered Pen [place], 32 G x 4 mm BD Ultra [...] Related Persons Name: MAMTA CONNOLLY Address: home [address] [place] [id number]
--- OUTSIDE RECORDS SUMMARY | 2023-10-16 13:34 | XMS_ITS | Continuity of Care Document ---
Author Name Unknown Organization [facility] Address [address] [place] [address]- Care Team Providers Care [place] Assessor Name Role Phone Karen HUYNH, Veronica Primary Care Physician Unav ailable Encounter [facility] Date(s): 06/19/23 - 09/20/23 [facility] [address] [place] [id number]- Attending Physician: Jony Vuong MD Admitting Physician: Jony Vuong MD Referring Physician: Veronica Jones MD Allergies, Adverse Reactions, Alerts No Known [...] Refills, Maintenance, 04/01/22 15:17:00 EDT, ER Tablet, [facility]/pharmacy #[id number], Partial fill upon patient [...] january), # 360 tablet, 5 Refills, Maintenance, 03/29/22 12:04:00EDT, ER Tablet, [facility]/pharmacy #[id number], 148, cm, ... Start Date: 03/29/22 Stop Date: 09/25/22 Status: Ordered Ozempic (1 mg dose) 4 mg/3 mL subcutaneous solution = 1 mg, Subcutaneous Injection, Every week, # 3 mL, 2 Refills, Maintenance, 06/17/23 15:01:00 EDT, Solution, [facility]/pharmacy #[id number], Partial fill upon patient request if the prescription is for a schedule II opioid drug., 148.5, cm, 06/17/23 11:22:00 EDT,... Start Date: 06/17/23 Status: Ordered Pen [place], 32 G x 4 mm BD Ultra Fine III See instructions, # 200 each, Refills 5, Tot. Refills 5, Maintenance, use as directed for Type 2 Diabetes Mellitus to administer insulin daily, 11/16/21 14:41:00 EDT, Compound, 148, cm, 09/14/21 8:50:00 EST, Height, 95.6, kg, 08/17/21 13:04:00 EST, Start Date: 11/16/21 Stop Date: 05/15/22 Status: Ordered semaglutide 0.5 mg/0.5 mL (0.5 mg dose) subcutaneous solution = 0.5 mg, Subcutaneous Injection, Every week, for 4 week(s), in the abdomen, thigh, or upper arm, #2 mL, 0 Refills, Acute 10/09/23 16:41:00 EST, 09/11/23 16:41:00 EST, Solution, [id number], Partial fill upon patient request if the prescriptio... Start Date: 09/11/23 Stop Date: 10/09/23 Status: Ordered Tresiba FlexTouch 100 units/mL subcutaneous [...] Related Persons Name: MAMTA CONNOLLY Address: home [address] [place] [id number]
--- OUTSIDE RECORDS SUMMARY | 2023-10-16 13:34 | XMS_ITS | Continuity of Care Document ---
Author Name Unknown Organization [facility] Address [address] [place] [id number]- Care Team Providers Care [place] Alderman Name Role Phone Veronica Jones MD Primary Care Physician [place] [facility] 07[place]16[place]22 - 08/15/22 [facility] [address] [place] [address]- Attending Physician: Admtr, [id number] Admitting Physician: Admtr, [id number] Referring Physician: Admtr, [...] Refills, Maintenance, 04/01/22 15:17:00 EDT, ER Tablet, [facility]/pharmacy #[id number], Partial fill upon patient [...] 5 Refills, Maintenance, 03/29/22 12:04:00EDT, ER Tablet, [id number], 148, cm, ... Start Date: 03/29/22 [...] Every... Start Date: 03/29/22 Status: Ordered Pen [place], 32 G x 4 mm BD Ultra Fine III See instructions, # 200 each, Refills 5, Tot. Refills 5, Maintenance, use as directed for Type 2 Diabetes Mellitus to administer insulin daily, 11/16/21 14:41:00 EDT, Compound, 148, cm, 09/14/21 8:50:00 EST, Height, 95.6, kg, 08/17/21 13:04:00 EST, DrCaroline.Caroline Start Date: 11/16/21 Stop Date: 05/15/22 Status: [...] Team Personnel Name: Veronica Jones MD Position: [facility] Outreach Member Role: PCP Address: Address: [place] [address]- Care Team Related Persons Name: MAMTA CONNOLLY Address: home [address] [address]
--- OUTSIDE RECORDS SUMMARY | 2023-10-16 13:34 | XMS_ITS | Continuity of Care Document ---
Author Name Unknown Organization [facility] Address [address] [place] [address]- Care Team Providers Care Lap Grinder Name Role Phone Veronica Jones MD Primary Care Physician Encounter [facility] [place] Date(s): 09/24/22 - 10/24/22 [facility] [address] [place] [address]- Allergies, Adverse Reactions, Alerts No Known Allergies [...] Refills, Maintenance, 04/01/22 15:17:00 EDT, ER Tablet, [facility]/pharmacy #[id number], Partial fill upon patient request [...] 5 Refills, Maintenance, 03/29/22 12:04:00EDT, ER Tablet, [facility]/pharmacy #[id number], 148, cm, ... Start Date: 03/29/22 Stop Date: 09/25/22 Status: Ordered Ozempic 2 mg/1.5 mL (0.25 mg or 0.5 mg dose) subcutaneous solution = 0.5 mg, Subcutaneous Infusion, Every Friday, # 1.5 mL, 5 Refills, Maintenance, 03/29/22 12:04:00 EDT, [facility]/pharmacy #[id number], Partial fill upon patient request if the prescription is for a schedule II opioid drug., 0.5 mg Subcutaneous Infusion Every... Start Date: 03/29/22 Status: Ordered Pen [place], 32 G x 4 mm BD Ultra [...] mL, 5 Refills, Maintenance, 11/16/21 14:41:00 EDT, [facility]/pharmacy #[id number], 148, cm, 09/14/21 8:50:00 EST, Height, [...] Team Personnel Name: Veronica Jones MD Position: [facility] Outreach Member Role: PCP Address: Address: [place] [address]- Care Team Related Persons Name: MAMTA CONNOLLY Address: [address] [address]
--- OUTSIDE RECORDS SUMMARY | 2023-10-16 13:34 | XMS_ITS | Continuity of Care Document ---
Author Name Unknown Organization [facility] Address [address] [place] [address]- Care Team Providers Care Senior It Project Manager Name Role Phone Karen HUYNH, Veronica Primary Care Physician Unav ailable Encounter [facility] Date(s): 02/27/23 - 03/29/23 [facility] [address] [place] [address]- Allergies, Adverse Reactions, Alerts No Known Allergies [...] Refills, Maintenance, 04/01/22 15:17:00 EDT, ER Tablet, [facility]/pharmacy #[id number], Partial fill upon patient request if the prescription is fora schedule II opioid drug., 148 cm, 03/29/22 11:32... Start Date: 04/01/22 Status: Ordered metFORMIN 500 mg oral tablet, extended release 2 tablet = 1,000 mg, By Mouth, 2 times a day, Please provide 3 month supply with next refill (family will be [place] of country until end of January), # 360 tablet, 5 Refills, Maintenance, 03/29/22 12:04:00EDT, ER Tablet, [facility]/pharmacy #[id number], 148 cm, ... Start Date: 03/29/22 Stop Date: 09/25/22 Status: Ordered Ozempic 2 mg/1.5 mL (0.25 mg or 0.5 mg dose) subcutaneous solution = 0.5 mg, Subcutaneous Infusion, Every Friday, # 1.5 mL, 2 Refills, Maintenance, 02/27/23 15:07:00 EDT, [id number], Partial fill upon patient request if the prescription is for a schedule II opioid drug., 0.5 mg Subcutaneous Infusion Every... Start Date: 02/27/23 Status: Ordered Pen [place], 32 G x 4 mm BD Ultra [...] Related Persons Name: MAMTA CONNOLLY Address: home [address] [place] [id number]
[2023-10-16 13:57] VITALS: BP 126/70; BMI 40.4
== END 2023-10-16 14:48 | disposition home or self-care (01) ==
LOC: HO.HWSM 13:31
PROVIDERS: PCP Nurse Practitioner Primary Care; Referring Provider Nurse Practitioner Primary Care; Visit Provider Advanced Practice Midwife
DX: Z01.419 Encounter for gynecological examination (general) (routine) without abnormal findings (principal); E11.9 Type 2 diabetes mellitus without complications; N81.89 Other female genital prolapse
CPT/HCPCS: G0101; Q0091

== ENCOUNTER 2023-11-05 09:33 | Outpatient (AMB) | payer MEDICARE, MEDICAID, SELFPAY ==
--- NOTE | 2023-11-05 10:19 | MHC.OFFVIS ---
Intake Vital Signs 11/05/23 10:34 Height 4 ft 11 in Weight 198 lb 2 oz BMI 40.0 BP 122/80 Blood Pressure Location Lt brachial Position Sitting Pulse 98 Pulse Source Pulse Oximeter Pulse Oximetry (%) 97 Oxygen Delivery Method Room Air Intake Visit Reasons: ENP-JUAN RAMON - CONF w/address Intake Note: Patient presents for JUAN RAMON. Loud snoring and wakes up gasping for air. Went to [facility] 6 months ago and did in lab sleep study and the results were she needed a CPAP machine. Never got a phone call or answer were the machine was to be picked up. Then it became a insurance issue. [facility] told her they were waiting on PA from [employer]. Allergies No Known Allergies [No Known Allergies*] Allergy (Verified 11/05/23 10:32) HPI HPI Comments History of Present Illness Details 23 y/o female patient presents with her mother for new in-person visit to manage sleep apnea. Pt's mother reports that patient was diagnosed with JUAN RAMON about an year ago. However, patient could not treated with CPAP. Pt's mother states that there was an insurance issue for prior authorization and could not have CPAP. Pt continues to experiences loud snoring, gasping, and excessive daytime sleepiness. Sleep questionnaire: Have you ever been diagnosed with a sleep disorder? Yes, JUAN RAMON. Have you ever had a sleep study in the past? Yes about an year ago. Have you ever been treated for a sleep disorder? No. Do you take medications for a sleep disorder? No. Do you snore? Yes. Do you wake up gasping at night? Yes Do you have episodes of apneas? Yes. If yes, are they witnessed? Yes Do you have episodes of nocturnal chest pain or dyspnea? No. Do you have difficulty initiating sleep? No. Do you have difficulty maintaining sleep? No. Do you wake up tired? Yes. Do you have headaches upon awakening? No. Do you wake up with dry mouth or throat? No. Do you have GERD? Yes/ Do you have nocturia? Yes. Do you have nocturnal leg cramps? No. Do you have symptoms of restless legs? No. Do you act out your dreams? No. Sleep hygiene questionnaire: What is your usual sleep routine? Usual bedtime is at 2-3 am; Usual wake up time is at 5-6 pm. Do you take naps? No. Is your sleep environment cool, dark, and quiet? Yes. Do you exercise? No. Do you take caffeine or other stimulants? Do you use electronics in bed? Yes. What is your work schedule? N/A Hypersomnolence questionnaire: Do you have daytime tiredness or fatigue? Yes Do you easily fall asleep when inactive? Yes. Have you ever had episodes of sudden weakness? No. Have you ever had episodes of sudden weakness associated with strong emotions? No. PFSH Medical History Diabetes Asthma Surgical History S/P laparoscopic cholecystectomy History of esophagogastroduodenoscopy (EGD) Family History Mother Diabetes Hypertension Social History Household Members: Family Housing: Apartment Do you presently have visiting nurse or other home services: No Alcohol intake: never Patient Tobacco Use Status: Never used Tobacco service: No Current occupational status: unemployed Female Reproductive History Menstrual Age of Menarche: 11 Review of Systems Const All systems reviewed & are unremarkable except as noted in HPI and below Physical Exam Vital Signs: Last Vital Signs Pulse 98 11/05/23 10:34 BP 122/80 11/05/23 10:34 Pulse Ox 97 11/05/23 10:34 Oxygen Delivery Method Room Air 11/05/23 10:34 BMI result Body Mass Index 40.0 Const General: cooperative and tired appearing Nutritional Appearance: obese Orientation/consciousness: patient oriented x3 Neck Neck: Yes full ROM and Yes supple Resp Effort & Inspection: normal respiratory effort and able to speak in complete sentences Neuro General: patient oriented x3 and gait normal Gait exam (Neuro): Normal gait present Motor exam (neuro): 5/5 motor strength present throughout Psych Appearance: grossly normal Mental Status: mental status grossly normal Speech and movement: Normal speech and movement present Affect: normal affect Attitude: cooperative Assessment & Plan Assessment & Plan (1) JUAN RAMON (obstructive sleep apnea): Code(s): G47.33 - Obstructive sleep apnea (adult) (pediatric) (2) Daytime sleepiness: Code(s): R40.0 - Somnolence (3) Obesity, Class III, BMI 40-49.9 (morbid obesity): Code(s): E66.01 - Morbid (severe) obesity due to excess calories Plan Pt is advised to undergo in lab sleep study to assess for sleep apnea. Will f/u with pt after study to discuss results and appropriate treatment options. Sleep hygiene education provided, limit electronic use before bedtime, increase physical activities during daytime. Pt to call with any worsening concerns or questions. Orders: Orders RT PSG in-lab sleep study Today E66.01 - Morbid (severe) obesity due to excess calories, G47.33 - Obstructive sleep apnea (adult) (pediatric), R40.0 - Somnolence Coding Level of Care Code New Pt Level 3 (37983) Diagnoses JUAN RAMON (obstructive sleep apnea) G47.33 Daytime sleepiness R40.0 Obesity, Class III, BMI 40-49.9 (morbid obesity) E66.01
[2023-11-05 10:34] VITALS: BP 122/80; PULSE 98; O2SAT 97; BMI 40.0
== END 2023-11-05 11:00 | disposition home or self-care (01) ==
PROVIDERS: PCP Nurse Practitioner Primary Care; Visit Provider Nurse Practitioner Family
DX: G47.33 Obstructive sleep apnea (adult) (pediatric) (principal); R40.0 Somnolence; E66.01 Morbid (severe) obesity due to excess calories
CPT/HCPCS: 99203

== ENCOUNTER → 2023-11-05 09:33 | Outpatient (BNVA) | payer MEDICARE, MEDICAID, SELFPAY | PROVIDERS: PCP Nurse Practitioner Primary Care; Visit Provider Nurse Practitioner Family | DX: G47.33 Obstructive sleep apnea (adult) (pediatric) (principal); R40.0 Somnolence; E66.01 Morbid (severe) obesity due to excess calories; Z68.41 Body mass index [BMI] 40.0-44.9, adult | CPT/HCPCS: 99202 ==

== ENCOUNTER → 2023-12-04 20:30 | Outpatient (REF) | payer MEDICARE, MEDICAID, SELFPAY | LOC: HO.SL 20:30 | PROVIDERS: PCP Nurse Practitioner Primary Care; Visit Provider Nurse Practitioner Family | DX: G47.33 Obstructive sleep apnea (adult) (pediatric) (principal); R40.0 Somnolence; E66.01 Morbid (severe) obesity due to excess calories | CPT/HCPCS: 95810 ==

== ENCOUNTER → 2023-12-05 01:00 | Outpatient (BNV) | payer MEDICARE, MEDICAID, SELFPAY | PROVIDERS: PCP Nurse Practitioner Primary Care; Visit Provider Psychiatry & Neurology Neurology | DX: G47.33 Obstructive sleep apnea (adult) (pediatric) (principal) | CPT/HCPCS: 95810 ==

== ENCOUNTER 2024-02-17 07:46 | Emergency (ER) | payer MEDICARE, MEDICAID, SELFPAY ==
[2024-02-17 07:51] VITALS: BP 116/63; PULSE 97; RESP 18; TEMP 36.6; O2SAT 96; BMI 43.2
--- NOTE | 2024-02-17 08:08 | ED_ITS ---
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 due to patient's developmental delay, history obtained by mother at bedside. Mom states patient is 23 years old however has the mental capacity of a 7 year old. Mom states that patient had a nosebleed from her right nare this morning only lasting a few seconds. Reports some postnasal drip with blood in the mucus. De nies trauma/ injury. Mom reports patient recently recovered from influenza. Since this time she has had continued cough which keeps her up at night. Also reports bilateral eye itching. No morning crusting noted to eyes. Denies fever, chills, sore throat, sputum production, N/V. Related Data Home Medications ?Medication ?Instructions ?Recorded ?Confirmed insulin degludec 100 unit/mL (3 50 unit subcut DAILY@1900 06/08/22 10/16/23 mL) subcutaneous pen (Tresiba FlexTouch U-100 insulin) blood sugar diagnostic (FreeStyle #10 ea 08/09/22 10/16/23 Lite Strips) blood-glucose meter (FreeStyle #1 ea 08/09/22 10/16/23 Aurora Lite kit) lancets 33 gauge (TRUEplus Lancets) #100 ea 08/09/22 10/16/23 metformin 500 mg tablet,extended 500 mg PO BID 08/09/22 10/16/23 release 24 hr pen needle, diabetic 32 gauge x #50 ea 08/09/22 10/16/23 5/32 (Pentips) semaglutide 0.25 mg or 0.5 mg (2 0.25 mg subcut QWEEK 08/21/22 10/16/23 mg/1.5 mL) subcutaneous pen injector (Ozempic) etonogestrel 68 mg subdermal subdermal 10/16/23 10/16/23 implant (Nexplanon) Previous Rx's ?Medication ?Instructions ?Recorded omeprazole 20 mg capsule,delayed 20 mg PO DAILY 4 weeks #28 caps 12/19/22 release metronidazole 500 mg tablet 500 mg PO BID 7 days #14 tabs 10/17/23 benzonatate 100 mg capsule 100 mg PO BID PRN cough #20 caps 02/17/24 cetirizine 0.24 % eye drops in a 1 drp ophthalmic (eye) BID itching 02/17/24 dropperette 7 days #30 ea oxymetazoline 0.05 % nasal spray 2 spray intranasal ONCE nosebleed 02/17/24 (Afrin (oxymetazoline)) 3 days #15 mL Allergies Allergy/AdvReac Type Severity Reaction Status Date / Time No Known Allergies Allergy Verified 02/17/24 07:54 [No Known Allergies*] Review of Systems Review of Systems: Constitutional: No fever, chills, fatigue, night sweats, weight changes ENT/Mouth: No ear pain, hearing loss, nasal congestion, sinus pain, rhinorrhea, sore throat Eyes: No eye pain, swelling, redness, vision changes, discharge, +eye itching Cardio: No chest pain, palpitations, SIMON, orthopnea, peripheral edema Pulm: No SOB, cough, sputum, wheezing, dyspnea, hemoptysis, +cough GI: No nausea, vomiting, hematemesis, abdominal pain, diarrhea, constipation, hematochezia, melena : No irregular bleeding, dysuria, frequency, urgency, hesitancy, hematuria, flank pain, urinary flow changes, urinary incontinence or retention MSK: No back pain, neck pain, joint pain, myalgias Skin: No lesions, rashes Neuro: No weakness, numbness, paresthesias, LOC, dizziness, headache Psych: No anxiety/panic, depression, SI/HI, AH/VH All other systems reviewed and are negative. [facility] Past Medical History Attestation statement: The following information was validated with the patient. Source: old records reviewed and nursing notes reviewed Medical History Diabetes Asthma Surgical History S/P laparoscopic cholecystectomy History of esophagogastroduodenoscopy (EGD) Family History Family History Mother Diabetes Hypertension Social History Social History Household Members: Family Housing: Apartment Do you presently have visiting nurse or other home services: No Alcohol intake: never Patient Tobacco Use Status: Never used Tobacco service: No Current occupational status: unemployed Physical Exam ED Vital Signs: Vital Signs - 24 hr 02/17/24 07:51 02/17/24 08:29 Temperature 97.9 F 97.8 F Pulse Rate 97 95 Respiratory Rate 18 15 Blood Pressure 116/63 103/69 Pulse Oximetry 96 96 Oxygen Delivery Method Room Air Room Air BMI result Body Mass Index 43.2 Const General: cooperative, healthy appearing, comfortable and no acute distress HENMT Other: bilateral nares with excessive mucus. I did have patient blow her nose to expel the mucus. No blood noted to mucus. There is no active bleed noted to either nare. Posterior oropharynx WNL without noted blood. Head: Yes normal to inspection, Yes No palpable skull fracture present, Yes normocephalic and Yes atraumatic Eyes Other: minimal injection noted to bilateral conjunctiva. no crusting noted. General: appearance normal, both eyes and all related structures Neck Neck: Yes normal visual inspection, Yes full ROM and Yes no lymphadenopathy Resp Effort & Inspection: normal respiratory effort and able to speak in complete sentences Auscultation: clear to auscultation bilaterally Cardio Rate: regular rate Rhythm: regular rhythm Skin General skin exam: no rashes or lesions noted Course Course Course Narrative: 0910-- patient has tested negative for covid/flu/rsv/strep. No epistaxis noted during ED visit. exam consistent with viral conjunctivitis. will send certirizine drops to pharmacy. educated on warm/cold compresses. tessalon sent for cough. Patient has remained stable throughout ED visit today. Discussed worrisome signs and symptoms and when to return to the ED. All questions answered at this time. Patient and mother are agreeable with disposition and patient is stable for discharge. 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 vital signs stable. Afebrile. She is nontoxic-appearing and in no acute distress. On exam, bilateral nares with excessive mucus. I did have patient blow her nose to expel the mucus. No blood noted to mucous. There is no active bleed noted to either nare. Posterior oropharynx WNL without noted blood. Lungs are CTA bilaterally. No wheezes or rhonchi. Dry cough noted. No signs of respiratory distress. no tripoding. minimal injection noted to bilateral conjunctiva. no crusting noted. Differential diagnosis includes epistaxis, viral syndrome, asthma, viral conjunctivitis, allergic rhinitis Plan for serology, strep swab, re-evaluation. Differential Diagnosis Differential Diagnoses: The differential diagnosis associated with the presentation includes as above. Admission/Observation Not indicated Lab Data Labs: Lab Results 02/17/24 Range/Units 07:58 Influenza Type A (PCR) NEGATIVE (Negative) Influenza Type B (PCR) NEGATIVE (Negative) RSV RNA Qual (PCR) NEGATIVE (Negative) SARS-CoV-2 RNA (RT-PCR) NEGATIVE (Negative) S. pyogenes GrpA MARCIAL Negative (Negative) Independent Historian Clinical information obtained from an independent historian. History obtained from or confirmed by: Parent (mom) External Record Review External record reviewed: Inpatient record Social Determinants Patient?s care significantly limited by Social Determinants of Health including: Other Social Determinant of Health Critical Care Time Critical Care Time Critical Care Time: No Discharge Plan Discharge Clinical Impression: Acute viral conjunctivitis, Epistaxis Patient Disposition: Home, Self-Care Instructions: Nosebleed (ED), Conjunctivitis (ED) Additional Instructions: Opal was seen in the ED today for nose bleed and itchy eyes. She has tested negative for covid, flu, rsv, and strep throat. She has a viral eye infection. Cetirizine eye drops have been sent to the pharmacy for treatment. Put 1 drop in each eye twice daily for 7 days. Apply cold and warm compresses as needed. You do not currently have a nosebleed in the ED. There is no active bleed noted on your physical exam. Afrin nasal spray has been sent to your pharmacy. If you do began to bleed again, spray 2 sprays of Afrin nasal spray into the affected nostril and clamp closed for at least 20 minutes. Carlos Taylor have been sent to your pharmacy for you to take as needed for cough. Please follow-up with PCP. Return with new or worsening symptoms. In the case of an emergency call 911. Prescriptions: New cetirizine 0.24 % dropperette 1 drp ophthalmic (eye) BID 7 Days Qty: 30 0RF benzonatate 100 mg capsule 100 mg PO BID PRN (Reason: cough) Qty: 20 0RF oxymetazoline [Afrin (oxymetazoline)] 0.05 % spray,non-aerosol 2 spray intranasal ONCE 3 Days Qty: 15 0RF No Action omeprazole 20 mg capsule,delayed release(DR/EC) 20 mg PO DAILY 28 Days Qty: 28 1RF metronidazole 500 mg tablet 500 mg PO BID 7 Days Qty: 14 0RF insulin degludec [Tresiba FlexTouch U-100] 100 unit/mL (3 mL) insulin pen 50 unit subcut DAILY@1900 metformin 500 mg tablet extended release 24 hr 500 mg PO BID Ozempic 0.25 mg or 0.5 mg(2 mg/1.5 mL) pen injector 0.25 mg subcut QWEEK (DME) pen needle, diabetic [Pentips] 32 gauge x 5/32 needle See Rx Instructions .ROUTE .MEDSUPPLY Qty: 50 Rx Instructions: As directed (DME) lancets [TRUEplus Lancets] 33 gauge misc See Rx Instructions .ROUTE .MEDSUPPLY Qty: 100 Rx Instructions: As directed (DME) blood-glucose meter [FreeStyle Aurora Lite] Kit See Rx Instructions .ROUTE .MEDSUPPLY Qty: 1 Rx Instructions: As directed (DME) FreeStyle Lite Strips Strip See Rx Instructions .ROUTE .MEDSUPPLY Qty: 10 Rx Instructions: As directed Nexplanon 68 mg implant subdermal Referrals: Lacie Handley TRANSMITTER ENGINEER [Primary Care Provider] - Stand Alone Forms: Work/School Release Interventions: ED Discharge Assessment Last Done: 02/17/24 09:18 Discharge Date/Time: 02/17/24 09:18 Print Language: Gibraltarian
[2024-02-17 08:12] LABS: IDNOW Serial# 08D9AD1C; Strep A Nucleic Acid Negative (Negative)
--- OUTSIDE RECORDS SUMMARY | 2024-02-17 08:17 | XMS_ITS | Continuity of Care Document ---
Author Organization [facility] Address [address] [place] [address]- Care Team Providers Care Import/Export Agent Name Role Phone Karen HUYNH, Veronica Primary Care Physician Unav ailable [facility]counter [facility] Date[facility]s): 01/13/24 - 02/12/24 [facility] [address] [place] [address]- Allergies, Adverse Reactions, Alerts No Known Allergies [...] Refills, Maintenance, 04/01/22 15:17:00 EDT, ER Tablet, [facility]/pharmacy #[id number], Partial fill upon patient request [...] 5 Refills, Maintenance, 03/29/22 12:04:00EDT, ER Tablet, [facility]/pharmacy #[id number], 148, cm, ... Start Date: 03/29/22 Stop Date: 09/25/22 Status: Ordered Pen [place], 32 G x 4 mm BD Ultra [...] mL, 5 Refills, Maintenance, 02/27/23 15:07:00 EDT, [facility]/pharmacy #[id number], 148, cm, 03/29/22 11:32:00 EDT, Height, 80.2, kg, 03/29/22 11:32:00 EDT, Dry Weight Start Date: 02/27/23 Status: Ordered Trulicity Pen 0.75 mg/0.5 mL subcutaneous solution 0.5 mL = 0.75 mg, Subcutaneous Injection, Every week, rotate injection sites, # 2 mL, 3 Refills, Maintenance, 09/30/23 15:07:00 EST, Solution, [facility]/pharmacy #[id number], Partial fill upon patient request ifthe prescription [...] Team Related Persons Name: MAMTA CONNOLLY Address: [address] [address]
--- OUTSIDE RECORDS SUMMARY | 2024-02-17 08:17 | XMS_ITS | Continuity of Care Document ---
Author Organization [facility] Address [address] [place] [address]- Care Team Providers Care Mash Preparatory Operator Name Role Phone Karen HUYNH, Veronica Primary Care Physician Unav ailable Encounter [facility] Date(s): 09/12/23 - 01/08/24 [facility] [address] [place] [id number] [[email or web address]] Attending Physician: Rose Rodas MD Admitting Physician: Rose Rodas MD Referring Physician: Veronica Jones MD Allergies, [...] Refills, Maintenance, 04/01/22 15:17:00 EDT, ER Tablet, [facility]/pharmacy #[id number], Partial fill upon patient request if [...] 5 Refills, Maintenance, 03/29/22 12:04:00EDT, ER Tablet, [facility]/pharmacy #[id number], 148, cm, ... Start Date: 03/29/22 Stop Date: 09/25/22 Status: Ordered Pen [place], 32 G x 4 mm BD Ultra [...] Related Persons Name: MAMTA CONNOLLY Address: [address] [address]
--- OUTSIDE RECORDS SUMMARY | 2024-02-17 08:17 | XMS_ITS | Continuity of Care Document ---
Author Organization [facility] Address [address] [place] [address]- Care Team Providers Care Digital Cartographer Name Role Phone Veronica Jones MD Primary Care Physician [phone] [place] [facility] [place]22 - 07/07/22 [facility] [address] [place] [id number]- Attending Physician: Toribio Guajardo Admitting Physician: AdmtrToribio [...] Refills, Maintenance, 04/01/22 15:17:00 EDT, ER Tablet, [facility]/pharmacy #[id number], Partial fill upon patient [...] 5 Refills, Maintenance, 03/29/22 12:04:00EDT, ER Tablet, [facility]/pharmacy #[id number], 148, cm, ... Start Date: 03/29/22 Stop Date: 09/25/22 Status: Ordered Ozempic 2 mg/1.5 mL (0.25 mg or 0.5 mg dose) subcutaneous solution = 0.5 mg, Subcutaneous Infusion, Every Friday, # 1.5 mL, 5 Refills, Maintenance, 03/29/22 12:04:00 EDT, [facility]/pharmacy #[id number], Partial fill upon patient request if the prescription is for a schedule II opioid drug., 0.5 mg Subcutaneous Infusion Every... Start Date: 03/29/22 Status: Ordered Pen [place], 32 G x 4 mm BD Ultra [...] Personnel Name: Veronica Jones MD Address: Address: [place], [place] [address]
[2024-02-17 08:29] VITALS: BP 103/69; PULSE 95; RESP 15; TEMP 36.6; O2SAT 96
[2024-02-17 08:43] LABS: Influenza A PCR NEGATIVE (Negative); Influenza B PCR NEGATIVE (Negative); Resp Syncy Virus RNA Qual PCR NEGATIVE (Negative); SARS COV2 PCR INHOUSE NEGATIVE (Negative)
[2024-02-17] MEDS: dexAMETHasone sod phosphate 10 MG/ML VIAL IVPUSH (09:09)
[2024-02-17 09:18] VITALS: BP 103/69; PULSE 95; RESP 15; TEMP 36.6; O2SAT 96
== END 2024-02-17 09:18 | disposition home or self-care (01) ==
PROVIDERS: Emergency Provider Emergency Medicine; PCP Nurse Practitioner Primary Care
DX: H10.33 Unspecified acute conjunctivitis, bilateral (principal); R04.0 Epistaxis; E11.9 Type 2 diabetes mellitus without complications; J45.909 Unspecified asthma, uncomplicated; R05.9 Cough, unspecified; Z03.818 Encounter for observation for suspected exposure to other biological agents ruled out; Z79.4 Long term (current) use of insulin; Z79.84 Long term (current) use of oral hypoglycemic drugs; Z79.899 Other long term (current) drug therapy
CPT/HCPCS: 0241U; 87651; 99283; J1100

== ENCOUNTER 2024-02-19 12:53 | Outpatient (AMB) | payer MEDICARE, MEDICAID, SELFPAY ==
--- NOTE | 2024-02-19 13:35 | MHC.OFFVIS ---
Vital Signs 02/19/24 13:36 Height 4 ft 10 in Weight 203 lb 6 oz BMI 42.5 BP 120/74 Blood Pressure Location Lt brachial Position Sitting Intake Visit Reasons: Colposcopy Allergies No Known Allergies [No Known Allergies*] Allergy (Verified 02/19/24 13:35) Is last menstrual period known: Yes HPI Comments Details: Presenting for abnormal Pap smear showing ASCUS HPV E6/E7 positive, HPV 16/18/45 negative. No previous Pap smear is available. Complaining of vulvovaginal itching with no vaginal odor PFSH Medical History Diabetes Asthma Surgical History S/P laparoscopic cholecystectomy History of esophagogastroduodenoscopy (EGD) Family History Mother Diabetes Hypertension Social History Household Members: Family Housing: Apartment Do you presently have visiting nurse or other home services: No Alcohol intake: never Patient Tobacco Use Status: Never used Tobacco service: No Current occupational status: unemployed Female Reproductive History Menstrual Age of Menarche: 11 Date of last pap smear: 10/17/23 History of abnormal pap smear: Yes History of STI: No Review of Systems Const All systems reviewed & are unremarkable except as noted in HPI and below Physical Exam Vital Signs: Last Vital Signs BP 120/74 02/19/24 13:36 BMI result Body Mass Index 42.5 General: Yes no CVA tenderness External Female Exam: normal external appearance and normal appearance of the urethra Speculum Exam - Vagina: normal appearance of the vagina, normal palpation, no lesions and no masses Speculum Exam - Cervix: normal appearance of the cervix, normal palpation, no lesions, no masses and nontender Bimanual exam- vagina & uterus: normal bimanual exam, normal palpation, uterine size normal, normal palpation, uterine shape normal, No Cervical tenderness present and non-tender Bimanual Exam- Adnexa, other: normal adnexae Back/Spine/Pelvis Back: no CVA tenderness Assessment & Plan Assessment & Plan (1) ASCUS with positive high risk HPV cervical: Code(s): R87.610 - Atypical squamous cells of undetermined significance on cytologic smear of cervix (ASC-US); R87.810 - Cervical high risk human papillomavirus (HPV) DNA test positive Category: Medical Plan: Discussed with the patient per ACCP guidelines management of ascus HPV positive in the patient's younger than 25 years of age the recommendation is to proceed with repeat cytology at 1 year, depending on the results if the results next cytology is negative/ASCUS or LSIL the recommendations to repeat cytology in 1 more year if Pap smear is ascus-H/AGC/HSIL will proceed to colposcopy. Instructions given the patient to schedule 1 year appointment for repeat cytology. All questions answered, the patient verbalized understanding (2) Vulvovaginitis: Code(s): N76.0 - Acute vaginitis Category: Medical Plan: GC/CT, Bacterial Vaginosis panel taken, Diflucan 150 mg p.o. x1 was sent to the patient's pharmacy. The patient was instructed to call if symptoms don't improve in 48 hours. Medications: New fluconazole 150 mg PO ONCE 1 day 1 tab 0RF Coding Level of Care Code Est Pt Level 3 (37411) Diagnoses ASCUS with positive high risk HPV cervical R87.610; R87.810 Vulvovaginitis N76.0
[2024-02-19 13:36] VITALS: BP 120/74; BMI 42.5
== END 2024-02-19 14:08 | disposition home or self-care (01) ==
PROVIDERS: PCP Nurse Practitioner Primary Care; Visit Provider Obstetrics & Gynecology
DX: R87.610 Atypical squamous cells of undetermined significance on cytologic smear of cervix (ASC-US) (principal); R87.810 Cervical high risk human papillomavirus (HPV) DNA test positive; N76.0 Acute vaginitis
CPT/HCPCS: 99213

== ENCOUNTER 2024-02-19 12:53 | Outpatient (REF) | payer MEDICARE, MEDICAID, SELFPAY ==
[2024-02-19 17:45] LABS: Bacterial Vaginosis PCR NEGATIVE (Negative); Candida Group PCR DETECTED (Not Detect); Candida glab krusei PCR NOT DETECTED (Not Detect); Trichomonas vaginalis PCR NOT DETECTED (Not Detect)
[2024-02-19 18:29] LABS: CT PCR NOT DETECTED (Not Detect.); NG PCR NOT DETECTED (Not Detect.)
== END 2024-02-19 12:54 | disposition home or self-care (01) ==
LOC: HO.LNP 12:53
PROVIDERS: PCP Nurse Practitioner Primary Care; Visit Provider Obstetrics & Gynecology
DX: Z01.419 Encounter for gynecological examination (general) (routine) without abnormal findings (principal); N76.0 Acute vaginitis; R87.610 Atypical squamous cells of undetermined significance on cytologic smear of cervix (ASC-US); R87.810 Cervical high risk human papillomavirus (HPV) DNA test positive
CPT/HCPCS: 0352U; 0353U; 99212

== ENCOUNTER 2024-03-02 15:26 | Emergency (ER) | payer MEDICARE, MEDICAID, SELFPAY ==
[2024-03-02 15:36] VITALS: BP 149/88; PULSE 107; RESP 18; TEMP 36.5; O2SAT 98; BMI 41.1
--- NOTE | 2024-03-02 15:39 | ED.EAR ---
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 Denies any nasal congestion, fever, cough. Has not taken any imnd-mkk-cwdytya medications for symptoms. Denies history of frequent ear infections. Denies any discharge or drainage. Complaint: ear pain Location: right ear Duration: constant Severity: severe Discharge from ear: no Treatment prior to arrival: none Related Data Home Medications ?Medication ?Instructions ?Recorded ?Confirmed insulin degludec 100 unit/mL (3 50 unit subcut DAILY@1900 06/08/22 10/16/23 mL) subcutaneous pen (Tresiba FlexTouch U-100 insulin) blood sugar diagnostic (FreeStyle #10 ea 08/09/22 10/16/23 Lite Strips) blood-glucose meter (FreeStyle #1 ea 08/09/22 10/16/23 Potlatch Lite kit) lancets 33 gauge (TRUEplus Lancets) #100 ea 08/09/22 10/16/23 metformin 500 mg tablet,extended 500 mg PO BID 08/09/22 10/16/23 release 24 hr pen needle, diabetic 32 gauge x #50 ea 08/09/22 10/16/23 5/32 (Pentips) etonogestrel 68 mg subdermal subdermal 10/16/23 10/16/23 implant (Nexplanon) dulaglutide 0.75 mg/0.5 mL mg subcut 02/19/24 subcutaneous pen injector (Trulicity) Previous Rx's ?Medication ?Instructions ?Recorded omeprazole 20 mg capsule,delayed 20 mg PO DAILY 4 weeks #28 caps 12/19/22 release benzonatate 100 mg capsule 100 mg PO BID PRN cough #20 caps 02/17/24 cetirizine 0.24 % eye drops in a 1 drp ophthalmic (eye) BID itching 02/17/24 dropperette 7 days #30 ea oxymetazoline 0.05 % nasal spray 2 spray intranasal ONCE nosebleed 02/17/24 (Afrin (oxymetazoline)) 3 days #15 mL fluconazole 150 mg tablet 150 mg PO ONCE 1 day #1 tab 02/19/24 amoxicillin 875 mg tablet 875 mg PO BID #14 tabs 03/02/24 Allergies Allergy/AdvReac Type Severity Reaction Status Date / Time No Known Allergies Allergy Verified 03/02/24 15:39 [No Known Allergies*] Review of Systems Review of Systems: As per HPI. Yes all other systems are reviewed and are negative Constitutional: Constitutional: Reports as per HPI [facility] Past Medical History Medical History (Updated 03/02/24 @ 15:40 by Trinity Brown NP) Vaginal itching Diabetes Asthma Surgical History S/P laparoscopic cholecystectomy History of esophagogastroduodenoscopy (EGD) Family History Family History Mother Diabetes Hypertension Social History Social History Household Members: Family Housing: Apartment Do you presently have visiting nurse or other home services: No Alcohol intake: never Patient Tobacco Use Status: Never used Tobacco service: No Current occupational status: unemployed Physical Exam Vital Signs: Vital Signs: Vital signs have been reviewed and appear to be correct. Blood pressure normal. Heart rate normal. Respiratory rate normal. Temperature normal. Oxygen saturation normal. Const: General: cooperative, healthy appearing and no acute distress Orientation/consciousness: oriented to person, oriented to place, oriented to time and patient oriented x3 Limitations: no limitations HEENT: Head: Yes normocephalic and Yes atraumatic Ears: external ears normal and TM abnormal bulging on the right, erythematous on the right and with fluid behind the TM bilateral General nose exam: Normal external nose present Face and sinus: Yes face symmetric Mouth: oropharynx normal and moist mucous membranes Throat: Yes uvula midline Eyes: Pupils: Equal, round and reactive pupils present Neck: Neck: Yes normal visual inspection and Yes supple Resp: Effort & Inspection: normal respiratory effort and able to speak in complete sentences Auscultation: clear to auscultation bilaterally Cardio: Rate: regular rate Rhythm: regular rhythm Heart sounds: S1 normal heart sound present and S2 normal heart sound present GI: Palpation (GI): Soft to palpation and nontender Auscultation: normoactive bowel sounds : General: Yes no CVA tenderness Back/Spine/Pelvis: Back: no CVA tenderness Skin: General skin exam: elasticity normal and turgor normal Neuro: General: oriented to person, oriented to place, oriented to time, patient oriented x3, moves all extremities, no focal motor deficits and CN's II-XI intact bilaterally Cranial nerves: Yes Equal, round and reactive pupils present Cognition (Neuro): normal cognition Extrem: General: Yes full ROM, Yes no pedal edema and Yes no calf tenderness Psych: Mental Status: mental status grossly normal Affect: normal affect Thought process: Normal thought process present Medical Decision Making Medical Decision Making [facility] Narrative: Patient is a 23-year-old Lebanese-speaking female presenting to the emergency department with complaint of right ear pain since this morning. On exam patient is awake, A+Ox3, VS WNL, afebrile, normal neurological exam without focal deficits, physical exam findings as above. Given reported symptoms and physical exam findings, initial differential includes otitis media, otitis externa. Do not suspect mastoiditis. Physical exam consistent with AOM of right ear, will treat with course of amoxicillin. Discussed with patient to complete full course even if symptoms improve. Tylenol/ibuprofen for pain. Return precautions discussed. Patient verbalized understanding of and agreement with plan. 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 Differential Diagnosis Differential Diagnoses: The differential diagnosis associated with the presentation includes As per [facility] External Record Review External record reviewed: Inpatient record, Office record and Outpatient record Prescription Management I considered prescription management with: Antibiotic Discharge Plan Discharge Clinical Impression: Acute otitis media Patient Disposition: Home, Self-Care Instructions: Ear Infection (ED) Additional Instructions: You were evaluated in the emergency department today for ear pain. Your evaluation suggests that your pain is due to an ear infection. Please take your prescribed antibiotics as directed for the full course of the medication. Please follow up with your primary care provider within two days. Return to the emergency department if you experience hearing loss, discharge from your ear, headaches, fevers, recurrent vomiting, or any other concerning symptoms. Prescriptions: New amoxicillin 875 mg tablet 875 mg PO BID Qty: 14 0RF No Action omeprazole 20 mg capsule,delayed release(DR/EC) 20 mg PO DAILY 28 Days Qty: 28 1RF insulin degludec [Tresiba FlexTouch U-100] 100 unit/mL (3 mL) insulin pen 50 unit subcut DAILY@1900 metformin 500 mg tablet extended release 24 hr 500 mg PO BID cetirizine 0.24 % dropperette 1 drp ophthalmic (eye) BID 7 Days Qty: 30 0RF benzonatate 100 mg capsule 100 mg PO BID PRN (Reason: cough) Qty: 20 0RF oxymetazoline [Afrin (oxymetazoline)] 0.05 % spray,non-aerosol 2 spray intranasal ONCE 3 Days Qty: 15 0RF (DME) pen needle, diabetic [Pentips] 32 gauge x 5/32 needle See Rx Instructions .ROUTE .MEDSUPPLY Qty: 50 Rx Instructions: As directed (DME) lancets [TRUEplus Lancets] 33 gauge misc See Rx Instructions .ROUTE .MEDSUPPLY Qty: 100 Rx Instructions: As directed (DME) blood-glucose meter [FreeStyle [place] Lite] Kit See Rx Instructions .ROUTE .MEDSUPPLY Qty: 1 Rx Instructions: As directed (DME) FreeStyle Lite Strips Strip See Rx Instructions .ROUTE .MEDSUPPLY Qty: 10 Rx Instructions: As directed Nexplanon 68 mg implant subdermal Trulicity 0.75 mg/0.5 mL pen injector subcut fluconazole 150 mg tablet 150 mg PO ONCE 1 Days Qty: 1 0RF Print Language: Lebanese
[2024-03-02 15:47] VITALS: BP 149/88; PULSE 107; RESP 18; TEMP 36.5; O2SAT 98
== END 2024-03-02 15:49 | disposition home or self-care (01) ==
PROVIDERS: Emergency Provider Emergency Medicine; PCP Nurse Practitioner Primary Care
DX: H66.91 Otitis media, unspecified, right ear (principal); H92.01 Otalgia, right ear; E11.9 Type 2 diabetes mellitus without complications; J45.909 Unspecified asthma, uncomplicated
CPT/HCPCS: 99282; 99283

== ENCOUNTER 2024-05-11 13:44 | Outpatient (AMB) | payer MEDICARE, MEDICAID, SELFPAY ==
--- NOTE | 2024-05-11 13:44 | MHC.OFFVIS ---
Intake Visit Reasons: 4 mo f/u Intake Note: Patient presents for follow up. Allergies No Known Allergies [No Known Allergies*] Allergy (Verified 05/11/24 13:46) HPI Comments Details: 24-yr-old female presents for f/u televideo visit via [email or web address], accompanied by her mother who helps w/ history. In-lab sleep study showed severe JUAN RAMON w/ AHI 93/hr and O2 andir 70%, duirng split night PAP titration sleep apnea and hypoxemia stabilized at CPAP 9 cmH2O. Pt reports she had Covid-19 approx 2 months ago, and she could not use the machine at that time. When she uses the machine, she does not snore. She sleeps betetr and wakes up more refreshed. [place] [id number] Email: [email or web address] Compliance Report Usage 01/16/2024 - 04/14/2024 Usage days 37/90 days (41%) >= 4 hours 28 days (31%) < 4 hours 9 days (10%) Usage hours 215 hours 32 minutes Average usage (total days) 2 hours 24 minutes Average usage (days used) 5 hours 50 minutes Median usage (days used) 6 hours 31 minutes Total used hours (value since last reset - 04/14/2024) 251 hours AirSense 10 AutoSet Serial number [id number] Mode CPAP Set pressure 9 cmH2O EPR Fulltime EPR level 2 Therapy Leaks - L/min Median: 1.4 95th percentile: 28.3 Maximum: 40.7 Events per hour AI: 0.7 HI: 0.7 AHI: 1.4 Apnea Index Central: 0.0 Obstructive: 0.6 Unknown: 0.1 RERA Index 1.9 PFSH Medical History Vaginal itching Diabetes Asthma Surgical History S/P laparoscopic cholecystectomy History of esophagogastroduodenoscopy (EGD) Family History Mother Diabetes Hypertension Social History Household Members: Family Housing: Apartment Do you presently have visiting nurse or other home services: No Alcohol intake: never Patient Tobacco Use Status: Never used Tobacco service: No Current occupational status: unemployed Female Reproductive History Menstrual Age of Menarche: 11 Physical Exam Const General: cooperative and no acute distress Orientation/consciousness: patient oriented x3 Resp Effort & Inspection: normal respiratory effort and able to speak in complete sentences Neuro General: patient oriented x3 Cognition (Neuro): normal cognition Psych Appearance: grossly normal Mental Status: mental status grossly normal Speech and movement: Normal speech and movement present Affect: normal affect Attitude: cooperative Telehealth Telehealth Telehealth Platform: [email or web address] Location of provider rendering services: practice address Location of patient: address on file Patient Identification confirmed using: Name, : Yes Telehealth method: video Patient verbally consented to treatment: Yes Patient verbally consented to billing insurance company: Yes Patient informed of any privacy concerns related to visit: Yes Minutes spent on Phone/Video with Pt.: 9 Assessment & Plan Assessment & Plan (1) Severe obstructive sleep apnea: Code(s): G47.33 - Obstructive sleep apnea (adult) (pediatric) Category: Medical Plan Continue CPAP 9 cmH2O nightly ? 4 hrs and ideally whenever asleep. If pt has a UR, and cannot use machine, she should sleep w/ HOB elevated. Compliance stressed. Clean and change PAP supplies routinely. Future considerations- wt loss referal. f/u in 6 months or sooner prn. Coding Level of Care Code Tele Est Pt Level 3 (20136) Diagnoses Severe obstructive sleep apnea G47.33
== END 2024-05-11 15:18 | disposition home or self-care (01) ==
LOC: HO.HSMS 13:44
PROVIDERS: PCP Nurse Practitioner Primary Care; Visit Provider Nurse Practitioner Family
DX: G47.33 Obstructive sleep apnea (adult) (pediatric) (principal)
CPT/HCPCS: 99213

== ENCOUNTER → 2024-05-11 13:44 | Outpatient (BNVA) | payer MEDICARE, MEDICAID, SELFPAY | PROVIDERS: PCP Nurse Practitioner Primary Care; Visit Provider Nurse Practitioner Family ==

== ENCOUNTER 2024-06-23 16:25 | Emergency (ER) | payer MEDICARE, MEDICAID, SELFPAY ==
[2024-06-23 16:32] VITALS: BP 124/72; PULSE 118; RESP 15; TEMP 37; O2SAT 96
--- NOTE | 2024-06-23 16:33 | ECG_ITS ---
Test Reason : TACHCARDIA Blood Pressure : / mmHG Vent. Rate : 116 BPM Atrial Rate : 116 BPM P-R Int : 126 ms QRS Dur : 074 ms QT Int : 328 ms P-R-T Axes : 031 067 019 degrees QTc Int : 455 ms Sinus tachycardia Otherwise normal ECG When compared with ECG of 11-SEP-2022 09:39, No significant change was found Referred By: Generic ED Physician Electronically Signed By:Jad Brasher
[2024-06-23 16:38] VITALS: BP 137/68; PULSE 130; O2SAT 97
[2024-06-23 16:49] VITALS: BP 124/72; PULSE 119; RESP 16; TEMP 36.2; O2SAT 96; BMI 34.7
[2024-06-23 16:49] LABS: MANUAL DIFF FLAG NO
[2024-06-23 16:49] LABS: Glucose, Whole Blood 428 mg/dL (60-115)
[2024-06-23] MEDS: Lactated Ringers 1,000 ML 999 ML IV (16:49)
[2024-06-23 16:50] LABS: Basophils Percent Auto 0.3 % (0-2); Eosinophils Absolute Auto 0.1 X10*3/uL (0.0-0.4); Eosinophils Percent Auto 0.6 % (0-4); Hemoglobin 13.7 g/dl (12.0-16.0); Imm Gran Abs Auto 0.06 X10*3/uL (0.00-0.03); Imm Gran Pct Auto 0.6 % (0.0-0.4); Lymphocytes Absolute Auto 1.8 X10*3/uL (1.2-4.9); Lymphocytes Percent Auto 17.3 % (20-40); Mean Corpuscular HGB Conc 33.4 g/dl (31.0-35.0); Mean Corpuscular Hemoglobin 26.8 pg (27.0-33.0); Mean Corpuscular Volume 80.1 fL (80.0-98.0); Mean Platelet Volume 10.3 fL (9.4-12.3); Monocytes Absolute Auto 0.6 X10*3/uL (0.1-1.2); Monocytes Percent Auto 5.7 % (2-11); Neutrophils Absolute Auto 7.7 x10*3/uL (2.0-8.3); Neutrophils Percent Auto 75.5 % (45-73); Platelet Count 316 X10*3/uL (160-400); Red Blood Count 5.12 X10*6/uL (4.20-5.50); Red Cell Distribution Width 12.6 % (11.0-16.0); White Blood Count 10.1 X10*3/uL (4.8-10.8)
[2024-06-23 16:52] LABS: Venous Blood Gas Refer to POC result
[2024-06-23 16:54] LABS: VBG Base Excess 0.3 mmol/L; VBG HCO3 24 mmol/L (22-26); VBG pCO2 37 mmHg; VBG pH 7.41 (7.32-7.43); VBG pO2 82 mmHg
--- NOTE | 2024-06-23 17:11 | ED_ITS ---
HPI - General Adult General Chief complaint: General Medical Stated complaint: hyperglycemia 471*, tachy 132* Time Seen by Provider: 06/23/24 16:30 Source: patient Mode of arrival: EMS Limitations: no limitations History of Present Illness HPI narrative: This is a 24-year-old woman with a past medical history of diabetes mellitus, asthma, JUAN RAMON, history of pancreatitis, history of cholecystectomy who presents for evaluation of hyperglycemia. Family present at time of physical exam. Patient states that her blood sugar was in the 130s yesterday. She states that she noted blood sugar was always in the for [place] in the posterior region. Once for evaluation. She states that she has not been sick recently with any fevers, cough or congestion. She states no sore throat, headache myalgias. She states no chest pain or difficulty breathing. She has no abdominal pain, nausea or vomiting. She states no flank pain, dysuria or urinary frequency/urgency. She states that she was feeling stressed out today after an argument between her mother and neighbor after a dog was trying to bite her. She states no associated injuries. She reports feeling better at this time. Related Data Home Medications ?Medication ?Instructions ?Recorded ?Confirmed insulin degludec 100 unit/mL (3 50 unit subcut DAILY@1900 06/08/22 10/16/23 mL) subcutaneous pen (Tresiba FlexTouch U-100 insulin) blood sugar diagnostic (FreeStyle #10 ea 08/09/22 10/16/23 Lite Strips) blood-glucose meter (FreeStyle #1 ea 08/09/22 10/16/23 [place] Lite kit) lancets 33 gauge (TRUEplus Lancets) #100 ea 08/09/22 10/16/23 metformin 500 mg tablet,extended 500 mg PO BID 08/09/22 10/16/23 release 24 hr pen needle, diabetic 32 gauge x #50 ea 08/09/22 10/16/23 (Pentips) etonogestrel 68 mg subdermal subdermal 10/16/23 10/16/23 implant (Nexplanon) dulaglutide 0.75 mg/0.5 mL mg subcut 02/19/24 subcutaneous pen injector (Trulicity) Previous Rx's ?Medication ?Instructions ?Recorded omeprazole 20 mg capsule,delayed 20 mg PO DAILY 4 weeks #28 caps 12/19/22 release benzonatate 100 mg capsule 100 mg PO BID PRN cough #20 caps 02/17/24 cetirizine 0.24 % eye drops in a 1 drp ophthalmic (eye) BID itching 02/17/24 dropperette 7 days #30 ea oxymetazoline 0.05 % nasal spray 2 spray intranasal ONCE nosebleed 02/17/24 (Afrin (oxymetazoline)) 3 days #15 mL fluconazole 150 mg tablet 150 mg PO ONCE 1 day #1 tab 02/19/24 amoxicillin 875 mg tablet 875 mg PO BID #14 tabs 03/02/24 Allergies Allergy/AdvReac Type Severity Reaction Status Date / Time No Known Allergies Allergy Verified 06/23/24 16:49 [No Known Allergies*] Review of Systems 2 Review of Systems: ROS as per [facility] Past Medical History Medical History Vaginal itching Diabetes Asthma Surgical History S/P laparoscopic cholecystectomy History of esophagogastroduodenoscopy (EGD) Family History Family History Mother Diabetes Hypertension Social History Social History Household Members: Family Housing: Apartment Do you presently have visiting nurse or other home services: No Alcohol intake: never Patient Tobacco Use Status: Never used Tobacco Advance Directives: No Advance Directives Information Provided: Yes service: No Current occupational status: unemployed Physical Exam ED Vital Signs: Vital Signs - 24 hr 06/23/24 16:32 06/23/24 16:49 06/23/24 18:00 Temperature 98.6 F 97.2 F 98.6 F Pulse Rate 118 H 119 H 110 H Respiratory Rate 15 16 17 Blood Pressure 124/72 124/72 121/76 Pulse Oximetry 96 96 98 Oxygen Delivery Method Room Air Room Air Room Air BMI result Body Mass Index 34.7 Gen: NAD, AOx3 HEENT: NCAT, EOMI, normal conjunctiva, tacky oral mucosa CV: Tachycardic rate, regular rhythm, no murmurs appreciated Pulm: CTAB, no increased work of breathing GI: Soft, NTND, no rebound, guarding or rigidity MSK: No calf edema/erythema/TTP Neuro: Grossly non focal Medications Administered Discontinued Medications Generic Name Dose Route Start Last Admin Trade Name Ciera PRN Reason Stop Dose Admin Lactated Ringer's 1,000 mls @ 999 mls/hr 06/23/24 16:30 06/23/24 18:38 Lr IV 06/23/24 17:30 Infused .Q1H1M ONE Infusion Medical Decision Making Medical Decision Making [facility] Narrative: Differential diagnosis includes, but is not limited to hyperglycemia, diabetic ketoacidosis, stress hyperglycemia. Patient is afebrile and hemodynamically stable on room air. Exam is benign and reassuring. I reviewed and interpreted labs, which are very reassuring. Patient is treated supportively with IV fluids and glucose is improving. I counseled patient on appropriate dietary changes and recommended continue oral hydration at home with water. On re-examination, patient is well-appearing and in no acute distress. There is no indication for further emergent evaluation in this otherwise well-appearing patient as above. ?Patient is provided written and verbal instructions, educational materials, recommendations for outpatient follow-up, strict return precautions and teach back is performed. ?Patient states understanding and agreement with plan of care. ?Patient is discharged home in stable and improved condition. Admission/Observation Consideration of admission/observation: Escalation of care including admission/observation considered Lab Data [facility] Lab Attestation statement: I reviewed the patient's lab results. I independently reviewed and interpreted the patient's labs including CBC, metabolic panel, lipase, venous blood gas and beta hydroxybutyrate. Patient's labs are overall very reassuring. There are no cell line derangements. Venous blood gas demonstrates no acid-base derangement effectively ruling out diabetic ketoacidosis. Further, beta hydroxybutyrate 0.07. Patient tests negative for COVID-19, influenza and RSV. Repeat POC glucose 296 after 1 L IV fluid. 06/23/24 16:44 06/23/24 17:41 Labs: Lab Results 06/23/24 06/23/24 06/23/24 Range/Units 16:42 16:44 16:49 WBC 10.1 (4.8-10.8) X10*3/uL RBC 5.12 (4.20-5.50) X10*6/uL Hgb 13.7 (12.0-16.0) g/dl Hct 41.0 (37.0-47.0) % MCV 80.1 (80.0-98.0) fL MCH 26.8 L (27.0-33.0) pg MCHC 33.4 (31.0-35.0) g/dl RDW 12.6 (11.0-16.0) % Plt Count 316 (160-400) X10*3/uL MPV 10.3 (9.4-12.3) fL Immature Gran % (Auto) 0.6 H (0.0-0.4) % Neut % (Auto) 75.5 H (45-73) % Lymph % (Auto) 17.3 L (20-40) % [place] % (Auto) 5.7 (2-11) % Eos % (Auto) 0.6 (0-4) % Baso % (Auto) 0.3 (0-2) % Lymph # (Auto) 1.8 (1.2-4.9) X10*3/uL [place] # (Auto) 0.6 (0.1-1.2) X10*3/uL Eos # (Auto) 0.1 (0.0-0.4) X10*3/uL Baso # (Auto) 0.0 (0.0-0.2) X10*3/uL Abs Immat Gran (auto) 0.06 H (0.00-0.03) X10*3/uL Absolute Neuts (auto) 7.7 (2.0-8.3) x10*3/uL Absolute Nucleated RBC 0.000 (0.0-0.012) X10*3/uL Nucleated RBC % (auto) 0.0 (0.0-0.2) /100WBC VBG pH (7.32-7.43) VBG pCO2 mmHg VBG pO2 mmHg VBG HCO3 (22-26) mmol/L VBG O2 Saturation % VBG Base Excess mmol/L Sodium (135-145) mmol/L Potassium (3.3-5.1) mmol/L Chloride (96-108) mmol/L Carbon Dioxide (22-29) mmol/L Anion Gap (12-20) BUN (9-16) mg/dL Creatinine (0.5-1.4) mg/dL Estim Creat Clear Calc Estimated GFR POC Glucose 428 H* (60-115) mg/dL Random Glucose (60-115) mg/dL Calcium (8.4-10.2) mg/dL Total Bilirubin (0.0-1.0) mg/dL Direct Bilirubin (0.0-0.5) mg/dL AST (5-31) U/L ALT (0-31) U/L Alkaline Phosphatase (39-117) U/L Total Protein (6.5-8.0) g/dL Albumin (3.5-5.0) g/dL Lipase (8-78) U/L Beta-Hydroxybutyrate (0.02-0.27) mmol/L Influenza Type A (PCR) NEGATIVE (Negative) Influenza Type B (PCR) NEGATIVE (Negative) RSV RNA Qual (PCR) NEGATIVE (Negative) SARS-CoV-2 RNA (RT-PCR) NEGATIVE (Negative) 06/23/24 06/23/24 06/23/24 Range/Units 16:50 17:41 18:37 WBC (4.8-10.8) X10*3/uL RBC (4.20-5.50) X10*6/uL Hgb (12.0-16.0) g/dl Hct (37.0-47.0) % MCV (80.0-98.0) fL MCH (27.0-33.0) pg MCHC (31.0-35.0) g/dl RDW (11.0-16.0) % Plt Count (160-400) X10*3/uL MPV (9.4-12.3) fL Immature Gran % (Auto) (0.0-0.4) % Neut % (Auto) (45-73) % Lymph % (Auto) (20-40) % [place] % (Auto) (2-11) % Eos % (Auto) (0-4) % Baso % (Auto) (0-2) % Lymph # (Auto) (1.2-4.9) X10*3/uL [place] # (Auto) (0.1-1.2) X10*3/uL Eos # (Auto) (0.0-0.4) X10*3/uL Baso # (Auto) (0.0-0.2) X10*3/uL Abs Immat Gran (auto) (0.00-0.03) X10*3/uL Absolute Neuts (auto) (2.0-8.3) x10*3/uL Absolute Nucleated RBC (0.0-0.012) X10*3/uL Nucleated RBC % (auto) (0.0-0.2) /100WBC VBG pH 7.41 (7.32-7.43) VBG pCO2 37 mmHg VBG pO2 82 mmHg VBG HCO3 24 (22-26) mmol/L VBG O2 Saturation 97.0 % VBG Base Excess 0.3 mmol/L Sodium 138 (135-145) mmol/L Potassium 4.1 (3.3-5.1) mmol/L Chloride 105 (96-108) mmol/L Carbon Dioxide 26 (22-29) mmol/L Anion Gap 11 L (12-20) BUN 13 (9-16) mg/dL Creatinine 0.73 (0.5-1.4) mg/dL Estim Creat Clear Calc 131.5 Estimated GFR > 60 POC Glucose 296 H (60-115) mg/dL Random Glucose 404 H* (60-115) mg/dL Calcium 9.6 (8.4-10.2) mg/dL Total Bilirubin 0.3 (0.0-1.0) mg/dL Direct Bilirubin 0.1 (0.0-0.5) mg/dL AST 42 H (5-31) U/L ALT 46 H (0-31) U/L Alkaline Phosphatase 109 (39-117) U/L Total Protein 6.7 (6.5-8.0) g/dL Albumin 3.5 (3.5-5.0) g/dL Lipase 24 (8-78) U/L Beta-Hydroxybutyrate 0.07 (0.02-0.27) mmol/L Influenza Type A (PCR) (Negative) Influenza Type B (PCR) (Negative) RSV RNA Qual (PCR) (Negative) SARS-CoV-2 RNA (RT-PCR) (Negative) Independent Interpretation I performed an independent interpretation of an: EKG Interpretation: I independently reviewed and interpreted the patient's EKG, which demonstrates a sinus tachycardia at 116 beats per minute, UT 126, QRS is 74, QTC 455, no STEMI Discharge Plan Discharge Clinical Impression: Acute hyperglycemia Patient Disposition: Home, Self-Care Instructions: Diabetic Hyperglycemia (ED) Additional Instructions: You were evaluated in the emergency room for diabetic hyperglycemia. You were not found to have any complications and your blood glucose level was decreasing after receiving IV fluids. Please continue drinking plenty of water. Please do not drink any juice, soda or any foods that contain a lot of carbohydrate or sugar. Please follow-up with your primary care doctor in the next 5-7 days. Please call for an appointment. Return to the emergency room with a new concerns including, but not limited to vision changes, abdominal pain, vomiting, chest pain or difficulty breathing. Lo evaluaron en la brea de emergencias por hiperglucemia diab?zenon. No se encontr? que tuviera ninguna complicaci?n y dowd nivel de glucosa en fermín disminuy? despu?s de recibir l?quidos por v?a intravenosa. Contin?e bebiendo nicholas agua. Por favor, no ramesh jugos, refrescos ni kevon?n alimento que contenga muchos carbohidratos o az?car. Julius un seguimiento con dowd m?dico de atenci?n primaria en los pr?ximos 5 a 7 d?as. Por favor llame para programar ean nikolai. Regrese a la brea de emergencias con nuevas inquietudes que incluyen, entre otras, cambios en la visi?n, dolor abdominal, v?mitos, dolor en el pecho o dificultad para respirar. Prescriptions: No Action omeprazole 20 mg capsule,delayed release(DR/EC) 20 mg PO DAILY 28 Days Qty: 28 1RF insulin degludec [Tresiba FlexTouch U-100] 100 unit/mL (3 mL) insulin pen 50 unit subcut DAILY@1900 metformin 500 mg tablet extended release 24 hr 500 mg PO BID cetirizine 0.24 % dropperette 1 drp ophthalmic (eye) BID 7 Days Qty: 30 0RF benzonatate 100 mg capsule 100 mg PO BID PRN (Reason: cough) Qty: 20 0RF oxymetazoline [Afrin (oxymetazoline)] 0.05 % spray,non-aerosol 2 spray intranasal ONCE 3 Days Qty: 15 0RF amoxicillin 875 mg tablet 875 mg PO BID Qty: 14 0RF (DME) pen needle, diabetic [Pentips] 32 gauge x 5/32 needle See Rx Instructions .ROUTE .MEDSUPPLY Qty: 50 Rx Instructions: As directed (DME) lancets [TRUEplus Lancets] 33 gauge misc See Rx Instructions .ROUTE .MEDSUPPLY Qty: 100 Rx Instructions: As directed (DME) blood-glucose meter [FreeStyle [place] Lite] Kit See Rx Instructions .ROUTE .MEDSUPPLY Qty: 1 Rx Instructions: As directed (DME) FreeStyle Lite Strips Strip See Rx Instructions .ROUTE .MEDSUPPLY Qty: 10 Rx Instructions: As directed Nexplanon 68 mg implant subdermal Trulicity 0.75 mg/0.5 mL pen injector subcut fluconazole 150 mg tablet 150 mg PO ONCE 1 Days Qty: 1 0RF Print Language: Maori
[2024-06-23 17:45] LABS: Influenza A PCR NEGATIVE (Negative); Influenza B PCR NEGATIVE (Negative); Resp Syncy Virus RNA Qual PCR NEGATIVE (Negative); SARS COV2 PCR INHOUSE NEGATIVE (Negative)
[2024-06-23 18:00] VITALS: BP 121/76; PULSE 110; RESP 17; TEMP 37; O2SAT 98
[2024-06-23 18:04] LABS: Beta-Hydroxybutyrate 0.07 mmol/L (0.02-0.27)
[2024-06-23 18:21] LABS: Alanine Aminotransferase 46 U/L (0-31); Albumin Level 3.5 g/dL (3.5-5.0); Alkaline Phosphatase 109 U/L (39-117); Anion Gap 11 (12-20); Aspartate Amino Transferase 42 U/L (5-31); Bilirubin Direct 0.1 mg/dL (0.0-0.5); Bilirubin Total 0.3 mg/dL (0.0-1.0); Blood Urea Nitrogen 13 mg/dL (9-16); Calcium 9.6 mg/dL (8.4-10.2); Carbon Dioxide 26 mmol/L (22-29); Chloride 105 mmol/L (96-108); Creatinine Clr Calc Pharmacy 131.5; Estimated Glomerular Filt Rate > 60; Glucose Random 404 mg/dL (60-115); Lipase 24 U/L (8-78); Potassium 4.1 mmol/L (3.3-5.1); Sodium 138 mmol/L (135-145); Total Protein 6.7 g/dL (6.5-8.0)
[2024-06-23 18:42] LABS: Glucose, Whole Blood 296 mg/dL (60-115)
== END 2024-06-23 18:52 | disposition home or self-care (01) ==
PROVIDERS: Emergency Provider Emergency Medicine; PCP Nurse Practitioner Primary Care
DX: E11.65 Type 2 diabetes mellitus with hyperglycemia (principal); Z03.818 Encounter for observation for suspected exposure to other biological agents ruled out; J45.909 Unspecified asthma, uncomplicated
CPT/HCPCS: 0241U; 36415; 80048; 80076; 82010; 82803; 82947; 83690; 85025; 93005; 96360; 96361; 99284; J7120

== ENCOUNTER → 2024-06-23 16:33 | Outpatient (BNV) | payer MEDICARE, MEDICAID, SELFPAY | PROVIDERS: Emergency Provider Emergency Medicine; PCP Nurse Practitioner Primary Care; Visit Provider Internal Medicine Cardiovascular Disease | DX: R00.0 Tachycardia, unspecified (principal) | CPT/HCPCS: 93010 ==

== ENCOUNTER 2025-08-18 15:01 | Outpatient (REF) | payer MEDICARE, MEDICAID, SELFPAY ==
[2025-08-18 21:29] LABS: CT PCR NOT DETECTED (Not Detect.); NG PCR NOT DETECTED (Not Detect.)
== END 2025-08-18 15:02 | disposition home or self-care (01) ==
LOC: HO.LNP 15:01
PROVIDERS: PCP Nurse Practitioner Primary Care; Visit Provider Obstetrics & Gynecology
DX: Z01.419 Encounter for gynecological examination (general) (routine) without abnormal findings (principal); Z20.2 Contact with and (suspected) exposure to infections with a predominantly sexual mode of transmission
CPT/HCPCS: 87491; 87591; 88175

== ENCOUNTER 2025-08-18 15:01 | Outpatient (AMB) | payer MEDICARE, MEDICAID, SELFPAY ==
--- NOTE | 2025-08-18 15:05 | MHC.OFFVIS ---
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 No complaints. Last Pap/HPV was ascus HPV positive in 10/25 [facility] Medical History (Updated 08/18/25 @ 15:20 by Geovani Nicholson MD) Mentally disabled Vaginal itching Diabetes Asthma Surgical History S/P laparoscopic cholecystectomy History of esophagogastroduodenoscopy (EGD) Family History Mother Diabetes Hypertension Social History Household Members Other:: mother Housing: House Do you presently have visiting nurse or other home services: No Alcohol intake: never Patient Tobacco Use Status: Never used Tobacco service: No Current occupational status: disabled Sexual orientation: Straight/Heterosexual Gender identity: Female Female Reproductive History Menstrual Age of Menarche: 11 Date of last menstrual period: 07/05/25 control method: implanted Total pregnancies: 0 Date of last pap smear: 10/17/23 History of abnormal pap smear: Yes (Ascus ,HPV +) Review of Systems Const All systems reviewed & are unremarkable except as noted in HPI and below Card Reports as per HPI Resp Reports as per HPI GI Reports as per HPI and Reports no additional complaints Reports as per HPI Physical Exam Vital Signs: BMI result Body Mass Index 37.4 Const General: cooperative, healthy appearing and comfortable Chest Chest palpation & inspection: normal inspection of the chest and normal palpation of entire chest wall Breast/axilla inspection: normal inspection of the breasts and normal inspection of the axillae Breast/axilla palpation: normal palpation of the breasts, normal palpation of the axillae and no axillary lymphadenopathy Resp Effort & Inspection: normal respiratory effort Auscultation: clear to auscultation bilaterally Percussion: percussion normal Cardio Palpation: normal PMI Rate: regular rate Rhythm: regular rhythm Heart sounds: no murmurs and no rubs Peripheral pulses: Peripheral pulses 2+ throughout GI Inspection: Yes normal to inspection Palpation (GI): Soft to palpation, nontender, no guarding, not rigid and No hepatosplenomegaly present Percussion: Yes normal to percussion Auscultation: normal bowel sounds Rectal Exam - Female: deferred General: Yes bladder normal to palpation External Female Exam: No lesion Speculum Exam - Vagina: normal appearance of the vagina, normal palpation, normal vaginal discharge and not erythematous Speculum Exam - Cervix: normal appearance of the cervix and normal palpation Bimanual exam- vagina & uterus: normal bimanual exam, normal palpation, uterine size normal, bladder normal to palpation, consistency normal and normal palpation Bimanual Exam- Adnexa, other: normal adnexae, no masses and no tenderness Assessment & Plan Assessment & Plan (1) Well woman exam: Comment: Ascus/HPV positive in 10/25 Code(s): Z01.419 - Encounter for gynecological examination (general) (routine) without abnormal findings Category: Medical Plan: GC/CT taken Pap smear taken . Counseled the patient about the recommended dietary allowance of 1000 mg of Calcium & 600 IU of vitamin D. The patient was instructed to perform monthly self-breast exams and to schedule an annual exam in a year; All questions answered and the patient verbalized understanding. Instructed the patient to schedule annual exam in a year Orders: Orders Pap Smear Today Z01.419 - Encounter for gynecological examination (general) (routine) without abnormal findings CT NG by PCR Vag/Cerv Today Z01.419 - Encounter for gynecological examination (general) (routine) without abnormal findings Coding Level of Care Code Est Pt Prev Care 18-39y(26065) Diagnoses Well woman exam Z01.419
[2025-08-18 15:09] VITALS: BP 110/70; BMI 37.4
--- OUTSIDE RECORDS SUMMARY | 2025-08-18 19:07 | XMS_ITS | Encounter Summary ---
Author Organization [employer] Address [address] [facility] 7t [place] [address] Care Team Providers Care Shot Blaster Name Role Phone Jeronimo Keita Primary Care Provider [phone] Encounter Details Date Type Department Care Team (Late st Contact Info) Description 06/13/2023 Orders Only [facility] MEDICINE [address] [place], [place] [phone] Jeronimo Keita ANP [address] [place], [place] [phone] Social History Tobacco Use Types Packs/Day Years Used Date Smoking Tobacco: Never Smokeless Tobacco: Never Alcohol Use Standard Drinks/Week Comments Never 0 (1 standard drink = 0.6 oz pur e alcohol) Housing Stability Answer Date Recorded What is your housing situation today? I have morena duggan 06/16/[address] you li ve. Do you have problems with any of the following? None of the above 06/16/2023 Food Insecurity Answer Date Recorded Within the past 12 months, y ou worried that your food would run out before you got money to buy more: Never True 06/16/2023 Within the past 12 months,th e food you bought just didn't last and you didn't have enough money to get more: Never True Transportation Answer Date Recorded In the past 12 months, has l ack of transportation kept you from medical appts, meetings, work or from getting things needed for daily living? No 06/16/2023 Utilities Answer Date Recorded In the past 12 months, has t he electric, gas, oil or water company threatened to shut off services in your home? No 06/16/2023 Depression Answer Date Recorded Patient Health Questionnaire-2 Score 0 06/11/2023 Comments Unknown Sex and Gender Information Value Date Recorded Sex Assigned at Female 07/01/2022 10:25 AM EDT Legal Sex Female 10:25 AM EDT Gender Identity Choose not to disclose 10:25 AM EDT Sexual Orientation Choose not to disclose 2021 10:25 AM EDT documented as of this encounter Miscellaneous Notes * Result Encounter Note - CAROLINA Donaldson - 06/13/2023 4:13 PM EDT Ordered by RECEIVER SETTER documented in this encounter Plan of Treatment Not on file documented as of this encounter Procedures Procedure Name Priority Date/Time Associated Diagnosis Comments BACTERIAL VAGINOSIS PANEL Routine 02/19/2024 12:53 PM EDT CHLAMYDIA/N. GONORRHOEAE RNA, TMA, UROGENITAL Routine 02/19/2024 12:53 PM EDT STREP A NUCLEIC ACID Routine 02/17/2024 7:58 AM EDT SARS COV2/INFLUENZA A/B AND RSV RNA QL NAAT Routine 02/17/2024 7:58 AM EDT PAP SMEAR Routine 10/16/2023 2:36 PM EST BACTERIAL VAGINOSIS PANEL Routine 10/16/2023 12:00 AM EST CHLAMYDIA/N. GONORRHOEAE RNA, TMA, UROGENITAL Routine 10/16/2023 12:00 AM EST documented in this encounter Results * Chlamydia/N. Gonorrhoeae RNA, TMA, Urogenitial (02/19/2024 12:53 PM EDT) CT PCR NOT DETECTED Not Detect. [facility] Comment:A not detected test result does not exclude the possibilityof infection because test results can be affected byimproper specimen collection, concurrent antibiotic therapy,or the number of organisms in the specimen which may bebelow the sensitivity of the test. As with many diagnostictests, results from the Xpert CT/NG assay should beinterpreted in conjunction with other laboratory andclinical data available to the clinician.Xpert CT/NG performance has not been evaluated in patientsless than 14 years of age. The assay should not be used forthe evaluationof suspected sexual abuse or for other medico-legalindications. Additional testing is recommended in anycircumstance when false positive or false negative resultscould lead to adverse medical, social or psychologicalconsequences. NG PCR NOT DETECTED Not Detect. [facility] Comment:A not detected test result does not exclude the possibilityof infection because test results can be affected byimproper specimen collection, concurrent antibiotic therapy,or the number of organisms in the specimen which may bebelow the sensitivity of the test. As with many diagnostictests, results from the Xpert CT/NG assay should beinterpreted in conjunction with other laboratory andclinical data available to the clinician.Xpert CT/NG performance has not been evaluated in patientsless than 14 years of age. The assay should not be used forthe evaluationof suspected sexual abuse or for other medico-legalindications. Additional testing is recommended in anycircumstance when false positive or false negative resultscould lead to adverse medical, social or psychologicalconsequences. 02/19/2024 12:5 3 PM EDT 02/19/2024 4:05 PM EDT Narrative [facility] - 02/19/2024 6:29 PM EDT Vaginal Generic External Data Provider LAB MICROBIOLOGY - GENERAL ORDERABLES Final Result [facility] [address] [place] [phone] * (ABNORMAL) Bacterial Vaginosis (02/19/2024 12:53 PM EDT) TRICHOMONAS VAGINALIS DETECTION BY PCR NOT DETECTED Not Detect [facility] BACTERIAL VAGINOSIS DETECTION BY PCR NEGATIVE Negative [facility] Comment:The BV organism targ ets of the Xpert Xpress MVP test can becommensal in women; Xpert Xpress MVP positive results forbacterial vaginosis should be considered in conjunction withother clinical and patient information to determine thedisease status. Organisms that are not detected by the XpertXpress MVP test have also been reported to be associatedwith BV and aerobic vaginitis.The Xpert Xpress MVP test performance has not been evaluatedin patients under the age of 14. TANISHA GROUP DETECTION BY PCR DETECTED(A) Not Detect [facility] Tanisha glab krusei PCR NOT DETECTED Not Detect [facility] 02/19/2024 12:5 3 PM EDT 02/19/2024 4:05 PM EDT us Generic External Data Provider LAB MICROBIOLOGY - GENERAL ORDERABLES Final Result [facility] [address] [place] [phone] * SARS-CoV-2 RNA, Influenza A/B, and RSV RNA, Ql NAAT (02/17/2024 7:58 AM EDT) Influenza A PCR NEGATIVE Negative [facility] Influenza B PCR NEGATIVE Negative [facility] Resp Syncy Virus RNA Qual PCR NEGATIVE Negative [facility] SARS COV2 PCR NEGATIVE Negative [facility] Comment:All test results mus t be correlated with clinical findings.Negative results do not preclude SARS-CoV2, influenza Avirus, influenza B virus and/or RSV infectionand should not be used as the sole basis for treatment orother patient management decisions. Negative results must becombined with clinical observations, patient history, andepidemiological information.This test has not been evaluated for monitoring treatment ofinfection.This test has been authorized by the FDA under an EmergencyUse Authorization (EUA) for use by authorized laboratories.Testing performed on the [employer] GeneXpert utilizingreal-time RT-PCR.All SARS CoV2 and positive influenza A/B results arereported to [facility]. 02/17/2024 7:58 AM EDT 02/17/2024 8:01 AM EDT us Generic External Data Provider LAB MICROBIOLOGY - GENERAL ORDERABLES Final Result Performing Organization Address [facility] de Phone Number [facility] [address] [place] [phone] * Strep A Nucleic Acid (02/17/2024 7:58 AM EDT) IDNOW SERIAL# [id number] [facility] Strep A Nucleic Acid Negative Negative [facility] Comment:All test results mus t be correlated with clinical findings.This test has not been evaluated for monitoring treatment ofinfection.Additional follow-up testing using the culture method isrequired if the result is negative and clinical symptomspersist, or in the event of an acute rheumatic feveroutbreak. 02/17/2024 7:58 AM EDT 02/17/2024 8:01 AM EDT Likelii External Data Provider LAB MICROBIOLOGY - GENERAL ORDERABLES Final Result Performing Organization Address [facility] de Phone Number [facility] [address] [place] [phone] * Pap Smear (10/16/2023 2:36 PM EST) 10/16/2023 2:36 PM EST 10/17/2023 11:00 AM EST Narrative [facility] - 11/14/2023 10:15 AM EDT ----- ------- Name: Opal Choi Age/Sex: 23/F : 2000 Unit#: [id number] Attend Dr: Rosie Lin CNM Re10/16/23 Status: DEP [facility] Disch: ----- ------- SPEC : [id number] RECD: 10/17/23 STATUS: CLAU BERNABE NUM: [id number] RODERICK: 10/16/23-1436 [facility] DR: Rosie Lin [facility] ENTERED: 10/17/23115 SP TYPE: Pap Smr OTHR DR: JERONIMO KEITA NP ORDERED: Pap Smear, PAP path review Interpretation General Category: Epithelial cell abnormality. Adequacy: Endocervical component present. Interpretation: Atypical squamous cells of undetermined significance. HPV mRNA E6/E7: DETECTED This assay detects E6/E7 viral messenger RNA (mRNA) from 14 high-risk HPV types (16, 18, 31, 33, 35, 39, 45, 51, 52, 56, 58, 59, 66, 68) HPV Type 16 RNA: Not Detected HPV Type 18/45 RNA: Not Detected HPV testing performed by [facility], [place], [place]. See reference laboratory portion of the EMR for entire report. Clinical Information LMP: No LMP because nexplanon Previous PAP test: No previous pap Material Received ThinPrep-Cervical Copies To: Rosie Lin [address] [place] [address] JERONIMO KEITA NP [address] [phone] ----- ------- Signed (signature on file) Simona Torres MD 11/14/23 1015 ----- ------- END OF REPORT Generic External Data Provider LAB CYTOLOGY ORDE RABLES Final Result Performing Organization Address [facility]/ZIP Co de Phone Number [facility] [address] [place] [phone] * (ABNORMAL) Bacterial Vaginosis (10/16/2023 12:00 AM EST) [facility] Trichomonas DNA Probe Negative Negative [facility] Gardnerella DNA Probe Positive(A) Negative [facility] Tanisha DNA Probe Negative Negative [facility] 10/16/2023 10/16/2023 Generic External Data Provider LAB MICROBIOLOGY - GENERAL ORDERABLES Final Result Performing Organization Address [facility] Co de Phone Number [facility] [address] [place] [phone] * Chlamydia/N. Gonorrhoeae RNA, TMA, Urogenitial (10/16/2023 12:00 AM EST) [facility] CT PCR NOT DETECTED Not Detect. [facility] Comment:A not detected test result does not exclude the possibilityof infection because test results can be affected byimproper specimen collection, concurrent antibiotic therapy,or the number of organisms in the specimen which may bebelow the sensitivity of the test. As with many diagnostictests, results from the Xpert CT/NG assay should beinterpreted in conjunction with other laboratory andclinical data available to the clinician.Xpert CT/NG performance has not been evaluated in patientsless than 14 years of age. The assay should not be used forthe evaluationof suspected sexual abuse or for other medico-legalindications. Additional testing is recommended in anycircumstance when false positive or false negative resultscould lead to adverse medical, social or psychologicalconsequences. NG PCR NOT DETECTED Not Detect. [facility] Comment:A not detected test result does not exclude the possibilityof infection because test results can be affected byimproper specimen collection, concurrent antibiotic therapy,or the number of organisms in the specimen which may bebelow the sensitivity of the test. As with many diagnostictests, results from the Xpert CT/NG assay should beinterpreted in conjunction with other laboratory andclinical data available to the clinician.Xpert CT/NG performance has not been evaluated in patientsless than 14 years of age. The assay should not be used forthe evaluationof suspected sexual abuse or for other medico-legalindications. Additional testing is recommended in anycircumstance when false positive or false negative resultscould lead to adverse medical, social or psychologicalconsequences. 10/16/2023 10/16/2023 Narrative [facility] - 10/17/2023 2:52 AM EST Vaginal us Generic External Data Provider LAB MICROBIOLOGY - GENERAL ORDERABLES Final Result [facility] [address] [place] [phone] documented in this encounter Visit Diagnoses Not on filedocumented in this encounter Care Teams Shot Blaster Relationship Specialty Start Date End Date Jeronimo Keita ANP [address] [place] [phone] PCP - General Family Medicine 06/11/23 Gertrudis Wright Endocrinology 08/11/25 documented as of this encounter
--- OUTSIDE RECORDS SUMMARY | 2025-08-18 19:07 | XMS_ITS | Clinical Summary ---
Author Organization [employer] Address [address] [facility] 7t [place] [address] Care Team Providers Care Final Assembly Inspector Name Role Phone Jeronimo Keita Primary Care Provider [phone] Allergies No known active allergies Medications Pentips 32G X 4 MM misc 2 Active Ketotifen Fumarate 0.035 % solution Administer 1 drop into affected eye(s) if needed each day (eye symptoms). 5 mL 4 Active metFORMIN XR (Glucophage-XR ) 500 MG 24 hr tabletIndicati ons:Type 2 diabetes mellitus with hyperglycemia, with long-term current use of insulin (HCC) Take 2 tablets (1,000 mg) by mouth 2 times daily. 360 tablet 1 4 Active Dulaglutide (Trulicity) 3 MG/0.5ML solution auto-injectorI ndications:Typ e 2 diabetes mellitus with hyperglycemia, with long-term current use of insulin ([facility]) Inject 0.5 mL (3 mg) under the skin every 7 (seven) days. 2 mL 2 4 Active Continuous Glucose Sound Assistant (FreeStyle Maggie 2 Starks) deviceIndicati ons:Type 2 diabetes mellitus with hyperglycemia, with long-term current use of insulin ([facility]) Scan sensor every 8 hours 1 each 4 Active ketoconazole (NIZOral) 2 % creamIndicatio ns:Facial rash Apply topically to face after washing, once daily 60 g 1 4 Active ketoconazole (NIZOral) 2 % shampooIndicat ions:Seborrhei c dermatitis of scalp Use 3 times per week to wash hair 360 mL 3 4 Active metroNIDAZOLE (Metrogel) 0.75 % gelIndications :Facial rash Apply topically 2 times daily. To face 45 g 1 02/14/202 5 026 Active albuterol 108 (90 Base) MCG/ACT inhalerIndicat ions:Wheezing Inhale 2 puffs every 6 (six) hours if needed for wheezing. 18 g 1 5 026 Active Continuous Glucose Sensor (Dexcom G7 Sensor) [facility] Dexcom G7 CGM sensor, See Instructions, # 3 each, Refills 11, Tot. Refills 11, Maintenance, to continuouslky monitor blood glucose E11.9, 06/26/24 5:17:00 PM EDT, Supply, 148.5, cm, 06/25/24 15:07:00 EDT, Height, 90, kg, 09/11/23 14:35:00 EST, Dry Weight 4 Active glipiZIDE (Glucotrol) 5 MG tablet Take 5 mg by mouth. 5 Active Baqsimi One Pack 3 MG/DOSE nasal powder Administer 3 mg into affected nostril(s). 5 Active insulin glargine (Basaglar KwikPen) 100 UNIT/ML pen Inject 55 Units under the skin. 5 Active glucose blood (FreeStyle Precision Scout Test) test stripIndicatio ns:Type 2 diabetes mellitus with hyperglycemia, with long-term current use of insulin (HCC) Use to test blood sugar 3 times daily 100 each 12 4 025 Active Problems Problem Noted Date Diagnosed Date Class 2 obesity 06/10/2023 06/10/2023 Hyperandrogenism 06/10/2023 06/10/2023 History of pancreatitis 06/10/2023 Overview (06/10/2023): 06/2022 at [facility] History of cholecystectomy 06/10/2023 Overview (06/10/2023): 08/2022 Dr. Montejo Mixed anxiety and depressive disorder 03/27/2022 06/10/2023 Cataplexy and narcolepsy 08/22/2021 023 Diabetes mellitus 08/22/2021 06/10/2023 Sleep apnea 08/22/2021 06/10/2023 Morbid obesity (CMS/HCC) 02/15/2014 023 Developmental delay 02/07/2014 06/10/2023 Encounters Date Type Department Care Team Description 08/11/2025 Telephone [facility] MEDICINE [address] [place] [address] Maria Esther Fallon, RN Care Coordination 08/08/2025 Telephone [facility] [address] [place], [place] [phone] Rosie Larry, ANGIE Appointment Confirmation 06/09/2025 Telephone [facility] [address] [place], [place] [phone] Jeronimo Keita ANP from Last 3 Months Immunizations Immunization Administration Dates Next Due DTP 2001 DTaP, 5 pertussis antigens 12/04/2007,11/17/2002 ,09/16/2002 HPV, Quadrivalent 02/07/2014,03/30/2013,12/30/19 13 Hep A, ped/adol, 2 dose 12/02/2016,02/07/2014 Hep B, Adolescent or Pediatric 2001,2000,2001 Hib (HbO) 11/17/2002, 2,2001,06/29 IPV 12/04/2007, 2,2001,06/29 Influenza injectable quadriv alent preservative free 06/11/2023,08/30/2022,10/08/2021,07/21 Influenza, seasonal, injecta ble, preservative free 08/10/2024 MMR 12/04/2007,09/16/2002 Meningococcal MCV4P ACYW-135 07/21/2017,12/30/19 13 Pfizer Covid-19 Vaccine 12+ 08/10/2024,0 10/07/2023,04/02/2021,03/12 Pfizer Covid-19 Vaccine 12+ Bivalent 08/30/2022 Pneumococcal Conjugate PCV 20 06/11/2023 Pneumococcal Conjugate PCV 7 11/17/2002,11/24/19 02,2001 TD (adult), 2 Lf tetanus tox oid, preservative free, adsorbed 10/07/2023 Tdap 12/29/2012 Varicella 11/22/2011,09/16/2002 Family History Medical History Relation Name Comments Diabetes Mother Relation Name Status Comments Mother Social History Tobacco Use Types Packs/Day Years Used Date Smoking Tobacco: Never Smokeless Tobacco: Never Tobacco Cessation:Counseling Given: Not Answered Alcohol Use Standard Drinks/Week Comments Never 0 (1 standard drink = 0.6 oz pur e alcohol) Depression Answer Date Recorded Patient Health Questionnaire-9 Score 10 08/10/2024 Patient Health Questionnaire-9 Score 10 08/10/2024 Last PHQ-9: Questionnaire Data Not on file 1 10/11/2023 Housing Stability Answer Date Recorded What is your housing situation today? I have morena urban 06/16/[address] you li [...] Answer Date Recorded Patient Health Questionnaire-2 Score 3 08/10/2024 Internet Access Answer Date Recorded Internet Access Q1 Yes 08/02/2024 Internet Access Q2 Not on file 08/02/2024 Comments Unknown Sex and Gender Information Value Date Recorded Sex Assigned at Female 07/01/2022 10:25 AM EDT Legal Sex Female 10:25 AM EDT Gender Identity Choose not to disclose 10:25 AM EDT Sexual Orientation Choose not to disclose 2021 10:25 AM EDT Last Filed Vital Signs Vital Sign Reading Time Taken Comments Blood Pressure 123/74 10/15/2024 3:06 PM EST Pulse 103 10/15/2024 3:06 PM EST Temperature 36.4 C (97.5 F) 10/15/2024 3:06 PM EST Respiratory Rate 14 10/15/2024 3:06 PM EST Oxygen Saturation 98% 10/15/2024 3:06 PM EST Inhaled Oxygen Concentration - - Weight 88 kg (194 lb) 10/15/2024 3:06 PM EST Height 148.6 cm (4' 10.5 ) 10/07/2023 9:48 AM ES T Body Mass Index 39.86 10/07/2023 9:48 AM EST Plan of Treatment Health Maintenance Due Date Last Done Comments HIV Screening 2001 Lipid Panel 2001 Disability Screening 2001 Diabetes: Foot Exam 2011 Alcohol/Substance Use Screening 2013 Family Planning (PISQ) 2016 Hepatitis C Screening 2019 Diabetes: Urine Protein Screening 2020 SDOH Screening 09/25/2024 09/25/2023 Diabetes: Hemoglobin A1C 01/12/2025 025, 08/10/2024, 10/07/2023, Additional history exists Depression Monitoring 02/08/2025 08/10/2024, 024 COVID-19 Vaccine ( season) 2025 08/10/2024, 10/07/2023, 08/30/2022, Additional history exists Influenza Vaccine (#1) 2025 , 06/11/2023, 08/30/2022, Additional history exists Tobacco Screening 08/10/2025 08/10/2024 Eye Exam 10/15/2025 Pap Smear 10/16/2026 10/16/2023 DTaP/Tdap/Td Vaccines (7 - Td or Tdap) 10/07/2033 10/07/2023, 12/29/2012, 12/04/2007, Additional history exists Zoster Vaccines (1 of 2) 2051 RSV Patients and Patients Aged 60 years or older (1 - 1-dose 75+ series) 2076 Hepatitis B Vaccines Completed 2001, 2001, 2001 HIB Vaccines Completed 11/17/2002, 10/31, 2001, Additional history exists IPV Vaccines Completed 12/04/2007, 10/31, 2001, Additional history exists HPV Vaccines Completed 02/07/2014, 03/03, 12/29/2012 Hepatitis A Vaccines Completed 12/02/2016, 02/08/20 14 Meningococcal Vaccine Completed 07/21/2017, 013 Pneumococcal Vaccine: Pediatrics (0 to 5 Years) and At-Risk Patients (6 to 49) Years Completed 06/11/2023, 11/17/2002, 2001, Additional history exists Meningococcal B Vaccine Aged Out No l onger eligible based on patient's age to complete this topic RSV under 20 months Aged Out No longe r eligible based on patient's age to complete this topic Rotavirus Vaccines Aged Out No longer eligible based on patient's age to complete this topic Procedures Procedure Name Priority Date/Time Associated Diagnosis Comments POCT GLYCATED HEMOGLOBIN, TOTAL Routine 10/15/2024 3:25 PM EST Type 2 diabetes mellitus with hyperglycemia, with long-term current use of insulin ([facility]) PAP SMEAR Routine 10/16/2023 2:36 PM EST from Last 3 Months or Most Recently Relevant to Health Maintenance Results * (ABNORMAL) POCT HGB A1C (10/15/2024 3:25 PM EST) Hemoglobin A1C 10.2(A) 4.0 - 6.0 % QC Media Lot # [id number] Lot# Expiration Date ,587 Blood 10/15/2024 3:25 PM EST us [facility] POINT OF CARE TEST ENTER/EDIT OR DERABLES Final Result * Pap Smear (10/16/2023 2:36 PM EST) 10/16/2023 2:36 PM EST 10/17/2023 11:00 AM EST Narrative [facility] - 11/14/2023 10:15 AM EDT ----- ------- Name: Opal Choi Age/Sex: 23/F : 2000 Unit#: [id number] Attend Dr: Rosie Lin [facility] Re10/16/23 Status: DEP REF Location: .LAB Disch: ----- ------- SPEC : [id number] RECD: 10/17/23-1099 STATUS: CLAU BERNABE NUM: [id number] RODERICK: 10/16/23-14[address] [facility] [address]: Rosie Lin [facility] ENTERED: 10/17/23-1153 SP TYPE: Pap Smr OTHR DR: JERONIMO [...] RNA: Not Detected HPV testing performed by [facility], [place], [place]. See reference laboratory portion of the EMR for entire report. Clinical Information LMP: No LMP because nexplanon Previous PAP test: No previous pap Material Received ThinPrep-Cervical Copies To: Rosie Lin [address] [place], [place] [phone] JERONIMO KEITA NP [address] [address] ----- ------- Signed (signature on file) Simona Torres MD 11/14/23 1015 ----- ------- END OF REPORT us Generic External Data Provider LAB CYTOLOGY ISSA TERRY Final Result [facility] [address] [place] [phone] from Last 3 Months or Most Recently Relevant to Health Maintenance [facility] Care Teams Final Assembly Inspector Relationship Specialty Start Date End Date Jeronimo Keita ANP [address] [place] [phone] PCP - General Family Medicine 06/11/23 Gertrudis Wright Endocrinology 08/11/25
--- OUTSIDE RECORDS SUMMARY | 2025-08-18 19:07 | XMS_ITS | Encounter Summary ---
Author Organization [employer] Address [address] [place] [address] Care Team Providers Care Elevator Installer Name Role Phone Lacie Handley Primary Care Provider [phone] Reason for Visit * Reason Onset Date Comments Letter 09/07/2024 Encounter Details Date Type Department Care Team ([facility] st Contact Info) Description 09/07/2024 Telephone [facility] MEDICINE [address] [place], [place] [phone] Lacie Handley ANP [address] [place] [address] Letter Social History Tobacco Use Types Packs/Day Years [...] as of this encounter Miscellaneous Notes * Telephone Encounter - Khris Modi - 09/07/2024 12:03 PM EST Tc from [place] with adult foster care program requesting status on a letter that faxed on 08/27 in regards to inside sales trainer and more. Flores would like a call back regarding letter in case has any questions, she will be re faxing letter just incase. Please contact Flores at [phone]. documented in this encounter Plan of Treatment Not on file documented as of this encounter Visit Diagnoses Not on filedocumented in this encounter Additional Health Concerns Assessment Noted Time PHQ-9 Depression Total Score: 10 024 9:53 AM EST documented as of this encounter Care Teams Elevator Installer Relationship Specialty Start Date End Date Lacie Handley ANP [address] [place] [id number] PCP - General Family Medicine 06/11/23 Gertrudis Wright Endocrinology 08/11/25 documented as of this encounter
== END 2025-08-18 15:28 | disposition home or self-care (01) ==
PROVIDERS: PCP Nurse Practitioner Primary Care; Visit Provider Obstetrics & Gynecology
DX: Z01.419 Encounter for gynecological examination (general) (routine) without abnormal findings (principal)
CPT/HCPCS: G0101; Q0091